=== PATIENT | female | born 1970 | race Caucasian/White ===

== ENCOUNTER 2016-05-05 18:29 | Inpatient (IN) | payer OTHER ==
[~2016-05-05] VITALS: Ht 165.1 cm; Wt 91.9 kg
[2016-05-05 19:02] LABS: BASO % 0.2 %; BASO ABS # 0.03 K/uL (0-0.2); COMPLETE YES; EOS % 1.8 %; HEMATOCRIT 37.7 % (37-47); IG% 0.4 %; LYMPH % 25.7 %; LYMPH ABS # 3.19 K/uL (1.2-3.4); MEAN CELL VOLUME 78.7 fL (80-100); MEAN CORPUSCULAR HEMOGLOBIN 27.6 pg (25-34); MONO % 7.6 %; NEUT % 64.3 %; PLATELET COUNT 306 K/uL (130-400); RED BLOOD COUNT 4.79 M/uL (4.2-5.4); WHITE BLOOD COUNT 12.43 K/uL (4.8-10.8)
--- NOTE | 2016-05-05 19:03 | DIAGNOSTIC IMAGING REPORT ---
CHEST ONE VIEW PORTABLE HISTORY: Altered mental status. COMPARISON: None. FINDINGS: The lungs are clear. Cardiac silhouette is normal in size. No pleural effusions. No pneumothorax. IMPRESSION: No acute process. Electronically signed by: Fadi Mckenzie M.D. 05/05/2016 7:02 PM Dictated Date/Time: 05/05/2016 7:01 PM
[2016-05-05 19:05] LABS: URINE APPEARANCE CLEAR (CLEAR); URINE BILIRUBIN NEG (NEG); URINE COLOR YELLOW; URINE EPITHELIAL CELL AUTO >30 /lpf (0-5); URINE NITRITE POS (NEG); URINE SPECIFIC GRAVITY 1.023 (1.000-1.030); UROBILINOGEN NEG (NEG); ZZURINE CULT IF INDIC CATH YES
[2016-05-05 19:08] LABS: MANUAL MICROSCOPIC REQUIRED? NO; REVIEW REQ? NO
--- NOTE | 2016-05-05 19:11 | DIAGNOSTIC IMAGING REPORT ---
ADDENDUM A 2.8 cm posterior fossa arachnoid cyst. Electronically signed by: Fadi Mckenzie M.D. 05/05/2016 11:17 PM Dictated Date/Time: 05/05/2016 11:17 PM ORIGINAL REPORT HEAD CT NONCONTRAST CT DOSE: 537.48 mGy.cm HISTORY: Altered mental status. TECHNIQUE: Multiaxial CT images of the head were performed without the use of intravenous contrast. Automated exposure control was utilized for this study. Comparison: None. Findings: The paranasal sinuses and mastoid air cells are clear. There is a large area of encephalomalacia in involving the majority of the right frontal lobe. This is consistent with an old infarct. There is no mass, hematoma or midline shift. There is mild dilatation of the right lateral ventricle due to the encephalomalacia. There are few small scattered hypodense areas within the periphery of the left parietal lobe, left occipital lobe, and within the left basal ganglia. The dominant focus within the left parietal lobe on image 22 measures 1.7 cm. These likely represent small acute to subacute infarcts. Impression: 1. A few small hypodense areas within the periphery of the left parietal lobe, left occipital lobe, and within the left basal ganglia. These are consistent with acute to subacute infarcts. 2. Old large infarct involving the majority of the right frontal lobe. Electronically signed by: Fadi Mckenzie M.D. 05/05/2016 7:09 PM Dictated Date/Time: 05/05/2016 7:03 PM
[2016-05-05 19:16] LABS: INR 0.9 (0.9-1.1); PARTIAL THROMBOPLASTIN RATIO 0.8; PROTHROMBIN TIME (PATIENT) 9.7 SECONDS (9.0-12.0)
[2016-05-05] MEDS ORDERED: ASPIRIN 324 MG CHEW PO STA (19:20)
[2016-05-05 19:23] LABS: BLOOD UREA NITROGEN 25 mg/dl (7-18); BUN/CREATININE RATIO 17.9 (10-20); CALCIUM 8.9 mg/dl (8.5-10.1); CARBON DIOXIDE 24 mmol/L (21-32); CHLORIDE 103 mmol/L (98-107); GLUCOSE 340 mg/dl (70-99); POTASSIUM 4.1 mmol/L (3.5-5.1); SODIUM 137 mmol/L (136-145)
[2016-05-05 19:26] LABS: ALT/SGPT 28 U/L (12-78); AST/SGOT 11 U/L (15-37)
[2016-05-05 19:33] LABS: ALKALINE PHOSPHATASE 106 U/L (45-117); BETA-HYDROXYBUTYRATE 3.03 mg/dL (0.2-2.81)
[2016-05-05] MEDS ORDERED: GLUCOSE 40% GEL 15 GM TUBE PO PRN (19:45)
[2016-05-05] MEDS ORDERED: DEXTROSE 50% 50 ML SYR IV PRN (19:45)
[2016-05-05] MEDS ORDERED: ACETAMINOPHEN IV 100 ML IV PRN (19:45)
[2016-05-05] MEDS ORDERED: OPTIRAY 320 IV PRN (19:45)
[2016-05-05] MEDS ORDERED: ONDANSETRON INJ 2 MG/ML 2 ML VIAL IV PRN (19:45)
[2016-05-05] MEDS ORDERED: GLUCOSE 10 TABS/TUBE PO PRN (19:45)
[2016-05-05] MEDS ORDERED: GLUCAGON FOR INJ 1 MG VIAL SQ PRN (19:45)
[2016-05-05] MEDS ORDERED: DiphenhydrAMINE HCL 50 MG/ML VIAL IV PRN ×2 (19:45)
[2016-05-05] MEDS ORDERED: PHARMACIST DISCHARGE MED REC CONSULT PRN (19:45)
[2016-05-05] MEDS ORDERED: ASPIRIN 300 MG SUPP PR ONE (20:00)
--- NOTE | 2016-05-05 20:10 | EMERGENCY ROOM VISIT NOTE ---
History Report prepared by Belen: Jacques Lam Under the Supervision of: Dr. Omar Paredes D.O. First contact with patient: 18:24 Chief Complaint: ALTERED MENTAL STATUS Stated Complaint: ALETERED MENTAL STATUS History of Present Illness The patient is a 45 year old female who presents to the Emergency Room for a mental health evaluation. This HPI and ROS is limited due to altered mental status. Per EMS, the patient's name is Deisi Colby. She was in an unknown hospital yesterday for a stoke. She signed out AMA. She also would not tell EMS anything. She was found in the back of her 's truck with urine underneath of her. When they asked the patient questions, she would just stare. Her blood sugar was 325. It is unknown if the patient lost consciousness, but her lungs are clear. She keeps her left arm rigid which has been occurring for longer than a week but more than a month. She was also crying when EMS arrived. The did not tell EMS anything. They got in touch with the patient's [id number], and she told EMS that the patient has a history of TIA's. The patient seems to be able to answer specific yes or no questions. She denied any fear of or harm done by her . The patient was given 0.4 mg Narcan en ROUTE with no change. Patient denies headache, change in vision, fevers, chest pain, shortness of breath, nausea, vomiting, diarrhea, pain with urination, melena, and any other pain. She does not use IV drugs. She is not on blood thinners. 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 Review of Systems Limited due to AMS. Past Medical & Surgical Medical Problems: (1) CVA (cerebral vascular accident) The patient has a history of strokes and TIA's. She denies any history of seizures. Family History Unable to obtain. Social History Smoking Status: Unknown if Ever Smoked Smokeless Tobacco Use: Unknown Drug Use: none Marital Status: Housing Status: lives with significant other Current/Historical Medications Scheduled Insulin Glargine (Lantus Solostar), 10 UNITS SC QPM Allergies Coded Allergies: Penicillins (Unverified Allergy, Unknown, UNKNOWN, 05/05/16) Physical Exam Vital Signs Date Time Temp Pulse Resp B/P Pulse Ox O2 Delivery O2 Flow Rate FiO2 05/05/16 19:49 96 20 204/105 98 Room Air 05/05/16 19:03 92 16 187/109 97 Room Air 05/05/16 18:39 96 05/05/16 18:34 37.0 97 23 225/106 97 Room Air 05/05/16 18:34 97 Room Air Physical Exam GENERAL: alert, sitting up in bed, able to transfer from stretcher to bed, holding left upper extremity against chest, on nasal canula. EYE EXAM: normal conjunctiva, PERRL and EOM's intact OROPHARYNX: no exudate, no erythema, lips, buccal mucosa, and tongue normal and mucous membranes are moist NECK: supple, no nuchal rigidity, no adenopathy, non-tender LUNGS: Clear to auscultation. Normal chest wall mechanics HEART: no murmurs, S1 normal and S2 normal, tachycardic ABDOMEN: abdomen soft, non-tender, normo-active bowel sounds, no masses, no rebound or guarding. BACK: Back is symmetrical on inspection and there is no deformity, no midline tenderness, no CVA tenderness. SKIN: no rashes and no bruising UPPER EXTREMITIES: upper extremities are grossly normal. LOWER EXTREMITIES: No pitting edema. NEURO EXAM: Alert, follows commands, answers yes or no questions, left arm has slight rigidity with grasp and is held against chest, left arm is weaker than right, flexion and extension EHL 5/5, gross sensation intact. Medical Decision & Procedures ER Provider Diagnostic Interpretation: Radiology results have been interpreted by the radiologist and reviewed by me. CHEST ONE VIEW PORTABLE HISTORY: Altered mental status. COMPARISON: None. FINDINGS: The lungs are clear. Cardiac silhouette is normal in size. No pleural effusions. No pneumothorax. IMPRESSION: No acute process. Electronically signed by: Fadi Mckenzie M.D. 05/05/2016 7:02 PM Dictated Date/Time: 05/05/2016 7:[address] DOSE: 537.48 mGy.cm HISTORY: Altered mental status. TECHNIQUE: Multiaxial CT images of the head were performed without the use of intravenous contrast. Automated exposure control was utilized for this study. Comparison: None. Findings: The paranasal sinuses and mastoid air cells are clear. There is a large area of encephalomalacia in involving the majority of the right frontal lobe. This is consistent with an old infarct. There is no mass, hematoma or midline shift. There is mild dilatation of the right lateral ventricle due to the encephalomalacia. There are few small scattered hypodense areas within the periphery of the left parietal lobe, left occipital lobe, and within the left basal ganglia. The dominant focus within the left parietal lobe on image 22 measures 1.7 cm. These likely represent small acute to subacute infarcts. Impression: 1. A few small hypodense areas within the periphery of the left parietal lobe, left occipital lobe, and within the left basal ganglia. These are consistent with acute to subacute infarcts. 2. Old large infarct involving the majority of the right frontal lobe. Electronically signed by: Fadi Mckenzie M.D. 05/05/2016 7:09 PM Dictated Date/Time: 05/05/2016 7:03 PM Laboratory Results 05/05/16 18:05 Red Blood Count 4.79, Mean Corpuscular Volume 78.7, Mean Corpuscular Hemoglobin 27.6, Mean Corpuscular Hemoglobin Concent 35.0, Mean Platelet Volume 10.0, Neutrophils (%) (Auto) 64.3, Lymphocytes (%) (Auto) 25.7, Monocytes (%) (Auto) 7.6, Eosinophils (%) (Auto) 1.8, Basophils (%) (Auto) 0.2, Neutrophils # (Auto) 8.00, Lymphocytes # (Auto) 3.19, Monocytes # (Auto) 0.94, Eosinophils # (Auto) 0.22, Basophils # (Auto) 0.03 05/05/16 18:05 Test 05/05/16 18:05 05/05/16 18:46 05/05/16 18:49 White Blood Count 12.43 K/uL (4.8-10.8) Red Blood Count 4.79 M/uL (4.2-5.4) Hemoglobin 13.2 g/dL (12.0-16.0) Hematocrit 37.7 % (37-47) Mean Corpuscular Volume 78.7 fL (80-100) Mean Corpuscular Hemoglobin 27.6 pg (25-34) Mean Corpuscular Hemoglobin Concent 35.0 g/dl (32-36) Platelet Count 306 K/uL (130-400) Mean Platelet Volume 10.0 fL (7.4-10.4) Neutrophils (%) (Auto) 64.3 % Lymphocytes (%) (Auto) 25.7 % Monocytes (%) (Auto) 7.6 % Eosinophils (%) (Auto) 1.8 % Basophils (%) (Auto) 0.2 % Neutrophils # (Auto) 8.00 K/uL (1.4-6.5) Lymphocytes # (Auto) 3.19 K/uL (1.2-3.4) Monocytes # (Auto) 0.94 K/uL (0.11-0.59) Eosinophils # (Auto) 0.22 K/uL (0-0.5) Basophils # (Auto) 0.03 K/uL (0-0.2) RDW Standard Deviation 37.1 fL (36.4-46.3) RDW Coefficient of Variation 12.9 % (11.5-14.5) Immature Granulocyte % (Auto) 0.4 % Immature Granulocyte # (Auto) 0.05 K/uL (0.00-0.02) Prothrombin Time 9.7 SECONDS (9.0-12.0) Prothromb Time International Ratio 0.9 (0.9-1.1) Activated Partial Thromboplast Time 21.7 SECONDS (21.0-31.0) Partial Thromboplastin Ratio 0.8 Anion Gap 10.0 mmol/L (3-11) Estimated GFR () 53.2 Estimated GFR (Non- 45.9 BUN/Creatinine Ratio 17.9 (10-20) Calcium Level 8.9 mg/dl (8.5-10.1) Total Bilirubin 0.3 mg/dl (0.2-1) Direct Bilirubin < 0.1 mg/dl (0-0.2) Aspartate Amino Transf (AST/SGOT) 11 U/L (15-37) Alanine Aminotransferase (ALT/SGPT) 28 U/L (12-78) Alkaline Phosphatase 106 U/L (45-117) Total Protein 8.2 gm/dl (6.4-8.2) Albumin 3.5 gm/dl (3.4-5.0) Beta-Hydroxybutyric Acid 3.03 mg/dL (0.2-2.81) Bedside Glucose 354 mg/dl (70-90) Urine Color YELLOW Urine Appearance CLEAR (CLEAR) Urine pH 6.0 (4.5-7.5) Urine Specific [place] 1.023 (1.000-1.030) Urine Protein 2+ (NEG) Urine Glucose (UA) 3+ (NEG) Urine Ketones NEG (NEG) Urine Occult Blood NEG (NEG) Urine Nitrite POS (NEG) Urine Bilirubin NEG (NEG) Urine Urobilinogen NEG (NEG) Urine Leukocyte Esterase NEG (NEG) Urine WBC (Auto) 1-5 /hpf (0-5) Urine RBC (Auto) 0-4 /hpf (0-4) Urine Hyaline Casts (Auto) 0 /lpf (0-5) Urine Epithelial Cells (Auto) >30 /lpf (0-5) Urine Bacteria (Auto) 3+ (NEG) Laboratory results per my review. ECG Indication: altered mental status Rate (beats per minute): 100 Rhythm: sinus tachycardia Findings: T-wave inversion, left axis deviation, other (AVL, Late R-wave progression) ED Course ED COURSE: Vital signs were reviewed and showed tachycardia and hypertensive. The patients medical record was reviewed The above diagnostic studies were performed and reviewed. ED treatments and interventions as stated above. 1811: The patient was evaluated in room A1. A complete history and physical examination was performed. 1850: I reevaluated the patient at this time. Her still has not arrived. Her blood pressure is trending downward. 1919: I updated the patient at this time. Aspirin 324 mg PO 0: Upon reevaluation, the patient is resting .I discussed my findings with the patient and she understands and agrees with the treatment plan. Based on the patients age, coexisting illnesses, exam and lab findings the decision to treat as an inpatient was made. The patient remained stable while under my care. The patient will be evaluated by Dr. Jonathan JAIN, for further management. He does not want a CTA of her head, chest, or neck. He will schedule the patient for an MRI. Medical Decision Differential diagnoses includes but is not limited to toxic, metabolic, infectious, traumatic, cardiac, neurologic, hematologic, psychiatric and inflammatory etiologies. Patient is a 45-year-old female who presents the ER via EMS. Per report from EMS the patient was in the back of a truck sleeping as her was driving truck. They are from [place]. Apparently the patient left AMA from hospital earlier today. Upon presentation to the ER she is able to answer yes no questions and follow all commands. She notes that she has had weakness in her left upper extremity which has been there for greater than a week but less than a month. She does not tell me when she started only answering yes and no questions. She denies all other complaints. She was extremely hypertensive. She admits to history of strokes. She denies allergies. We were unable to contact her to obtain a full history. Patient does have weakness and slight rigidity of her left upper extremity with grasp along with flexion and extension. Patient notes that this is been there for several days. I consequently did not call stroke alert because I am uncertain of the timeframe of the onset of the symptoms. We did friend her to CT following obtaining blood work. CT of her head shows an old infarct with multiple new acute and subacute infarcts. I did order a CTA of the head, neck and chest as these do appear to be embolic. I discussed this with Dr. Chandler who evaluated the patient and admitted her. He preferred to cancel the CTs and perform MRIs. I did cancel my CTAs. Patient was admitted to internal medicine. She was hypertensive but his blood pressure came down to 180s upon admission. She was given aspirin rectally. Unable to obtain any other additional history. I did also consider seizures which I favor more likely prior to the CTs which support strokes. Consults Time Called: 1934 Consulting Physician: Dr. Castillo - [facility] [place] Returned Call: 1939 He will be evaluating the patient further. Impression Primary Impression: CVA (cerebral vascular accident) Additional Impressions: Hypertension, Hyperglycemia Scribe Attestation The scribe's documentation has been prepared under my direction and personally reviewed by me in its entirety. I confirm that the note above accurately reflects all work, treatment, procedures, and medical decision making performed by me. Departure Information Dispostion Being Evaluated By Hospitalist Patient Instructions A Signature Page, My [facility]
[2016-05-05] MEDS ORDERED: INSDGIPEN SC (20:32)
--- NOTE | 2016-05-05 22:40 | DIAGNOSTIC IMAGING REPORT ---
Brain MRA HISTORY: Abnormal head CT. Stroke - Attention to [place] [facility] [place] TECHNIQUE: 3-D [id number] MRA of the brain was performed without contrast. COMPARISON STUDY: Head CT 05/05/2016. FINDINGS: Motion artifact results in suboptimal evaluation. The distal vertebral arteries, basilar artery, bilateral ingot stripper are small in caliber but appear patent. Diminutive right ICA. Faint visualization of the proximal right SOFY. The mid to distal right SOFY and the right MCA are not visualized. This is consistent with the patient's old right frontal infarct. Focal signal dropout at the proximal left MCA could be artifactual. The remaining portions of the left MCA are small in caliber but patent. The left SOFY is also small in caliber but patent. IMPRESSION: 1. Nonvisualized/occluded right MCA and SOFY consistent with the patient's history of an old large right frontal lobe infarct. The diminutive right ICA is also secondary to the old infarct. 2. Focal drop out of the proximal left MCA. However, the remaining portions of the left MCA are patent. Therefore, this could be artifact. 3. All of the patient's cerebral vessels appear to be small in caliber which could be congenital. 4. The posterior circulation appears patent. Electronically signed by: Fadi Mckenzie M.D. 05/05/2016 10:38 PM Dictated Date/Time: 05/05/2016 10:32 PM
[2016-05-05] MEDS ORDERED: MAGNEVIST IV PRN (23:00)
--- NOTE | 2016-05-05 23:07 | DIAGNOSTIC IMAGING REPORT ---
NECK MRA HISTORY: Altered mental status. Stroke symptoms. TECHNIQUE: [id number] and gadolinium-enhanced MRA of the neck was performed both before and after the intravenous administration of contrast. All measurements were calculated based on NASCET criteria. COMPARISON STUDY: None. FINDINGS: The aortic arch and proximal great vessels are widely patent. Mild hypoplastic right vertebral artery. The left vertebral artery is patent. Bilateral common carotid arteries are patent. There is a hypoplastic right internal carotid artery without significant stenosis. This corresponds to the old right-sided infarcts. The proximal to mid right vertebral artery appears irregular which may be due to the motion artifact. The distal right vertebral artery is patent. No significant stenosis within the left internal carotid artery. IMPRESSION: 1. No significant stenosis seen within the bilateral common or left internal carotid artery. 2. The right internal carotid artery is diminutive which likely corresponds to the patient's old right-sided infarct. Otherwise, no significant stenosis or occlusion. 3. The proximal to mid right vertebral artery is not well-visualized likely due to motion artifact. Electronically signed by: Fadi Mckenzie M.D. 05/05/2016 11:05 PM Dictated Date/Time: 05/05/2016 11:00 PM
[2016-05-05 23:15] VITALS: BP 173/103; PULSE 97; TEMP 36.9; O2SAT 98
[2016-05-05] MEDS: SODIUM CHLORIDE 0.9% 1000ML 1,000 ML IV SCH (23:52)
[2016-05-06] VITALS (10 sets, daily range): BP systolic 156–186; BP diastolic 95–112; PULSE 84–101; TEMP 36.4–37.4; O2SAT 94–98; BMI 33.7; BMI 34.0
[2016-05-06] MEDS: INSULIN ASPART 100 UNITS/ML 3 ML PEN SC SCH ×5 (00:32→21:08)
--- NOTE | 2016-05-06 01:34 | History and Physical ---
History & Physical Date & Time of Service: May 06, 2016 at 01:11 Chief Complaint: CVA Primary Care Physician: No Doctor, Assigned History of Present Illness Source: patient, hospital records The patient is a 45 old female who is brought to the emergency department due to altered mental status. She has found in the back of her 's truck and a poorly urine. He is a long distance truckerin [place]. She reportedly was in an unknown hospital yesterday being assessed for stroke but then signed out AMA, and would not telemetry in the setting tonight. EMS reports that when they found her left arm was rigid and reportedly has been that way for at least a week. The patient's [id number]-hs-zzj reports that she has history of TIAs. the patient herself is only able to answer yes or no to questions. She was given 0.4 mg of Narcan en route to the hospital with no change in status. Her blood sugar was 325 when tested by EMS at the scene. Social History Smoking Status: Unknown if Ever Smoked Smokeless Tobacco Use: Unknown Drug Use: none Marital Status: Housing status: lives with family Allergies Coded Allergies: Penicillins (Unverified Allergy, Unknown, UNKNOWN, 05/05/16) Home Medications Scheduled Insulin Glargine (Lantus Solostar), 10 UNITS SC QPM Review of Systems The patient is only able to answer yes or no to questions. So, the review of system, as history of present illness, is somewhat restricted. The patient denies chest pain, palpitations, shortness of breath, cough, lower extremity swelling, vision change, hearing change, sore throat, fevers, chills, sweats, weight change, fatigue, nausea, vomiting, abdominal pain, pelvic pain, blood in urine or stool, dysuria, urinary frequency or urgency, lightheadedness , dizziness, headache, rash, abnormal bruising or bleeding, imbalance, arthralgias or myalgias, back or neck pain, night sweats, or allergy symptoms. The review of systems is otherwise negative other than for that already noted above, and at least 10 systems have been reviewed. Physical Exam Vital Signs Date Time Temp Pulse Resp B/P Pulse Ox O2 Delivery O2 Flow Rate FiO2 05/05/16 20:51 92 20 178/111 94 05/05/16 19:49 96 20 204/105 98 Room Air 05/05/16 19:03 92 16 187/109 97 Room Air 05/05/16 18:39 96 05/05/16 18:34 37.0 97 23 225/106 97 Room Air 05/05/16 18:34 97 Room Air The patient is awake, well-developed and adequately nourished, normocephalic and atraumatic, lying in bed and in no acute distress. HEENT--PERRL, mucous membranes and oropharynx dry. Neck--supple, no JVD or bruits, thyroid normal, trachea midline, no adenopathy. Heart--normal S1 and S2, no extra beats, no murmurs, rubs or gallops. Lungs--clear bilaterally , no respiratory distress, no accessory muscle use. Abdomen--normal bowel sounds and soft, nontender and nondistended, no hernias or masses, no organomegaly. Extremities--no cyanosis, clubbing or edema. There are good distal pulses b/l. Dermatologic--normal skin turgor, normal color, warm and dry, no abnormal lymph nodes, no rash. Neurologic--cranial nerves II through XII grossly intact. Remainder of exam limited due to patient's responsiveness. Psychiatric--flat affect. Diagnostics Laboratory Results Results Past 24 Hours Test 05/05/16 18:05 05/05/16 18:46 05/05/16 18:49 05/05/16 20:16 Range/Units White Blood Count 12.43 4.8-10.8 K/uL Red Blood Count 4.79 4.2-5.4 M/uL Hemoglobin 13.2 12.0-16.0 g/dL Hematocrit 37.7 37-47 % Mean Corpuscular Volume 78.7 80-100 fL Mean Corpuscular Hemoglobin 27.6 25-34 pg Mean Corpuscular Hemoglobin Concent 35.0 32-36 g/dl Platelet Count 306 130-400 K/uL Mean Platelet Volume 10.0 7.4-10.4 fL Neutrophils (%) (Auto) 64.3 % Lymphocytes (%) (Auto) 25.7 % Monocytes (%) (Auto) 7.6 % Eosinophils (%) (Auto) 1.8 % Basophils (%) (Auto) 0.2 % Neutrophils # (Auto) 8.00 1.4-6.5 K/uL Lymphocytes # (Auto) 3.19 1.2-3.4 K/uL Monocytes # (Auto) 0.94 0.11-0.59 K/uL Eosinophils # (Auto) 0.22 0-0.5 K/uL Basophils # (Auto) 0.03 0-0.2 K/uL RDW Standard Deviation 37.1 36.4-46.3 fL RDW Coefficient of Variation 12.9 11.5-14.5 % Immature Granulocyte % (Auto) 0.4 % Immature Granulocyte # (Auto) 0.05 0.00-0.02 K/uL Prothrombin Time 9.7 9.0-12.0 SECONDS Prothromb Time International Ratio 0.9 0.9-1.1 Activated Partial Thromboplast Time 21.7 21.0-31.0 SECONDS Partial Thromboplastin Ratio 0.8 Sodium Level 137 136-145 mmol/L Potassium Level 4.1 3.5-5.1 mmol/L Chloride Level 103 98-107 mmol/L Carbon Dioxide Level 24 21-32 mmol/L Anion Gap 10.0 3-11 mmol/L Blood Urea Nitrogen 25 7-18 mg/dl Creatinine 1.40 0.60-1.20 mg/dl Estimated GFR () 53.2 Estimated GFR (Non- 45.9 BUN/Creatinine Ratio 17.9 10-20 Random Glucose 340 70-99 mg/dl Calcium Level 8.9 8.5-10.1 mg/dl Total Bilirubin 0.3 0.2-1 mg/dl Direct Bilirubin < 0.1 0-0.2 mg/dl Aspartate Amino Transf (AST/SGOT) 11 15-37 U/L Alanine Aminotransferase (ALT/SGPT) 28 12-78 U/L Alkaline Phosphatase 106 45-117 U/L Troponin I 0.033 0.032 0-0.045 ng/ml Total Protein 8.2 6.4-8.2 gm/dl Albumin 3.5 3.4-5.0 gm/dl Beta-Hydroxybutyric Acid 3.03 0.2-2.81 mg/dL Bedside Glucose 354 70-90 mg/dl Urine Color YELLOW Urine Appearance CLEAR CLEAR Urine pH 6.0 4.5-7.5 Urine Specific Gilson 1.023 1.000-1.030 Urine Protein 2+ NEG Urine Glucose (UA) 3+ NEG Urine Ketones NEG NEG Urine Occult Blood NEG NEG Urine Nitrite POS NEG Urine Bilirubin NEG NEG Urine Urobilinogen NEG NEG Urine Leukocyte Esterase NEG NEG Urine WBC (Auto) 1-5 0-5 /hpf Urine RBC (Auto) 0-4 0-4 /hpf Urine Hyaline Casts (Auto) 0 0-5 /lpf Urine Epithelial Cells (Auto) >30 0-5 /lpf Urine Bacteria (Auto) 3+ NEG Total Creatine Kinase 30 26-192 U/L Creatine Kinase MB 0.9 0.5-3.6 ng/ml Creatine Kinase MB Ratio 3.0 0-3.0 Test 05/05/16 23:53 Range/Units Bedside Glucose 335 70-90 mg/dl Microbiology Results 05/05/16 Urine Culture, Received Pending Diagnostic Radiology Patient Name: OLIVER BARRERA Unit Number: [id number] Dictated: 05/05/161900 Transcribed: 05/05/161900 [facility] Printed Date/Time: [~ rep prt dt]/[~ rep prt tm] [~ rep ct labl] - [~ rep ct ivnm] [facility] [place] [address] Dictated: 05/05/161900 Transcribed: 05/05/161900 Chairish Printed Date/Time: [~ rep prt dt]/[~ rep prt tm] [~ rep ct labl] - [~ rep ct ivnm] [~ rep ct add3]] CHEST ONE VIEW PORTABLE HISTORY: Altered mental status. COMPARISON: None. FINDINGS: The lungs are clear. Cardiac silhouette is normal in size. No pleural effusions. No pneumothorax. IMPRESSION: No acute process. Electronically signed by: Fadi Mkcenzie M.D. 05/05/2016 7:02 PM Dictated Date/Time: 05/05/2016 7:01 PM The status of this report is Signed. Draft = Not yet reviewed or approved by Radiologist. Signed = Reviewed and approved by Radiologist. <AttendingPhy></AttendingPhy> <FamilyPhy></FamilyPhy> <PrimaryPhy>No Doctor, Assigned</PrimaryPhy> <UnitNumber>[id number]</UnitNumber> <VisitNumber> [id number]</VisitNumber> <PatientName>OLIVER BARRERA</PatientName> < DateOfBirth>1970</DateOfBirth> <Location>[facility]</Location> <ServiceDate>01/11</ServiceDate> <MNE>ESINDI</MNE> <OrderingPhy>ParedesOmar ortega DO</ OrderingPhy> <OrderingPhyMNE>f rep ord dr tran</OrderingPhyMNE> <DictatingPhyMNE> f rep dict dr tran</DictatingPhyMNE> <CCListMNE>f rep ct mne</CCListMNE> < AdmittingPhyMNE>f pt admit dr tran</AdmittingPhyMNE> <AttendingPhyMNE>f pt attend dr tran</AttendingPhyMNE> <ConsultingPhyMNE>f pt consult dr tran</ConsultingPhyMNE> <FamilyPhyMNE>f pt fam dr tran</FamilyPhyMNE> <OtherPhyMNE>f pt other dr tran</OtherPhyMNE> < PrimaryPhyMNE>f pt prim care dr tran</PrimaryPhyMNE> <ReferringPhyMNE>f pt referring dr tran</ReferringPhyMNE> Patient Name: OLIVER ABRRERA Unit Number: [id number] Dictated: 05/05/162316 Transcribed: 05/05/162316 [facility] Printed Date/Time: [~ rep prt dt]/[~ rep prt tm] [~ rep ct labl] - [~ rep ct ivnm] [facility] [place] [address] Dictated: 05/05/162316 Transcribed: 05/05/162316 [facility] Printed Date/Time: [~ rep prt dt]/[~ rep prt tm] [~ rep ct labl] - [~ rep ct ivnm] ADDENDUM A 2.8 cm posterior fossa arachnoid cyst. Electronically signed by: Fadi Mckenzie M.D. 05/05/2016 11:17 PM Dictated Date/Time: 05/05/2016 11:17 PM ORIGINAL REPORT HEAD CT NONCONTRAST CT DOSE: 537.48 mGy.cm HISTORY: Altered mental status. TECHNIQUE: Multiaxial CT images of the head were performed without the use of intravenous contrast. Automated exposure control was utilized for this study. Comparison: None. Findings: The paranasal sinuses and mastoid air cells are clear. There is a large area of encephalomalacia in involving the majority of the right frontal lobe. This is consistent with an old infarct. There is no mass, hematoma or midline shift. There is mild dilatation of the right lateral ventricle due to the encephalomalacia. There are few small scattered hypodense areas within the periphery of the left parietal lobe, left occipital lobe, and within the left basal ganglia. The dominant focus within the left parietal lobe on image 22 measures 1.7 cm. These likely represent small acute to subacute infarcts. Impression: 1. A few small hypodense areas within the periphery of the left parietal lobe, left occipital lobe, and within the left basal ganglia. These are consistent with acute to subacute infarcts. 2. Old large infarct involving the majority of the right frontal lobe. Electronically signed by: Fadi Mckenzie M.D. 05/05/2016 7:09 PM Dictated Date/Time: 05/05/2016 7:03 PM The status of this report is Signed. Draft = Not yet reviewed or approved by Radiologist. Signed = Reviewed and approved by Radiologist. <AttendingPhy></AttendingPhy> <FamilyPhy>No Doctor, Assigned</FamilyPhy> < PrimaryPhy>No Doctor, Assigned</PrimaryPhy> <UnitNumber>[id number]</UnitNumber> <VisitNumber>[id number]</VisitNumber> <PatientName>OLIVER BARRERA</ PatientName> <DateOfBirth>1970</DateOfBirth> <Location>C.ED</Location> < ServiceDate>05/05/16</ServiceDate> <MNE>ESINDI</MNE> <OrderingPhy>Omar Paredes DO</OrderingPhy> <OrderingPhyMNE>f rep ord dr tran</OrderingPhyMNE> < DictatingPhyMNE>f rep dict dr tran</DictatingPhyMNE> <CCListMNE>f rep ct mne</ CCListMNE> <AdmittingPhyMNE>f pt admit dr tran</AdmittingPhyMNE> <AttendingPhyMNE >f pt attend dr tran</AttendingPhyMNE> <ConsultingPhyMNE>f pt consult dr tran</ConsultingPhyMNE> <FamilyPhyMNE>f pt fam dr tran</FamilyPhyMNE> <OtherPhyMNE>f pt other dr tran</OtherPhyMNE> < PrimaryPhyMNE>f pt prim care dr tran</PrimaryPhyMNE> <ReferringPhyMNE>f pt referring dr tran</ReferringPhyMNE> Patient Name: OLIVER BARRERA Unit Number: [id number] Dictated: 05/05/162299 Transcribed: 05/05/162299 [facility] Printed Date/Time: [~ rep prt dt]/[~ rep prt tm] [~ rep ct labl] - [~ rep ct ivnm] [facility] [place] [address] Dictated: 05/05/162299 Transcribed: 05/05/162299 [facility] Printed Date/Time: [~ rep prt dt]/[~ rep prt tm] [~ rep ct labl] - [~ rep ct ivnm] NECK MRA HISTORY: Altered mental status. Stroke symptoms. TECHNIQUE: [id number]-[id number] and gadolinium-enhanced MRA of the neck was performed both before and after the intravenous administration of contrast. All measurements were calculated based on NASCET criteria. COMPARISON STUDY: None. FINDINGS: The aortic arch and proximal great vessels are widely patent. Mild hypoplastic right vertebral artery. The left vertebral artery is patent. Bilateral common carotid arteries are patent. There is a hypoplastic right internal carotid artery without significant stenosis. This corresponds to the old right-sided infarcts. The proximal to mid right vertebral artery appears irregular which may be due to the motion artifact. The distal right vertebral artery is patent. No significant stenosis within the left internal carotid artery. IMPRESSION: 1. No significant stenosis seen within the bilateral common or left internal carotid artery. 2. The right internal carotid artery is diminutive which likely corresponds to the patient's old right-sided infarct. Otherwise, no significant stenosis or occlusion. 3. The proximal to mid right vertebral artery is not well-visualized likely due to motion artifact. Electronically signed by: Fadi Mckenzie M.D. 05/05/2016 11:05 PM Dictated Date/Time: 05/05/2016 11:00 PM The status of this report is Signed. Draft = Not yet reviewed or approved by Radiologist. Signed = Reviewed and approved by Radiologist. <AttendingPhy></AttendingPhy> <FamilyPhy>No Doctor, Assigned</FamilyPhy> < PrimaryPhy>No Doctor, Assigned</PrimaryPhy> <UnitNumber>[id number]</UnitNumber> <VisitNumber>[id number]</VisitNumber> <PatientName>HOLLYOLIVER</ PatientName> <DateOfBirth>1970</DateOfBirth> <Location>C.[facility]</Location> < ServiceDate>05/05/16</ServiceDate> <MNE>ESINDI</MNE> <OrderingPhy>William Castillo M.D.</OrderingPhy> <OrderingPhyMNE>f rep ord dr tran</OrderingPhyMNE> < DictatingPhyMNE>f rep dict dr tran</DictatingPhyMNE> <CCListMNE>f rep ct mne</ CCListMNE> <AdmittingPhyMNE>f pt admit dr tran</AdmittingPhyMNE> <AttendingPhyMNE >f pt attend dr tran</AttendingPhyMNE> <ConsultingPhyMNE>f pt consult dr tran</ConsultingPhyMNE> <FamilyPhyMNE>f pt fam dr tran</FamilyPhyMNE> <OtherPhyMNE>f pt other dr tran</OtherPhyMNE> < PrimaryPhyMNE>f pt prim care dr tran</PrimaryPhyMNE> <ReferringPhyMNE>f pt referring dr tran</ReferringPhyMNE> Patient Name: OLIVER BARRERA Unit Number: [id number] Dictated: 05/05/162231 Transcribed: 05/05/162231 [facility] Printed Date/Time: [~ rep prt dt]/[~ rep prt tm] [~ rep ct labl] - [~ rep ct ivnm] [facility] [place] [address] Dictated: 05/05/162231 Transcribed: 05/05/162231 [facility] Printed Date/Time: [~ rep prt dt]/[~ rep prt tm] [~ rep ct labl] - [~ rep ct ivnm] IMAGING [~ rep ct add3]] Brain MRA HISTORY: Abnormal head CT. Stroke - Attention to [place] TECHNIQUE: 3-D [id number]-[id number] MRA of the brain was performed without contrast. COMPARISON STUDY: Head CT 05/05/2016. FINDINGS: Motion artifact results in suboptimal evaluation. The distal vertebral arteries, basilar artery, bilateral insurance processing clerk are small in caliber but appear patent. Diminutive right ICA. Faint visualization of the proximal right SOFY. The mid to distal right SOFY and the right MCA are not visualized. This is consistent with the patient's old right frontal infarct. Focal signal dropout at the proximal left MCA could be artifactual. The remaining portions of the left MCA are small in caliber but patent. The left SOFY is also small in caliber but patent. IMPRESSION: 1. Nonvisualized/occluded right MCA and SOFY consistent with the patient's history of an old large right frontal lobe infarct. The diminutive right ICA is also secondary to the old infarct. 2. Focal drop out of the proximal left MCA. However, the remaining portions of the left MCA are patent. Therefore, this could be artifact. 3. All of the patient's cerebral vessels appear to be small in caliber which could be congenital. 4. The posterior circulation appears patent. Electronically signed by: Fadi Mckenzie M.D. 05/05/2016 10:38 PM Dictated Date/Time: 05/05/2016 10:32 PM The status of this report is Signed. Draft = Not yet reviewed or approved by Radiologist. Signed = Reviewed and approved by Radiologist. <AttendingPhy></AttendingPhy> <FamilyPhy>No Doctor, Assigned</FamilyPhy> < PrimaryPhy>No Doctor, Assigned</PrimaryPhy> <UnitNumber>[id number]</UnitNumber> <VisitNumber>[id number]</VisitNumber> <PatientName>OLIVER BARRERA</ PatientName> <DateOfBirth>1970</DateOfBirth> <Location>C.ED</Location> < ServiceDate>05/05/16</ServiceDate> <MNE>ESINDI</MNE> <OrderingPhy>William Castillo M.D.</OrderingPhy> <OrderingPhyMNE>f rep ord dr tran</OrderingPhyMNE> < DictatingPhyMNE>f rep dict dr tran</DictatingPhyMNE> <CCListMNE>f rep ct catherinee</ CCListMNE> <AdmittingPhyMNE>f pt admit dr tran</AdmittingPhyMNE> <AttendingPhyMNE >f pt attend dr tran</AttendingPhyMNE> <ConsultingPhyMNE>f pt consult dr tran</ConsultingPhyMNE> <FamilyPhyMNE>f pt fam dr tran</FamilyPhyMNE> <OtherPhyMNE>f pt other dr tran</OtherPhyMNE> < PrimaryPhyMNE>f pt prim care dr tran</PrimaryPhyMNE> <ReferringPhyMNE>f pt referring dr tran</ReferringPhyMNE> EKG EKG shows normal sinus rhythm at 100, with left axis deviation, left ventricular hypertrophy, prolonged QT interval, with no acute ST-T changes. Impression Assessment and Plan Acute to subacute embolic infarcts involving the left hemisphere, greatest in the left occipital and parietal lobes and left basal ganglia, with unchanged encephalomalacia in the right frontal lobe from a prior infarct. The patient be admitted to the telemetry unit, for serial cardiac enzymes, cardiac rhythm monitoring, and a 2-D echocardiogram with Dopplers. She has failed her swallowing study, and has received aspirin via rectal suppository while in the emergency department. She is not a candidate for anticoagulation due to the extensive nature of her previous stroke and her current stroke. Her brain MRA shows a nonvisualized were occluded right MCA and SOFY consistent with an old large right frontal lobe infarct. There is focal dropout of the proximal left MCA, but with remaining portions left MCA patent, this may be artifact. All the patient's cerebral vessels appear to be small in caliber which could be congenital. There is no significant stenosis seen within the bilateral common or left internal carotid arteries. The right internal carotid artery is diminutive was likely responsible patient's old right-sided infarct. We'll consult neurology to see patient in the a.m. Echocardiogram is ordered and will be done in the a.m. I have not ordered a hypercoagulable workup at this time, and this can be ordered if/when appropriate follow-up can be arranged. Permissive hypertension--the patient will be allowed to have blood pressure up to 180/100 J initial interval time related to the Lisa affect. We'll check a fasting lipid profile, however, the patient would not be able to take a statin due to failed swallowing test. Diabetes mellitus her blood sugar upon admission is in the 300s. A hemoglobin A1c has been added. For now we will place her on Accu-Cheks before meals and at bedtime with NovoLog coverage. If her A1c is elevated, would start her on long-acting insulin in a.m. Nothing by mouth status/renal insufficiency--her creatinine upon entrance labs is 1.40. We'll place her on IV fluids and have the patient seen by speech therapy. We'll follow serial basic metabolic panel and magnesium levels. Level of Care Telemetry Advanced Directives Existing Advance Directive: No Existing Living Will: No Existing Power of Forestry Aid: No Resuscitation Status FULL RESUSCITATION VTE Prophylaxis VTE Risk Assessment Done? Y/N: Yes Risk Level: High Given or contraindicated: SCD's
[2016-05-06 04:01] LABS: BASO % 0.3 %; BASO ABS # 0.03 K/uL (0-0.2); COMPLETE YES; EOS % 2.1 %; HEMATOCRIT 35.4 % (37-47); IG% 0.4 %; LYMPH % 27.4 %; LYMPH ABS # 3.05 K/uL (1.2-3.4); MEAN CELL VOLUME 79.9 fL (80-100); MEAN CORPUSCULAR HEMOGLOBIN 27.8 pg (25-34); MEAN CORPUSCULAR HGB CONC 34.7 g/dl (32-36); MEAN PLATELET VOLUME 9.6 fL (7.4-10.4); MONO % 5.7 %; NEUT % 64.1 %; PLATELET COUNT 264 K/uL (130-400); RED BLOOD COUNT 4.43 M/uL (4.2-5.4); WHITE BLOOD COUNT 11.13 K/uL (4.8-10.8)
[2016-05-06 04:17] LABS: PARTIAL THROMBOPLASTIN RATIO 0.9; PROTHROMBIN TIME (PATIENT) 10.3 SECONDS (9.0-12.0)
[2016-05-06 04:20] LABS: ALT/SGPT 26 U/L (12-78); AST/SGOT 9 U/L (15-37); BLOOD UREA NITROGEN 24 mg/dl (7-18); BUN/CREATININE RATIO 18.7 (10-20); CALCIUM 8.2 mg/dl (8.5-10.1); CARBON DIOXIDE 23 mmol/L (21-32); CHLORIDE 109 mmol/L (98-107); GLUCOSE 280 mg/dl (70-99); POTASSIUM 3.8 mmol/L (3.5-5.1); SODIUM 142 mmol/L (136-145)
[2016-05-06 04:22] LABS: ALKALINE PHOSPHATASE 90 U/L (45-117); CHOLESTEROL 254 mg/dl (0-200); CHOLESTEROL/HDL RATIO 7.5; HDL CHOLESTEROL 34 mg/dl; TRIGLYCERIDES 582 mg/dl (0-150)
[2016-05-06 06:27] LABS: ESTIMATED AVERAGE GLUCOSE 372 mg/dl; HA1C FLAG Normal (Normal)
[2016-05-06] MEDS ORDERED: INFLUENZA VIRUS QUAD VACCINE 0.5 ML SYR IM. ONE (06:45)
[2016-05-06] MEDS ORDERED: PNEUMOCOCCAL ADMINISTRATION CHARGE ONE (06:45)
[2016-05-06] MEDS ORDERED: PNEUMOCOCCAL POLYSACCHARIDES 25 MCG/0.5 ML VIAL/SYR IM. ONE (06:45)
[2016-05-06] MEDS ORDERED: INFLUENZA ADMINISTRATION CHARGE ONE (06:45)
--- NOTE | 2016-05-06 06:48 | DIAGNOSTIC IMAGING REPORT ---
MRI OF THE BRAIN WITHOUT AND WITH IV CONTRAST CLINICAL HISTORY: Stroke COMPARISON STUDY: Head CT dated 05/05/2016 TECHNIQUE: MRI of the brain was performed from the vertex to the skull base utilizing various T1 and T2 weighted sequences. Following the IV administration of 20 mL of Magnevist contrast, additional enhanced images were obtained. FINDINGS: Sagittal T1, axial diffusion, proton density and T2 weighted axial, coronal FLAIR, and pre and post axial T1-weighted images were acquired. These were supplemented with post gadolinium coronal T1 weighted images. No intra or extra-axial mass lesions are visualized. There are foci of reticular water diffusion involving portions of the left temporal, frontal, and parietal lobes. There is also a focus of restricted water diffusion within the left basal ganglia. There is a punctate focus of restricted water diffusion within the right parietal lobe. There is an old large right middle cerebral artery infarct. There is compensatory dilatation of the right lateral ventricle. Proton density T2-weighted and FLAIR images reveal there is right hemispheric edema surrounding the old large right MCA distribution infarct. There are foci of increased signal within the left hemisphere corresponding to areas of acute/subacute infarction. 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 There are no abnormal flow voids. There is no evidence of pathologic enhancement. IMPRESSION: 1. Old large right hemispheric infarct in the distribution of the right middle cerebral artery 2. Multiple foci of restricted water diffusion within the left hemisphere involving the left occipital parietal temporal and frontal lobes. There is also involvement of the left basal ganglia. The findings are consistent with multiple acute/subacute infarcts, possibly embolic. Electronically signed by: Paulo Brown M.D. 05/06/2016 6:45 AM Dictated Date/Time: 05/06/2016 6:41 AM
[2016-05-06] MEDS: ATORVASTATIN 20 MG TAB PO SCH (08:30)
[2016-05-06] MEDS ORDERED: ASPIRIN 81 MG ECTAB PO SCH (09:00)
[2016-05-06] MEDS ORDERED: ASPIRIN 300 MG SUPP PR SCH (09:00)
--- NOTE | 2016-05-06 09:56 | Neurology Consultation ---
Neurology Consultation Date of Consultation: May 06, 2016. Attending Physician: Kodak Knowles D.O. Primary Care Physician: No Doctor, Assigned Reason for Consultation: Stroke History of Present Illness Source: patient, spouse Mrs Deisi Colby is a 45 year old female with history of diabetes, long-term smoker, and previous TIA who presented from outside hospital to [facility] on . History was limited from the patient and initially taken from her spouse. He reports that over the weekend Deisi had a 24 hour period of not talking as much, and was not eating or smoking for a day which were all very unusual. He noticed she was incontinent of urine twice, and so took her to a hospital (? [facility]?) outside [place]. There she was admitted for a stroke workup, but a day later left AMA. The pts reports this was because she wanted to be with him and he had to leave on another truck journey. As they were driving yesterday, he noticed that she was very drowsy again, and she was incontinent again, and called EMS. Per EMS report, the patient and her would not provide much information, but she was found in the back of his truck with a puddle of urine underneath her. She would stare at EMS providers when asked questions. EMS got in touch with the patient's sister-in- law who reports the patient has a history of TIA's. The patient was given 0.4mg Narcan on the way to the hospital and had no change. She was found to have a blood sugar of 325. Upon arrival to [facility], she was found to have signs of acute ischemic stroke to the L parietal, L occipital, and L basal ganglia, with an old large infarct of the Right frontal lobe. She had head MRA, brain MRI, and neck MRA completed ( results below). She failed her swallow evaluation. Currently, upon my evaluation this morning, the patient is drowsy. Her reports that ideally the patient wants to go to [facility] in [place]. Upon further review with Dr Bender, the patient would reply with yes or no answers to questions. Past Medical/Surgical History Medical Problems: (1) Hyperglycemia Status: Acute (2) Hypertension Status: Acute (3) Type 2 DM (4) TIA PSHx: Pt reports no surgical Hx Family History Pt denies any family history of stroke, TIA, DVT, PE. Social History Deisi is from [place], and her is from [place]. Her is a long distance box truck washer and she has been going with him on his journeys. They have been 2 years. She also has 3 kids from a different partner, living in [place], [place], and [place]. She is a long-term smoker, would not specify how many per day. She denies alcohol or drug abuse. She reports she does have a PCP but did not specify whom. Smokeless Tobacco Use: Unknown Drug Use: none Marital Status: Housing Status: lives with significant other Allergies Coded Allergies: Penicillins (Unverified Allergy, Unknown, UNKNOWN, 05/05/16) Current Inpatient Medications Current Inpatient Medications Medications (Trade) Dose Ordered Sig/Gus Route Start Time Stop Time Status Last Admin Dose Admin Ioversol (Optiray 320) 125 ml UD PRN IV 05/05/16 19:45 05/09/16 19:44 Atorvastatin Calcium (Lipitor Tab) 20 mg QAM PO 05/06/16 09:00 06/05/16 08:59 Miscellaneous Information 1 ea 1 ea UD PRN N/A 05/05/16 19:45 06/04/16 19:44 Sodium Chloride (Nss 1000ml) 1,000 ml @ 100 mls/hr Q10H IV 05/05/16 23:30 06/04/16 23:29 05/05/16 23:52 100 MLS/HR Ondansetron HCl 4 mg 4 mg Q6H PRN IV 05/05/16 19:45 06/04/16 19:44 Acetaminophen (Ofirmev Iv) 100 ml @ 400 mls/hr Q8H PRN IV 05/05/16 19:45 06/04/16 19:44 Diphenhydramine HCl (Benadryl Inj) 25 mg Q4H PRN IV 05/05/16 19:45 06/04/16 19:44 Insulin Aspart (novoLOG ASPART) SLIDING SCALE If C... ACHS SC 05/05/16 21:00 06/04/16 20:59 05/06/16 07:00 3 UNITS Glucose (Glucose 40% Gel) UD PRN PO 05/05/16 19:45 06/04/16 19:44 Glucose (Glucose Chew Tab) 1 tabs UD PRN PO 05/05/16 19:45 06/04/16 19:44 Dextrose (Dextrose 50% 50ML Syringe) 50 ml UD PRN IV 05/05/16 19:45 06/04/16 19:44 Glucagon 1 mg 1 mg UD PRN SQ 05/05/16 19:45 06/04/16 19:44 Pantoprazole Sodium/Syringe (Protonix Inj/ Syringe) 10 ml @ 5 mls/min DAILY@11 IV 05/06/16 11:00 06/05/16 10:59 Gadopentetate Dimeglumine (Magnevist) 20 ml UD PRN IV 05/05/16 23:00 05/09/16 22:59 Aspirin (Aspirin Supp) 300 mg QAM SD 05/06/16 09:00 06/05/16 08:59 Review of Systems See HPI for pertinent positives & negatives. A total of 10 systems reviewed and were otherwise negative. Specifically, they were negative for dizziness, visual changes, chest pain, and she does report occasional weakness in her arms. Physical Exam Vital Signs (Past 24 Hrs): Date Time Temp Pulse Resp B/P Pulse Ox O2 Delivery O2 Flow Rate FiO2 05/06/16 08:00 Room Air 05/06/16 07:34 36.6 95 20 177/108 98 Room Air 05/06/16 05:30 36.9 97 18 173/103 98 Room Air 05/06/16 04:21 36.4 89 18 177/111 94 Room Air 05/06/16 04:00 Room Air 05/06/16 02:15 87 20 156/102 Room Air 05/05/16 23:59 Room Air 05/05/16 23:15 36.9 97 20 173/103 98 Room Air 05/05/16 20:51 92 20 178/111 94 05/05/16 19:49 96 20 204/105 98 Room Air 05/05/16 19:03 92 16 187/109 97 Room Air 05/05/16 18:39 96 05/05/16 18:34 37.0 97 23 225/106 97 Room Air 05/05/16 18:34 97 Room Air General: Drowsy, initially aggressive upon my exam, calmer with Dr Bender Pupils: Equal, reactive, midsize. Mouth: Poor dentition. Dry tongue. CVS: RRR, HS normal no murmurs, rubs, gallops Resp: Clear to auscultation bilaterally Abd: Soft, nontender. Neuro: Would not participate with full neurological exam. Awake but disoriented to time and place. CN II - XII grossly intact, though would not complete facial movements. Motor: seems weaker on left side, but would not comply with strength assessment. Sensation: intact bilaterally. Reflexes: 1+ in all modalities. Coordination: Would not participate with finger-nose. Did not assess gait. Extremities: No peripheral edema or tenderness. Laboratory Results Past 24 Hours: 05/06/16 03:55 Red Blood Count 4.43, Mean Corpuscular Volume 79.9, Mean Corpuscular Hemoglobin 27.8, Mean Corpuscular Hemoglobin Concent 34.7, Mean Platelet Volume 9.6, Neutrophils (%) (Auto) 64.1, Lymphocytes (%) (Auto) 27.4, Monocytes (%) (Auto) 5.7, Eosinophils (%) (Auto) 2.1, Basophils (%) (Auto) 0.3, Neutrophils # (Auto) 7.15, Lymphocytes # (Auto) 3.05, Monocytes # (Auto) 0.63, Eosinophils # (Auto) 0.23, Basophils # (Auto) 0.03 05/06/16 03:55 Test 05/05/16 18:05 05/05/16 18:49 05/05/16 20:16 05/06/16 03:55 Beta-Hydroxybutyric Acid 3.03 mg/dL (0.2-2.81) Urine Color YELLOW Urine Appearance CLEAR (CLEAR) Urine pH 6.0 (4.5-7.5) Urine Specific [place] 1.023 (1.000-1.030) Urine Protein 2+ (NEG) Urine Glucose (UA) 3+ (NEG) Urine Ketones NEG (NEG) Urine Occult Blood NEG (NEG) Urine Nitrite POS (NEG) Urine Bilirubin NEG (NEG) Urine Urobilinogen NEG (NEG) Urine Leukocyte Esterase NEG (NEG) Urine WBC (Auto) 1-5 /hpf (0-5) Urine RBC (Auto) 0-4 /hpf (0-4) Urine Hyaline Casts (Auto) 0 /lpf (0-5) Urine Epithelial Cells (Auto) >30 /lpf (0-5) Urine Bacteria (Auto) 3+ (NEG) Estimated Average Glucose 372 mg/dl Hemoglobin A1c 14.6 % (4.5-5.6) White Blood Count 11.13 K/uL (4.8-10.8) Red Blood Count 4.43 M/uL (4.2-5.4) Hemoglobin 12.3 g/dL (12.0-16.0) Hematocrit 35.4 % (37-47) Mean Corpuscular Volume 79.9 fL (80-100) Mean Corpuscular Hemoglobin 27.8 pg (25-34) Mean Corpuscular Hemoglobin Concent 34.7 g/dl (32-36) Platelet Count 264 K/uL (130-400) Mean Platelet Volume 9.6 fL (7.4-10.4) Neutrophils (%) (Auto) 64.1 % Lymphocytes (%) (Auto) 27.4 % Monocytes (%) (Auto) 5.7 % Eosinophils (%) (Auto) 2.1 % Basophils (%) (Auto) 0.3 % Neutrophils # (Auto) 7.15 K/uL (1.4-6.5) Lymphocytes # (Auto) 3.05 K/uL (1.2-3.4) Monocytes # (Auto) 0.63 K/uL (0.11-0.59) Eosinophils # (Auto) 0.23 K/uL (0-0.5) Basophils # (Auto) 0.03 K/uL (0-0.2) RDW Standard Deviation 38.0 fL (36.4-46.3) RDW Coefficient of Variation 13.1 % (11.5-14.5) Immature Granulocyte % (Auto) 0.4 % Immature Granulocyte # (Auto) 0.04 K/uL (0.00-0.02) Prothrombin Time 10.3 SECONDS (9.0-12.0) Prothromb Time International Ratio 1.0 (0.9-1.1) Activated Partial Thromboplast Time 24.0 SECONDS (21.0-31.0) Partial Thromboplastin Ratio 0.9 Anion Gap 10.0 mmol/L (3-11) Estimated GFR () 58.2 Estimated GFR (Non- 50.2 BUN/Creatinine Ratio 18.7 (10-20) Calcium Level 8.2 mg/dl (8.5-10.1) Magnesium Level 2.0 mg/dl (1.8-2.4) Total Bilirubin 0.3 mg/dl (0.2-1) Direct Bilirubin < 0.1 mg/dl (0-0.2) Aspartate Amino Transf (AST/SGOT) 9 U/L (15-37) Alanine Aminotransferase (ALT/SGPT) 26 U/L (12-78) Alkaline Phosphatase 90 U/L (45-117) Total Creatine Kinase 26 U/L (26-192) Creatine Kinase MB < 0.5 ng/ml (0.5-3.6) Creatine Kinase MB Ratio (0-3.0) Troponin I 0.021 ng/ml (0-0.045) Total Protein 7.2 gm/dl (6.4-8.2) Albumin 3.1 gm/dl (3.4-5.0) Triglycerides Level 582 mg/dl (0-150) Cholesterol Level 254 mg/dl (0-200) HDL Cholesterol 34 mg/dl LDL Cholesterol, Calculated mg/dl VLDL Cholesterol, Calculated mg/dl Cholesterol/HDL Ratio 7.5 Test 05/06/16 07:07 Bedside Glucose 277 mg/dl (70-90) Imaging CHEST ONE VIEW PORTABLE: IMPRESSION: No acute process. ADDENDUM A 2.8 cm posterior fossa arachnoid cyst. Electronically signed by: Fadi Mckenzie M.D. 05/05/2016 11:17 PM Dictated Date/Time: 05/05/2016 11:17 PM ORIGINAL REPORT HEAD CT NONCONTRAST CT DOSE: 537.48 mGy.cm HISTORY: Altered mental status. TECHNIQUE: Multiaxial CT images of the head were performed without the use of intravenous contrast. Automated exposure control was utilized for this study. Comparison: None. Findings: The paranasal sinuses and mastoid air cells are clear. There is a large area of encephalomalacia in involving the majority of the right frontal lobe. This is consistent with an old infarct. There is no mass, hematoma or midline shift. There is mild dilatation of the right lateral ventricle due to the encephalomalacia. There are few small scattered hypodense areas within the periphery of the left parietal lobe, left occipital lobe, and within the left basal ganglia. The dominant focus within the left parietal lobe on image 22 measures 1.7 cm. These likely represent small acute to subacute infarcts. Impression: 1. A few small hypodense areas within the periphery of the left parietal lobe, left occipital lobe, and within the left basal ganglia. These are consistent with acute to subacute infarcts. 2. Old large infarct involving the majority of the right frontal lobe. NECK MRA HISTORY: Altered mental status. Stroke symptoms. TECHNIQUE: [id number] and gadolinium-enhanced MRA of the neck was performed both before and after the intravenous administration of contrast. All measurements were calculated based on NASCET criteria. COMPARISON STUDY: None. FINDINGS: The aortic arch and proximal great vessels are widely patent. Mild hypoplastic right vertebral artery. The left vertebral artery is patent. Bilateral common carotid arteries are patent. There is a hypoplastic right internal carotid artery without significant stenosis. This corresponds to the old right-sided infarcts. The proximal to mid right vertebral artery appears irregular which may be due to the motion artifact. The distal right vertebral artery is patent. No significant stenosis within the left internal carotid artery. IMPRESSION: 1. No significant stenosis seen within the bilateral common or left internal carotid artery. 2. The right internal carotid artery is diminutive which likely corresponds to the patient's old right-sided infarct. Otherwise, no significant stenosis or occlusion. 3. The proximal to mid right vertebral artery is not well-visualized likely due to motion artifact. Brain MRA HISTORY: Abnormal head CT. Stroke - Attention to [facility] [place] TECHNIQUE: 3-D [id number]-oarlam MRA of the brain was performed without contrast. COMPARISON STUDY: Head CT 05/05/2016. FINDINGS: Motion artifact results in suboptimal evaluation. The distal vertebral arteries, basilar artery, bilateral printer helper are small in caliber but appear patent. Diminutive right ICA. Faint visualization of the proximal right SOFY. The mid to distal right SOFY and the right MCA are not visualized. This is consistent with the patient's old right frontal infarct. Focal signal dropout at the proximal left MCA could be artifactual. The remaining portions of the left MCA are small in caliber but patent. The left SOFY is also small in caliber but patent. IMPRESSION: 1. Nonvisualized/occluded right MCA and SOFY consistent with the patient's history of an old large right frontal lobe infarct. The diminutive right ICA is also secondary to the old infarct. 2. Focal drop out of the proximal left MCA. However, the remaining portions of the left MCA are patent. Therefore, this could be artifact. 3. All of the patient's cerebral vessels appear to be small in caliber which could be congenital. 4. The posterior circulation appears patent. Electronically signed by: Fadi Mcknezie M.D. 05/05/2016 10:38 PM Dictated Date/Time: 05/05/2016 10:32 PM Impression 45 yo F with previous TIAs & large R frontal lobe stroke, with new L parietal, occipital, and basal ganglia ischemic infarct. Modifiable risk factors include: smoking, poorly-controlled DM (HbA1c 14%), hyperlipidemia (triglycerides elevated) and potentially hypertension. She may have an underlying hypercoagulable state but investigating this would require her to follow up locally, which at this time it does not seem like she will do. Recommendations: 1. Would continue with aspirin therapy, rectally until pt demonstrates improvement with speech therapy 2. Aggressive physical, occupational, and speech therapy 3. Improved blood glucose control 4. Urine toxicology screen, if not already completed 5. Counselling for smoking cessation 6. Would start on statin therapy once PO can be tolerated 7. If patient does agree to follow up, would recommend hypercoagulable workup if not already completed at outside facility Thank you for allowing us to participate in the care of this patient. We will continue to follow. Neurology attending addendum: Patient seen and evaluated with resident. History and physical were reviewed with the resident and impression and plan was discussed with the resident. History taking is limited secondary to patient's mental status. I have no changes to the above-noted history. Patient is not able to tell me whether she is normally right-handed or left-handed. Exam: Gen.: Patient is alert and oriented sitting on the side of the bed in no acute distress Heart: Irregular rate and rhythm Extremities: No gross deformities or rashes noted Neurological examination: Mental status: Patient is alert and oriented to person and place only. Follows a few verbal commands correctly. Poor historian. Attention and concentration normal for the situation Speech is sparse and may have some component of expressive aphasia Cranial nerves: Funduscopic examination difficult to view. Pupils equally round and react to light. Difficult to assess visual chacon due to mental status. Extraocular muscles intact with no nystagmus. No facial asymmetry noted. Facial sensation grossly intact to touch. Tongue is midline. Hearing grossly intact to voice. Strength: Grossly intact and antigravity in all extremities. Mild weakness on the left upper and lower extremity grossly 4+/5 with the exception of left hand thumb abduction and finger extension 2/5. In addition the patient had increased tone in left upper extremity likely from stroke. Sensation: Grossly intact to touch in all extremities Deep tendon reflexes: +2 in bilateral biceps brachioradialis and patellar. Coordination: No ataxia or dysmetria noted with finger to nose testing Station sitting on the side of the bed was normal MRI of the brain reported images reviewed by myself. The patient does have scattered small acute left parietal, occipital, and basal ganglia ischemic strokes that appear embolic. In addition she has evidence of an old right frontal ischemic stroke MRA of the head and neck are notable for what appears to be an occlusion of the right MCA and SOFY. Otherwise MRA is unremarkable A total cholesterol 254, HDL 34, triglycerides 582, LDL was not able to be calculated secondary to high triglycerides. hemoglobin A1c 14.6. Impression and recommendations: This is a 45-year-old female with what appears to be an embolic cerebral ischemic strokes in the left parietal, occipital, and basal ganglia with evidence of an old right frontal ischemic stroke in the right MCA and SOFY territories. Stroke etiology at this time is unknown. Patient does have known stroke risk factors of dyslipidemia, diabetes, and tobacco abuse. The patient denies being on any antiplatelets at the time of her strokes. Neurological deficits include encephalopathy, expressive aphasia, and old left hemiplegia. Recommend tox screen and hypercoagulable workup. Since patient is not from this area, it'll be imperative that her primary care physician follows up hypercoagulable labs. Follow-up echocardiogram results to rule out cardioembolic sources for stroke. As an outpatient I would recommend considering a Holter monitor to rule out paroxysmal A. fib if hypercoagulable workup is unremarkable. Agree with aspirin 81 mg daily for stroke prevention. Initiate statin therapy for dyslipidemia when able. Avoid dehydration and hypotension as this could extend her stroke. Blood pressure recommendations while in hospital 175/95-150/80 For the first month after hospital discharge, blood pressure recommendations 150 /90-130/80. After the first month, blood pressure recommendations 130/80-110/70 Follow-up PT/OT and speech recommendations for discharge planning Neurological recommendations for stroke risk factor modifications: Total cholesterol goal 100-200, and LDL goal less than 100 Hemoglobin A1c goal less than 7 Encourage regular cardiovascular exercise at least 30 minutes 3 times per week Tobacco cessation counseling. Resident Tracking Resident Involvement: Resident Care Provided Care Provided: Adult Hospital Medicine (Neurology)
[2016-05-06 11:02] LABS: CKMB/CK RATIO 3.6 (0-3.0)
[2016-05-06] MEDS: PANTOprazole INJ 40 MG in SYRINGE 0 ML IV SCH (11:10)
--- NOTE | 2016-05-06 12:36 | Hospitalist Progress Note ---
Hospitalist Progress Note Date of Service May 06, 2016. Subjective Pt evaluation today including: physical exam, chart review, lab review, review of studies, review of inpatient medication list Voiding: incontinence Patient was easily aroused by calling name. Quickly shut eyes and would not respond to questions/ participate in exam. ROS not obtained due to patient's status. Medications Current Inpatient Medications Medications (Trade) Dose Ordered Sig/Gus Route Start Time Stop Time Status Last Admin Dose Admin Ioversol (Optiray 320) 125 ml UD PRN IV 05/05/16 19:45 05/09/16 19:44 Atorvastatin Calcium (Lipitor Tab) 20 mg QAM PO 05/06/16 09:00 06/05/16 08:59 Miscellaneous Information 1 ea 1 ea UD PRN N/A 05/05/16 19:45 06/04/16 19:44 Sodium Chloride (Nss 1000ml) 1,000 ml @ 100 mls/hr Q10H IV 05/05/16 23:30 06/04/16 23:29 05/05/16 23:52 100 MLS/HR Ondansetron HCl 4 mg 4 mg Q6H PRN IV 05/05/16 19:45 06/04/16 19:44 Acetaminophen (Ofirmev Iv) 100 ml @ 400 mls/hr Q8H PRN IV 05/05/16 19:45 06/04/16 19:44 Diphenhydramine HCl (Benadryl Inj) 25 mg Q4H PRN IV 05/05/16 19:45 06/04/16 19:44 Insulin Aspart (novoLOG ASPART) SLIDING SCALE If C... ACHS SC 05/05/16 21:00 06/04/16 20:59 05/06/16 07:00 3 UNITS Glucose (Glucose 40% Gel) UD PRN PO 05/05/16 19:45 06/04/16 19:44 Glucose (Glucose Chew Tab) 1 tabs UD PRN PO 05/05/16 19:45 06/04/16 19:44 Dextrose (Dextrose 50% 50ML Syringe) 50 ml UD PRN IV 05/05/16 19:45 06/04/16 19:44 Glucagon 1 mg 1 mg UD PRN SQ 05/05/16 19:45 06/04/16 19:44 Pantoprazole Sodium/Syringe (Protonix Inj/ Syringe) 10 ml @ 5 mls/min DAILY@11 IV 05/06/16 11:00 06/05/16 10:59 Gadopentetate Dimeglumine (Magnevist) 20 ml UD PRN IV 05/05/16 23:00 05/09/16 22:59 Aspirin (Aspirin Supp) 300 mg QAM TX 05/06/16 09:00 06/05/16 08:59 Objective Vital Signs Date Time Temp Pulse Resp B/P Pulse Ox O2 Delivery O2 Flow Rate FiO2 05/06/16 08:00 Room Air 05/06/16 07:34 36.6 95 20 177/108 98 Room Air 05/06/16 05:30 36.9 97 18 173/103 98 Room Air 05/06/16 04:21 36.4 89 18 177/111 94 Room Air 05/06/16 04:00 Room Air 05/06/16 02:15 87 20 156/102 Room Air 05/05/16 23:59 Room Air 05/05/16 23:15 36.9 97 20 173/103 98 Room Air 05/05/16 20:51 92 20 178/111 94 05/05/16 19:49 96 20 204/105 98 Room Air 05/05/16 19:03 92 16 187/109 97 Room Air 05/05/16 18:39 96 05/05/16 18:34 37.0 97 23 225/106 97 Room Air 05/05/16 18:34 97 Room Air Physical Exam General Appearance: no apparent distress, + obese Eyes: PERRL ENT: hearing grossly normal Neck: supple Respiratory/Chest: no respiratory distress, no accessory muscle use Cardiovascular: regular rate, rhythm, no edema Abdomen: normal bowel sounds, non tender, soft Extremities: no pedal edema, no calf tenderness Neurologic/Psychiatric: + pertinent finding (drowsy, would not participate in exam ) Skin: normal color, warm/dry, no rash Laboratory Results Last 24 Hours Test 05/05/16 18:05 05/05/16 18:46 05/05/16 18:49 05/05/16 20:16 White Blood Count 12.43 K/uL Red Blood Count 4.79 M/uL Hemoglobin 13.2 g/dL Hematocrit 37.7 % Mean Corpuscular Volume 78.7 fL Mean Corpuscular Hemoglobin 27.6 pg Mean Corpuscular Hemoglobin Concent 35.0 g/dl Platelet Count 306 K/uL Mean Platelet Volume 10.0 fL Neutrophils (%) (Auto) 64.3 % Lymphocytes (%) (Auto) 25.7 % Monocytes (%) (Auto) 7.6 % Eosinophils (%) (Auto) 1.8 % Basophils (%) (Auto) 0.2 % Neutrophils # (Auto) 8.00 K/uL Lymphocytes # (Auto) 3.19 K/uL Monocytes # (Auto) 0.94 K/uL Eosinophils # (Auto) 0.22 K/uL Basophils # (Auto) 0.03 K/uL RDW Standard Deviation 37.1 fL RDW Coefficient of Variation 12.9 % Immature Granulocyte % (Auto) 0.4 % Immature Granulocyte # (Auto) 0.05 K/uL Prothrombin Time 9.7 SECONDS Prothromb Time International Ratio 0.9 Activated Partial Thromboplast Time 21.7 SECONDS Partial Thromboplastin Ratio 0.8 Sodium Level 137 mmol/L Potassium Level 4.1 mmol/L Chloride Level 103 mmol/L Carbon Dioxide Level 24 mmol/L Anion Gap 10.0 mmol/L Blood Urea Nitrogen 25 mg/dl Creatinine 1.40 mg/dl Estimated GFR () 53.2 Estimated GFR (Non- 45.9 BUN/Creatinine Ratio 17.9 Random Glucose 340 mg/dl Calcium Level 8.9 mg/dl Total Bilirubin 0.3 mg/dl Direct Bilirubin < 0.1 mg/dl Aspartate Amino Transf (AST/SGOT) 11 U/L Alanine Aminotransferase (ALT/SGPT) 28 U/L Alkaline Phosphatase 106 U/L Troponin I 0.033 ng/ml 0.032 ng/ml Total Protein 8.2 gm/dl Albumin 3.5 gm/dl Beta-Hydroxybutyric Acid 3.03 mg/dL Bedside Glucose 354 mg/dl Urine Color YELLOW Urine Appearance CLEAR Urine pH 6.0 Urine Specific [place] 1.023 Urine Protein 2+ Urine Glucose (UA) 3+ Urine Ketones NEG Urine Occult Blood NEG Urine Nitrite POS Urine Bilirubin NEG Urine Urobilinogen NEG Urine Leukocyte Esterase NEG Urine WBC (Auto) 1-5 /hpf Urine RBC (Auto) 0-4 /hpf Urine Hyaline Casts (Auto) 0 /lpf Urine Epithelial Cells (Auto) >30 /lpf Urine Bacteria (Auto) 3+ Estimated Average Glucose 372 mg/dl Hemoglobin A1c 14.6 % Total Creatine Kinase 30 U/L Creatine Kinase MB 0.9 ng/ml Creatine Kinase MB Ratio 3.0 Test 05/05/16 23:53 05/06/16 03:55 05/06/16 07:07 05/06/16 09:41 Bedside Glucose 335 mg/dl 277 mg/dl White Blood Count 11.13 K/uL Red Blood Count 4.43 M/uL Hemoglobin 12.3 g/dL Hematocrit 35.4 % Mean Corpuscular Volume 79.9 fL Mean Corpuscular Hemoglobin 27.8 pg Mean Corpuscular Hemoglobin Concent 34.7 g/dl Platelet Count 264 K/uL Mean Platelet Volume 9.6 fL Neutrophils (%) (Auto) 64.1 % Lymphocytes (%) (Auto) 27.4 % Monocytes (%) (Auto) 5.7 % Eosinophils (%) (Auto) 2.1 % Basophils (%) (Auto) 0.3 % Neutrophils # (Auto) 7.15 K/uL Lymphocytes # (Auto) 3.05 K/uL Monocytes # (Auto) 0.63 K/uL Eosinophils # (Auto) 0.23 K/uL Basophils # (Auto) 0.03 K/uL RDW Standard Deviation 38.0 fL RDW Coefficient of Variation 13.1 % Immature Granulocyte % (Auto) 0.4 % Immature Granulocyte # (Auto) 0.04 K/uL Prothrombin Time 10.3 SECONDS Prothromb Time International Ratio 1.0 Activated Partial Thromboplast Time 24.0 SECONDS Partial Thromboplastin Ratio 0.9 Sodium Level 142 mmol/L Potassium Level 3.8 mmol/L Chloride Level 109 mmol/L Carbon Dioxide Level 23 mmol/L Anion Gap 10.0 mmol/L Blood Urea Nitrogen 24 mg/dl Creatinine 1.30 mg/dl Estimated GFR () 58.2 Estimated GFR (Non- 50.2 BUN/Creatinine Ratio 18.7 Random Glucose 280 mg/dl Calcium Level 8.2 mg/dl Magnesium Level 2.0 mg/dl Total Bilirubin 0.3 mg/dl Direct Bilirubin < 0.1 mg/dl Aspartate Amino Transf (AST/SGOT) 9 U/L Alanine Aminotransferase (ALT/SGPT) 26 U/L Alkaline Phosphatase 90 U/L Total Creatine Kinase 26 U/L Creatine Kinase MB < 0.5 ng/ml Creatine Kinase MB Ratio Troponin I 0.021 ng/ml Total Protein 7.2 gm/dl Albumin 3.1 gm/dl Triglycerides Level 582 mg/dl Cholesterol Level 254 mg/dl HDL Cholesterol 34 mg/dl LDL Cholesterol, Calculated mg/dl VLDL Cholesterol, Calculated mg/dl Cholesterol/HDL Ratio 7.5 Assessment and Plan The patient is a 45 old female who is brought to the emergency department due to altered mental status. She has found in the back of her 's truck and a poorly urine. He is a long distance director religious education in [place]. She reportedly was in an unknown hospital yesterday being assessed for stroke but then signed out AMA, and would not telemetry in the setting tonight. EMS reports that when they found her left arm was rigid and reportedly has been that way for at least a week. The patient's [id number] reports that she has history of TIAs. the patient herself is only able to answer yes or no to questions. She was given 0.4 mg of Narcan en route to the hospital with no change in status. Her blood sugar was 325 when tested by EMS at the scene. 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 Consult speech therapy, appreciate recommendations -Aspirin via rectal suppository until oral intake is achieved -Consult neurology, appreciate recommendations --Hypercoagulable workup, will need outpatient follow-up. --If Hypercoagulable workup is negative, recommend holter monitor to evaluate paroxysmal a.fib --Toxicology screen Permissive hypertension: -Continue to monitor. ?Need for medication Per neurology- Blood pressure recommendations while in hospital 175/95-150/80. For the first month after hospital discharge, blood pressure recommendations 150 /90-130/80. Hyperlipidemia: -Lipid panel -Will need started on Statin therapy once oral intake is achieved Diabetes mellitus, her blood sugar upon admission is in the 300s: -ha1c of 14.6. Will need to discuss treatment options prior to discharge -Sliding insulin scale -BSG AC & HS Renal insufficiency, with creatinine upon entrance labs is 1.40: -Treat with IV NSS @ 100 ml/hr -Follow PRP Smoking: -Smoking cessation counselling once patient's status improves Code Status: -LEVEL I, FULL Dispo: -Patient from [place]- travels with who is a director religious education. -PT/OT/Speech evaluations needed. -Consult social work administrator for ?acute placement after discharge. Also, outpatient follow-up with PCP.
[2016-05-06 13:18] LABS: CKMB/CK RATIO 2.4 (0-3.0)
--- NOTE | 2016-05-06 13:41 | ECHOCARDIOGRAM REPORT ---
*NOTICE TO RECEIVING REPUBLICAN AGENCY This information is strictly Confidential and protected under [place] law. [place] law prohibits you from making any further disclosure of this information unless further disclosure is expressly permitted by the written consent of the person to whom it pertains or is authorized by law. A general authorization for the release of medical or other information is not sufficient for this purpose. Hospital accepts no responsibility if the information is made available to any other person, INCLUDING THE PATIENT. Interpretation Summary * Name: OLIVER BARRERA Study Date: 05/06/2016 06:22 AM BP: 173/103 mmHg * Patient Location: C.2T\S\S238\S\2 HR: 80 * : 1970 (M/d/yyyy) Gender: Female * Age: 45 yrs Ethnicity: CA Weight: 207 lb * Ordering Physician: William Castillo * Referring Physician: Self, Referred * Performed By: Denise Arechiga RCS * * Reason For Study: CEREBRAL ISCHEMIA / EMBOLUS * -- Conclusions -- * Left ventricular systolic function is normal. * No regional wall motion abnormalities noted. * Ejection Fraction = 60-65%. * Moderate to severe concentric left ventricular hypertrophy. * Injection of contrast documented no interatrial shunt. Procedure Details * A complete two-dimensional transthoracic echocardiogram was performed (2D, M-mode, Doppler and color flow Doppler). * A saline contrast injection was performed to assess for cardiac shunting. * The injection was performed through an intravenous line in the right arm. * The attending nurse who injected the saline contrast was MALICK TINSLEY RN. * A total of 20 cc of agitated saline was given. Left Ventricle * The left ventricular cavity is small. * Moderate to severe concentric left ventricular hypertrophy. * Ejection Fraction = 60-65%. * Left ventricular systolic function is normal. * No regional wall motion abnormalities noted. Right Ventricle * The right ventricle is not well visualized. * The right ventricular systolic function is normal as assessed by tricuspid annular plane systolic excursion (TAPSE) (normal >1.5 cm). Atria * The left atrial size is normal. * Right atrial size is normal. * Injection of contrast documented no interatrial shunt. Mitral Valve * The mitral valve is grossly normal. * There is no mitral valve stenosis. * Significant mitral regurgitation is absent. Tricuspid Valve * The tricuspid valve is not well visualized. * Significant tricuspid regurgitation is absent. Aortic Valve * The aortic valve is not well visualized. * The aortic valve opens well. * No hemodynamically significant valvular aortic stenosis. * There is no significant aortic regurgitation. Pulmonic Valve * The pulmonic valve is not well visualized. Great Vessels * The aortic root and proximal ascending aorta are normal sized. * The pulmonary is not well visualized. Pericardium/Pleural * There is no pericardial effusion. Great Vessels * IVC not well seen. MMode 2D Measurements and Calculations IVSd 1.9 cm IVSs 1.9 cm LVIDd 4.0 cm LVIDs 3.0 cm LVPWd 1.6 cm LVPWs 2.1 cm IVS/LVPW 1.2 FS 24.4 % EDV(Teich) 68.6 ml ESV(Teich) 35.0 ml EF(Teich) 49.0 % EDV(cubed) 62.4 ml ESV(cubed) 27.0 ml EF(cubed) 56.8 % % IVS thick -1.51 % % LVPW thick 31.5 % LV mass(C)d 302.7 grams LV mass(C)s 268.2 grams SV(Teich) 33.6 ml SV(cubed) 35.4 ml Ao root diam 3.0 cm Ao root area 7.0 cm\S\2 LA dimension 2.8 cm LA/Ao 0.92 LVOT diam 2.0 cm LVOT area 3.3 cm\S\2 LVAd ap4 35.9 cm\S\2 LVLd ap4 8.4 cm EDV(MOD-sp4) 123.2 ml EDV(sp4-el) 130.3 ml LVAs ap4 22.9 cm\S\2 LVLs ap4 6.8 cm ESV(MOD-sp4) 63.6 ml ESV(sp4-el) 65.4 ml EF(MOD-sp4) 48.4 % EF(sp4-el) 49.8 % LVAd ap2 37.7 cm\S\2 LVLd ap2 9.0 cm EDV(MOD-sp2) 130.3 ml EDV(sp2-el) 134.3 ml LVAs ap2 24.9 cm\S\2 LVLs ap2 6.9 cm ESV(MOD-sp2) 74.0 ml ESV(sp2-el) 76.2 ml EF(MOD-sp2) 43.2 % EF(sp2-el) 43.3 % LVLd %diff 6.2 % EDV(MOD-bp) 130.3 ml LVLs %diff 1.5 % ESV(MOD-bp) 68.9 ml EF(MOD-bp) 47.1 % SV(MOD-sp4) 59.7 ml SV(MOD-sp2) 56.3 ml SV(MOD-bp) 61.4 ml SV(sp4-el) 64.9 ml SV(sp2-el) 58.1 ml Doppler Measurements and Calculations MV E max juan 131.4 cm/sec MV P1/2t max juan 173.7 cm/sec MV P1/2t 49.9 msec MVA(P1/2t) 4.4 cm\S\2 MV dec slope 1020.0 cm/sec\S\2 MV dec time 0.13 sec Ao V2 max 132.5 cm/sec Ao max PG 7.0 mmHg Ao max PG (full) 5.1 mmHg BUD(V,A) 1.7 cm\S\2 BUD(V,D) 1.7 cm\S\2 LV V1 max PG 2.0 mmHg LV V1 max 69.8 cm/sec PA V2 max 119.4 cm/sec PA max PG 5.7 mmHg
[2016-05-06 14:09] LABS: BENZODIAZEPINE, URINE NEG (NEG); COCAINE,URINE NEG (NEG); PHENCYCLIDINE, URINE NEG (NEG)
[2016-05-06] MEDS: ASPIRIN 81 MG ECTAB PO SCH (15:57)
[2016-05-06] MEDS: INSULIN GLARGINE SOLOSTAR 100 UNITS/ML 3 ML PEN SC SCH (17:04)
[2016-05-06] MEDS: SODIUM CHLORIDE 0.9% 1000ML 1,000 ML IV SCH (19:34)
[2016-05-06] MEDS ORDERED: INSULIN GLARGINE SOLOSTAR 100 UNITS/ML 3 ML PEN SC SCH (21:00)
[2016-05-06] MEDS ORDERED: METOPROLOL TARTRATE 1 MG/ML VIAL ONE (23:48)
[2016-05-07] VITALS (13 sets, daily range): BP systolic 119–212; BP diastolic 81–108; PULSE 63–100; TEMP 36.8–37.2; O2SAT 91–99; BMI 34.4
[2016-05-07] MEDS: DILTIAZEM HCL 5 MG/ML 5 ML VIAL IV PRN ×2 (00:49→04:43)
[2016-05-07] MEDS: METOPROLOL TARTRATE 1 MG/ML VIAL IV. SCH ×3 (03:31→08:09)
[2016-05-07] MEDS: SODIUM CHLORIDE 0.9% 1000ML 1,000 ML IV SCH ×3 (03:33→15:02)
[2016-05-07 07:20] LABS: BASO % 0.2 %; BASO ABS # 0.02 K/uL (0-0.2); COMPLETE YES; EOS % 1.1 %; HEMATOCRIT 35.4 % (37-47); IG% 0.2 %; LYMPH % 9.2 %; LYMPH ABS # 1.08 K/uL (1.2-3.4); MEAN CELL VOLUME 81.6 fL (80-100); MEAN CORPUSCULAR HEMOGLOBIN 27.2 pg (25-34); MEAN CORPUSCULAR HGB CONC 33.3 g/dl (32-36); MEAN PLATELET VOLUME 9.9 fL (7.4-10.4); NEUT % 86.3 %; PLATELET COUNT 246 K/uL (130-400); RED BLOOD COUNT 4.34 M/uL (4.2-5.4); WHITE BLOOD COUNT 11.78 K/uL (4.8-10.8)
[2016-05-07 07:28] LABS: INR 0.9 (0.9-1.1); PARTIAL THROMBOPLASTIN RATIO 0.9; PROTHROMBIN TIME (PATIENT) 9.9 SECONDS (9.0-12.0)
[2016-05-07 07:48] LABS: BUN/CREATININE RATIO 18.8 (10-20); CALCIUM 7.8 mg/dl (8.5-10.1); CREATININE 1.2 mg/dl (0.60-1.20); MAGNESIUM 1.9 mg/dl (1.8-2.4); POTASSIUM 4.2 mmol/L (3.5-5.1)
[2016-05-07 07:58] LABS: BETA-HYDROXYBUTYRATE 8.59 mg/dL (0.2-2.81)
[2016-05-07] MEDS: ASPIRIN 81 MG ECTAB PO SCH (08:07)
[2016-05-07] MEDS: ATORVASTATIN 20 MG TAB PO SCH (08:09)
[2016-05-07] MEDS: INSULIN ASPART 100 UNITS/ML 3 ML PEN SC SCH ×4 (08:13→20:50)
[2016-05-07] MEDS: INSULIN GLARGINE SOLOSTAR 100 UNITS/ML 3 ML PEN SC SCH ×2 (08:14→20:50)
[2016-05-07] MEDS ORDERED: LISINOPRIL 20 MG TAB PO SCH (09:00)
--- NOTE | 2016-05-07 10:31 | Neurology Progress Notes ---
Neurology Progress Note Date of Service May 07, 2016. Subjective Did not say much today apart from one-word answers of "yes" or "no" Per Nursing, the patient was much more alert overnight, and her also left last night for a maida journey to [place] and has not yet returned. Has been drinking liquids on her own, and eats small finger foods but does not tolerate large amounts Has still been incontinent of urine in bed, but does not seem to notice Objective Date Time Temp Pulse Resp B/P Pulse Ox O2 Delivery O2 Flow Rate FiO2 05/07/16 08:09 178/104 05/07/16 08:00 Room Air 05/07/16 07:32 37.2 86 18 178/104 98 Nasal Cannula 05/07/16 07:06 36.8 63 18 119/81 97 Room Air 05/07/16 04:33 84 166/84 05/07/16 04:00 95 Room Air 05/07/16 03:31 100 212/103 05/07/16 03:23 37.0 100 20 212/103 92 Room Air 05/07/16 02:04 86 173/101 05/07/16 00:40 88 189/108 05/06/16 23:59 95 Room Air 05/06/16 23:53 99 186/112 05/06/16 23:21 37.4 101 20 186/112 96 Room Air 05/06/16 20:12 36.9 86 18 183/99 98 Room Air 05/06/16 20:00 95 Room Air 05/06/16 15:39 Room Air 05/06/16 15:34 37.1 85 16 180/95 95 Room Air 05/06/16 12:11 Room Air 05/06/16 11:16 36.4 84 20 183/107 97 Room Air Last 24 Hours Test 05/06/16 11:04 05/06/16 12:36 05/06/16 13:20 05/06/16 16:13 Bedside Glucose 324 mg/dl 246 mg/dl Total Creatine Kinase 25 U/L Creatine Kinase MB 0.6 ng/ml Creatine Kinase MB Ratio 2.4 Troponin I 0.017 ng/ml Urine Opiates Screen NEG Urine Methadone, Qualitative NEG Urine Barbiturates NEG Urine Phencyclidine (PCP) Level NEG Ur Amphetamine/Methamphetamine NEG MDMA (Ecstasy) Screen NEG Urine Benzodiazepines Screen NEG Urine Cocaine Metabolite NEG Urine Marijuana (THC) NEG Test 05/06/16 20:35 05/07/16 06:23 05/07/16 06:37 Bedside Glucose 174 mg/dl 355 mg/dl White Blood Count 11.78 K/uL Red Blood Count 4.34 M/uL Hemoglobin 11.8 g/dL Hematocrit 35.4 % Mean Corpuscular Volume 81.6 fL Mean Corpuscular Hemoglobin 27.2 pg Mean Corpuscular Hemoglobin Concent 33.3 g/dl Platelet Count 246 K/uL Mean Platelet Volume 9.9 fL Neutrophils (%) (Auto) 86.3 % Lymphocytes (%) (Auto) 9.2 % Monocytes (%) (Auto) 3.0 % Eosinophils (%) (Auto) 1.1 % Basophils (%) (Auto) 0.2 % Neutrophils # (Auto) 10.18 K/uL Lymphocytes # (Auto) 1.08 K/uL Monocytes # (Auto) 0.35 K/uL Eosinophils # (Auto) 0.13 K/uL Basophils # (Auto) 0.02 K/uL RDW Standard Deviation 40.6 fL RDW Coefficient of Variation 13.4 % Immature Granulocyte % (Auto) 0.2 % Immature Granulocyte # (Auto) 0.02 K/uL Prothrombin Time 9.9 SECONDS Prothromb Time International Ratio 0.9 Activated Partial Thromboplast Time 22.9 SECONDS Partial Thromboplastin Ratio 0.9 Sodium Level 145 mmol/L Potassium Level 4.2 mmol/L Chloride Level 115 mmol/L Carbon Dioxide Level 18 mmol/L Anion Gap 12.0 mmol/L Blood Urea Nitrogen 23 mg/dl Creatinine 1.20 mg/dl Est Creatinine Clear Calc Drug Dose 68.4 ml/min Estimated GFR () 64.1 Estimated GFR (Non- 55.3 BUN/Creatinine Ratio 18.8 Random Glucose 340 mg/dl Calcium Level 7.8 mg/dl Magnesium Level 1.9 mg/dl Total Bilirubin 0.3 mg/dl Direct Bilirubin 0.1 mg/dl Aspartate Amino Transf (AST/SGOT) 13 U/L Alanine Aminotransferase (ALT/SGPT) 22 U/L Alkaline Phosphatase 84 U/L Total Protein 6.7 gm/dl Albumin 2.8 gm/dl Beta-Hydroxybutyric Acid 8.59 mg/dL Imaging: ECHO: * -- Conclusions -- * Left ventricular systolic function is normal. * No regional wall motion abnormalities noted. * Ejection Fraction = 60-65%. * Moderate to severe concentric left ventricular hypertrophy. * Injection of contrast documented no interatrial shunt. Exam: General: Awake, alert, but non-verbal Pupils: Equal, reactive, midsize. CN: Would not comply with full exam. Has Right sided neglect. Mouth: Poor dentition. Dry tongue. CVS: RRR, HS normal no murmurs, rubs, gallops Resp: Clear to auscultation bilaterally Abd: Soft, nontender. Neuro: Would not participate with full neurological exam. Motor: seems weaker on left side, but would not comply with strength assessment. Sensation: intact bilaterally. Reflexes: 1+ in all modalities. Coordination: Would not participate with finger-nose. Did not assess gait. Extremities: No peripheral edema or tenderness. Current Inpatient Medications Medications (Trade) Dose Ordered Sig/Gus Route Start Time Stop Time Status Last Admin Dose Admin Ioversol (Optiray 320) 125 ml UD PRN IV 05/05/16 19:45 05/09/16 19:44 Atorvastatin Calcium (Lipitor Tab) 20 mg QAM PO 05/06/16 09:00 06/05/16 08:59 05/07/16 08:09 20 MG Miscellaneous Information 1 ea 1 ea UD PRN N/A 05/05/16 19:45 06/04/16 19:44 Sodium Chloride (Nss 1000ml) 1,000 ml @ 100 mls/hr Q10H IV 05/05/16 23:30 06/04/16 23:29 05/07/16 03:33 100 MLS/HR Ondansetron HCl 4 mg 4 mg Q6H PRN IV 05/05/16 19:45 06/04/16 19:44 05/06/16 21:03 4 MG Acetaminophen (Ofirmev Iv) 100 ml @ 400 mls/hr Q8H PRN IV 05/05/16 19:45 06/04/16 19:44 Diphenhydramine HCl (Benadryl Inj) 25 mg Q4H PRN IV 05/05/16 19:45 06/04/16 19:44 Insulin Aspart (novoLOG ASPART) SLIDING SCALE If C... ACHS SC 05/05/16 21:00 06/04/16 20:59 05/07/16 08:13 15 UNITS Glucose (Glucose 40% Gel) UD PRN PO 05/05/16 19:45 06/04/16 19:44 Glucose (Glucose Chew Tab) 1 tabs UD PRN PO 05/05/16 19:45 06/04/16 19:44 Dextrose (Dextrose 50% 50ML Syringe) 50 ml UD PRN IV 05/05/16 19:45 06/04/16 19:44 Glucagon 1 mg 1 mg UD PRN SQ 05/05/16 19:45 06/04/16 19:44 Pantoprazole Sodium/Syringe (Protonix Inj/ Syringe) 10 ml @ 5 mls/min DAILY@11 IV 05/06/16 11:00 06/05/16 10:59 05/06/16 11:10 5 MLS/MIN Gadopentetate Dimeglumine (Magnevist) 20 ml UD PRN IV 05/05/16 23:00 05/09/16 22:59 Aspirin (Ecotrin Tab) 81 mg QAM PO 05/07/16 09:00 06/06/16 08:59 05/07/16 08:07 81 MG Insulin Glargine (Lantus Solostar Pen) 8 unit BID SC 05/06/16 16:45 06/05/16 16:44 05/07/16 08:14 8 UNIT Diltiazem HCl (Cardizem Inj) 10 mg Q4H PRN IV 05/06/16 23:30 06/05/16 23:29 05/07/16 04:43 10 MG Lisinopril (Zestril Tab) 20 mg QAM PO 05/07/16 09:00 06/06/16 08:59 Metoprolol Tartrate (Lopressor Tab) 25 mg BID PO 05/07/16 09:00 06/06/16 08:59 Impression 45 yo F with previous TIAs & large R frontal lobe stroke, with new L parietal, occipital, and basal ganglia ischemic infarct. Modifiable risk factors include: smoking, poorly-controlled DM (HbA1c 14%), hyperlipidemia (triglycerides elevated) and potentially hypertension. She may have an underlying hypercoagulable state but investigating this would require her to follow up locally, which at this time it does not seem like she will do. Recommendations: 1. Continue with PO 81mg Aspirin daily and PO Moderate intensity statin 2. Aggressive physical, occupational, and speech therapy 3. Improved blood glucose control, Aim for HbA1c <7% 4. BP management: Agree with starting on regular anti-hypertensive for now, will need to be adjusted if followed up. For now, aim for 150/80 to 175/95, then in the first month, goal is 130/80-150/90, then from there onwrads, BP goal is 110/70-130/80. 5. Counselling for smoking cessation 6. Follow up seems to be an issue. Unclear social situation, and seems to have [employer] insurance. Would need rehab for speech and left sided weakness. 7. If patient does agree to follow up, would recommend hypercoagulable workup if not already completed at outside facility Thank you for allowing us to participate in the care of this patient. We will continue to follow. Neurology attending addendum: I personally supervised resident in the care of this patient. Verified history, pertinent physical findings, and agree with discussed assessment and plan. This is a 45-year-old female with what appears to be an embolic cerebral ischemic strokes in the left parietal, occipital, and basal ganglia with evidence of an old right frontal ischemic stroke in the right MCA and SOFY territories. Stroke etiology at this time is unknown, but considering presentation and age, concerned for hypercoagulable state. Patient does have known stroke risk factors of dyslipidemia, diabetes, and tobacco abuse. The patient denies being on any antiplatelets at the time of her strokes. Neurological deficits include encephalopathy, expressive aphasia, and old left hemiplegia. Hypercoagulable workup ordered and is pending. Will likely take several weeks to come back and results will need to be followed up as an outpatient. Since patient is not from this area, it'll be imperative that she follows up with her primary care and a neurologist as an outpatient. As an outpatient I would recommend a Holter monitor to rule out paroxysmal A. fib if hypercoagulable workup is unremarkable. Agree with aspirin 81 mg daily for stroke prevention. Recommend statin therapy for dyslipidemia Avoid dehydration and hypotension as this could extend her stroke. Thank you for allowing me to participate in this patient's care. No additional neurological recommendations at this time. If there is any questions or concerns , feel free to call/page me. -Marta Bender, DO Resident Tracking Resident Involvement: Resident Care Provided Care Provided: Adult Hospital Medicine (Neurology)
--- NOTE | 2016-05-07 10:34 | Hospitalist Progress Note ---
Hospitalist Progress Note Date of Service May 07, 2016. Subjective Pt evaluation today including: conversation w/ patient, physical exam, chart review, lab review, review of studies, review of inpatient medication list Voiding: incontinence Patient opens eyes in response to name. Quickly closes eyes and will not respond to questions. ROS cannot be obtained due to patient's status. Medications Current Inpatient Medications Medications (Trade) Dose Ordered Sig/Gsu Route Start Time Stop Time Status Last Admin Dose Admin Ioversol (Optiray 320) 125 ml UD PRN IV 05/05/16 19:45 05/09/16 19:44 Atorvastatin Calcium (Lipitor Tab) 20 mg QAM PO 05/06/16 09:00 06/05/16 08:59 05/07/16 08:09 20 MG Miscellaneous Information 1 ea 1 ea UD PRN N/A 05/05/16 19:45 06/04/16 19:44 Sodium Chloride (Nss 1000ml) 1,000 ml @ 100 mls/hr Q10H IV 05/05/16 23:30 06/04/16 23:29 05/07/16 03:33 100 MLS/HR Ondansetron HCl 4 mg 4 mg Q6H PRN IV 05/05/16 19:45 06/04/16 19:44 05/06/16 21:03 4 MG Acetaminophen (Ofirmev Iv) 100 ml @ 400 mls/hr Q8H PRN IV 05/05/16 19:45 06/04/16 19:44 Diphenhydramine HCl (Benadryl Inj) 25 mg Q4H PRN IV 05/05/16 19:45 06/04/16 19:44 Insulin Aspart (novoLOG ASPART) SLIDING SCALE If C... ACHS SC 05/05/16 21:00 06/04/16 20:59 05/07/16 08:13 15 UNITS Glucose (Glucose 40% Gel) UD PRN PO 05/05/16 19:45 06/04/16 19:44 Glucose (Glucose Chew Tab) 1 tabs UD PRN PO 05/05/16 19:45 06/04/16 19:44 Dextrose (Dextrose 50% 50ML Syringe) 50 ml UD PRN IV 05/05/16 19:45 06/04/16 19:44 Glucagon 1 mg 1 mg UD PRN SQ 05/05/16 19:45 06/04/16 19:44 Pantoprazole Sodium/Syringe (Protonix Inj/ Syringe) 10 ml @ 5 mls/min DAILY@11 IV 05/06/16 11:00 06/05/16 10:59 05/06/16 11:10 5 MLS/MIN Gadopentetate Dimeglumine (Magnevist) 20 ml UD PRN IV 05/05/16 23:00 05/09/16 22:59 Aspirin (Ecotrin Tab) 81 mg QAM PO 05/07/16 09:00 06/06/16 08:59 05/07/16 08:07 81 MG Insulin Glargine (Lantus Solostar Pen) 8 unit BID SC 05/06/16 16:45 06/05/16 16:44 05/07/16 08:14 8 UNIT Diltiazem HCl (Cardizem Inj) 10 mg Q4H PRN IV 05/06/16 23:30 06/05/16 23:29 05/07/16 04:43 10 MG Lisinopril (Zestril Tab) 20 mg QAM PO 05/07/16 09:00 06/06/16 08:59 Metoprolol Tartrate (Lopressor Tab) 25 mg BID PO 05/07/16 09:00 06/06/16 08:59 Objective Vital Signs Date Time Temp Pulse Resp B/P Pulse Ox O2 Delivery O2 Flow Rate FiO2 05/07/16 08:09 178/104 05/07/16 07:32 37.2 86 18 178/104 98 Nasal Cannula 05/07/16 07:06 36.8 63 18 119/81 97 Room Air 05/07/16 04:33 84 166/84 05/07/16 04:00 95 Room Air 05/07/16 03:31 100 212/103 05/07/16 03:23 37.0 100 20 212/103 92 Room Air 05/07/16 02:04 86 173/101 05/07/16 00:40 88 189/108 05/06/16 23:59 95 Room Air 05/06/16 23:53 99 186/112 05/06/16 23:21 37.4 101 20 186/112 96 Room Air 05/06/16 20:12 36.9 86 18 183/99 98 Room Air 05/06/16 20:00 95 Room Air 05/06/16 15:39 Room Air 05/06/16 15:34 37.1 85 16 180/95 95 Room Air 05/06/16 12:11 Room Air 05/06/16 11:16 36.4 84 20 183/107 97 Room Air Physical Exam General Appearance: no apparent distress, + obese Eyes: PERRL ENT: hearing grossly normal Neck: supple Respiratory/Chest: lungs clear, no respiratory distress, no accessory muscle use Cardiovascular: regular rate, rhythm, no edema Abdomen: normal bowel sounds, non tender, soft Extremities: no pedal edema Neurologic/Psychiatric: + 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 ) Skin: normal color, warm/dry, no rash Laboratory Results Last 24 Hours Test 05/06/16 10:10 05/06/16 11:04 05/06/16 12:36 05/06/16 13:20 Total Creatine Kinase 22 U/L 25 U/L Creatine Kinase MB 0.8 ng/ml 0.6 ng/ml Creatine Kinase MB Ratio 3.6 2.4 Troponin I < 0.015 ng/ml 0.017 ng/ml Bedside Glucose 324 mg/dl Urine Opiates Screen NEG Urine Methadone, Qualitative NEG Urine Barbiturates NEG Urine Phencyclidine (PCP) Level NEG Ur Amphetamine/Methamphetamine NEG MDMA (Ecstasy) Screen NEG Urine Benzodiazepines Screen NEG Urine Cocaine Metabolite NEG Urine Marijuana (THC) NEG Test 05/06/16 16:13 05/06/16 20:35 05/07/16 06:23 05/07/16 06:37 Bedside Glucose 246 mg/dl 174 mg/dl 355 mg/dl White Blood Count 11.78 K/uL Red Blood Count 4.34 M/uL Hemoglobin 11.8 g/dL Hematocrit 35.4 % Mean Corpuscular Volume 81.6 fL Mean Corpuscular Hemoglobin 27.2 pg Mean Corpuscular Hemoglobin Concent 33.3 g/dl Platelet Count 246 K/uL Mean Platelet Volume 9.9 fL Neutrophils (%) (Auto) 86.3 % Lymphocytes (%) (Auto) 9.2 % Monocytes (%) (Auto) 3.0 % Eosinophils (%) (Auto) 1.1 % Basophils (%) (Auto) 0.2 % Neutrophils # (Auto) 10.18 K/uL Lymphocytes # (Auto) 1.08 K/uL Monocytes # (Auto) 0.35 K/uL Eosinophils # (Auto) 0.13 K/uL Basophils # (Auto) 0.02 K/uL RDW Standard Deviation 40.6 fL RDW Coefficient of Variation 13.4 % Immature Granulocyte % (Auto) 0.2 % Immature Granulocyte # (Auto) 0.02 K/uL Prothrombin Time 9.9 SECONDS Prothromb Time International Ratio 0.9 Activated Partial Thromboplast Time 22.9 SECONDS Partial Thromboplastin Ratio 0.9 Sodium Level 145 mmol/L Potassium Level 4.2 mmol/L Chloride Level 115 mmol/L Carbon Dioxide Level 18 mmol/L Anion Gap 12.0 mmol/L Blood Urea Nitrogen 23 mg/dl Creatinine 1.20 mg/dl Est Creatinine Clear Calc Drug Dose 68.4 ml/min Estimated GFR () 64.1 Estimated GFR (Non- 55.3 BUN/Creatinine Ratio 18.8 Random Glucose 340 mg/dl Calcium Level 7.8 mg/dl Magnesium Level 1.9 mg/dl Total Bilirubin 0.3 mg/dl Direct Bilirubin 0.1 mg/dl Aspartate Amino Transf (AST/SGOT) 13 U/L Alanine Aminotransferase (ALT/SGPT) 22 U/L Alkaline Phosphatase 84 U/L Total Protein 6.7 gm/dl Albumin 2.8 gm/dl Beta-Hydroxybutyric Acid 8.59 mg/dL Assessment and Plan The patient is a 45 old female who is brought to the emergency department due to altered mental status. She has found in the back of her 's truck and a poorly urine. 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 She reportedly was in an unknown hospital yesterday being assessed for stroke but then signed out AMA, and would not telemetry in the setting [facility]. EMS reports that when they found her left arm was rigid and reportedly has been that way for at least a week. The patient's [id number]-ols reports that she has history of TIAs. the patient herself is only able to answer yes or no to questions. She was given 0.4 mg of Narcan en route to the hospital with no change in status. Her blood sugar was 325 when tested by EMS at the scene. 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 * No regional wall motion abnormalities noted. * Ejection Fraction = 60-65%. * Moderate to severe concentric left ventricular hypertrophy. * Injection of contrast documented no interatrial shunt. -Failed her swallowing study. Consult speech therapy, appreciate recommendations -- Evaluated by speech, passed swallow assessment (05/06) -- Recommend speech therapy at acute rehab upon discharge -Aspirin via rectal suppository until oral intake is achieved -- Tolerating oral intake. Start ASA 81 mg PO QAM (05/06) -Consult neurology, appreciate recommendations --Hypercoagulable workup, will need outpatient follow-up. --If Hypercoagulable workup is negative, recommend Holter monitor to evaluate paroxysmal a.fib --Toxicology screen negative Permissive hypertension: -Continue to monitor. ?Need for medication --Patient was hypertensive at 212/103 overnight. IV Lopressor and Cardizem ordered. Will initiate Metoprolol 25 mg PO BID and Lisinopril 20 mg PO QAM. () Per neurology- Blood pressure recommendations while in hospital 175/95-150/80. For the first month after hospital discharge, blood pressure recommendations 150 /90-130/80. Hyperlipidemia: -Lipid panel reviewed -Start Atorvastatin 20 mg PO QAM Diabetes mellitus, her blood sugar upon admission is in the 300s: -ha1c of 14.6 -Sliding insulin scale -BSG AC & HS -Started patient on Lantus 8 units SQ BID on 05/06. Increased to 12 units BID. Continue to titrate as needed. -Patient will need diabetic counselling once more receptive to instruction/ family present Renal insufficiency, with creatinine upon entrance labs is 1.40: -Treat with IV NSS @ 100 ml/hr -Follow PRP -- Cr. improved 1.2 (05/07) Smoking: -Smoking cessation counselling once patient's status improves Code Status: -LEVEL I, FULL Dispo: -Patient from [place]- travels with who is a sap abap developer. -PT recommends home with family supervision/assistance -Consult aids social worker- patient will need outpatient follow-up. ?who is picking patient up. I spoke with sister, Coleen, on the phone. She thought patient's was to return to the hospital last night (05/06) from delivering his truck load in [place]. He has not returned yet and no one has been in contact with him. Coleen was told patient would be going to rehab here locally. We discussed PT recommendations to return home with assistance- she is unable to pick patient up. She would like patient to go to acute placement here. Will try to follow-up with .
[2016-05-07] MEDS: PANTOprazole INJ 40 MG in SYRINGE 0 ML IV SCH (11:00)
[2016-05-07] MEDS: METOPROLOL TARTRATE 25 MG TAB PO SCH ×2 (15:02→20:49)
[2016-05-07] MEDS ORDERED: NURSING VERBAL MED ORDER ONE (19:15)
[2016-05-08 02:40] VITALS: BP 169/101; PULSE 76; TEMP 37; O2SAT 96
[2016-05-08 06:31] LABS: BASO % 0.1 %; BASO ABS # 0.01 K/uL (0-0.2); COMPLETE YES; EOS % 2.9 %; IG% 0.4 %; LYMPH % 32.3 %; MEAN CELL VOLUME 81.7 fL (80-100); MEAN CORPUSCULAR HEMOGLOBIN 26.9 pg (25-34); MEAN CORPUSCULAR HGB CONC 32.9 g/dl (32-36); MEAN PLATELET VOLUME 9.5 fL (7.4-10.4); MONO % 8.4 %; NEUT % 55.9 %; PLATELET COUNT 237 K/uL (130-400); RED BLOOD COUNT 4.16 M/uL (4.2-5.4); WHITE BLOOD COUNT 8.36 K/uL (4.8-10.8)
[2016-05-08 06:38] LABS: PARTIAL THROMBOPLASTIN RATIO 0.8; PROTHROMBIN TIME (PATIENT) 10.2 SECONDS (9.0-12.0)
[2016-05-08 06:56] LABS: ALT/SGPT 23 U/L (12-78); AST/SGOT 13 U/L (15-37); BLOOD UREA NITROGEN 17 mg/dl (7-18); BUN/CREATININE RATIO 14.5 (10-20); CALCIUM 8.1 mg/dl (8.5-10.1); CARBON DIOXIDE 23 mmol/L (21-32); CHLORIDE 119 mmol/L (98-107); GLUCOSE 161 mg/dl (70-99); POTASSIUM 3.7 mmol/L (3.5-5.1); SODIUM 150 mmol/L (136-145)
[2016-05-08 06:59] LABS: ALKALINE PHOSPHATASE 85 U/L (45-117)
[2016-05-08] MEDS: INSULIN ASPART 100 UNITS/ML 3 ML PEN SC SCH ×4 (07:00→21:06)
[2016-05-08 07:19] VITALS: BP_SYST 183; BP_SYST 194; BP_DIAS 108; BP_DIAS 109; PULSE 80; TEMP 37.2; O2SAT 97
[2016-05-08] MEDS ORDERED: DEXTROSE 5% 1000ML 1,000 ML IV SCH (08:15)
[2016-05-08] MEDS: ATORVASTATIN 20 MG TAB PO SCH (10:15)
[2016-05-08] MEDS: ASPIRIN 81 MG ECTAB PO SCH (10:15)
[2016-05-08] MEDS: INSULIN GLARGINE SOLOSTAR 100 UNITS/ML 3 ML PEN SC SCH ×2 (10:15→21:07)
[2016-05-08] MEDS: METOPROLOL TARTRATE 25 MG TAB PO SCH ×2 (10:16→21:09)
[2016-05-08] MEDS: LISINOPRIL 20 MG TAB PO SCH (10:17)
[2016-05-08 10:48] VITALS: BP 177/93; PULSE 81; TEMP 36.7; O2SAT 97
[2016-05-08] MEDS: PANTOprazole INJ 40 MG in SYRINGE 0 ML IV SCH (11:42)
--- NOTE | 2016-05-08 12:15 | Progress Note ---
Subjective Date of Service: May 08, 2016. Subjective Pt evaluation today including: conversation w/ patient, conversation w/ family , physical exam, lab review, review of inpatient medication list Pain: no pain PO Intake: adequate Voiding: no voiding problems patient doing well today, eating better, speaking more when in the room BP again elevated, making adjustments to meds sugars better controlled on lantus 12 units discussed need for rehab and patient and and sister agree d/w CM, making [facility] referrals Problem List Medical Problems: (1) Hyperglycemia Status: Acute (2) Hypertension Status: Acute Review of Systems Constitutional: + fatigue, + weakness Neurologic: + balance problems, + memory loss, + problem reported (expressive aphasia), + weakness All Other Systems: Reviewed and Negative Medications Current Inpatient Medications Medications (Trade) Dose Ordered Sig/Gus Route Start Time Stop Time Status Last Admin Dose Admin Ioversol (Optiray 320) 125 ml UD PRN IV 05/05/16 19:45 05/09/16 19:44 Atorvastatin Calcium (Lipitor Tab) 20 mg QAM PO 05/06/16 09:00 06/05/16 08:59 05/08/16 10:15 20 MG Miscellaneous Information (Pharmacist Discharge Med Rec Consult) 1 ea UD PRN N/A 05/05/16 19:45 06/04/16 19:44 Ondansetron HCl 4 mg 4 mg Q6H PRN IV 05/05/16 19:45 06/04/16 19:44 05/06/16 21:03 4 MG Acetaminophen (Ofirmev Iv) 100 ml @ 400 mls/hr Q8H PRN IV 05/05/16 19:45 06/04/16 19:44 05/07/16 21:30 400 MLS/HR Diphenhydramine HCl (Benadryl Inj) 25 mg Q4H PRN IV 05/05/16 19:45 06/04/16 19:44 Insulin Aspart (novoLOG ASPART) SLIDING SCALE If C... ACHS SC 05/05/16 21:00 06/04/16 20:59 05/07/16 20:50 4 UNITS Glucose (Glucose 40% Gel) UD PRN PO 05/05/16 19:45 06/04/16 19:44 Glucose (Glucose Chew Tab) 1 tabs UD PRN PO 05/05/16 19:45 06/04/16 19:44 Dextrose (Dextrose 50% 50ML Syringe) 50 ml UD PRN IV 05/05/16 19:45 06/04/16 19:44 Glucagon 1 mg 1 mg UD PRN SQ 05/05/16 19:45 06/04/16 19:44 Pantoprazole Sodium/Syringe (Protonix Inj/ Syringe) 10 ml @ 5 mls/min DAILY@11 IV 05/06/16 11:00 06/05/16 10:59 05/07/16 11:00 5 MLS/MIN Gadopentetate Dimeglumine (Magnevist) 20 ml UD PRN IV 05/05/16 23:00 05/09/16 22:59 Aspirin (Ecotrin Tab) 81 mg QAM PO 05/07/16 09:00 06/06/16 08:59 05/08/16 10:15 81 MG Insulin Glargine (Lantus Solostar Pen) 12 unit BID SC 05/07/16 21:00 06/06/16 20:59 05/08/16 10:15 12 UNIT Lisinopril (Zestril Tab) 40 mg QAM PO 05/08/16 09:00 06/07/16 08:59 05/08/16 10:17 40 MG Metoprolol Tartrate 50 mg 50 mg BID PO 05/08/16 09:00 06/07/16 08:59 05/08/16 10:16 50 MG Dextrose (D5W 1000ml) 1,000 ml @ 150 mls/hr Q6H40M IV 05/08/16 08:15 05/08/16 14:54 Objective Vital Signs Date Time Temp Pulse Resp B/P Pulse Ox O2 Delivery O2 Flow Rate FiO2 05/08/16 08:00 Room Air 05/08/16 07:19 37.2 80 18 194/109 97 Room Air 183/108 05/08/16 04:00 Room Air 05/08/16 02:40 37.0 76 18 169/101 96 Room Air 05/07/16 23:59 Room Air 05/07/16 23:03 37.1 79 18 176/108 99 Room Air 05/07/16 20:00 Room Air 05/07/16 19:43 36.9 91 18 181/103 98 Room Air 05/07/16 16:49 36.9 95 16 195/106 91 Room Air 05/07/16 16:42 96 Room Air 05/07/16 12:19 96 Room Air Physical Exam General Appearance: WD/WN, no apparent distress Neck: supple, no adenopathy, no JVD, trachea midline Respiratory/Chest: chest non-tender, lungs clear, normal breath sounds, no respiratory distress, no accessory muscle use Cardiovascular: regular rate, rhythm, no edema, no gallop, no JVD, no murmur Abdomen: normal bowel sounds, non tender, soft, no organomegaly Extremities: normal range of motion, non-tender, normal inspection, no pedal edema, no calf tenderness 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, no motor/sensory deficits, alert, normal mood/affect, oriented x 3 Skin: normal color, warm/dry, no rash Lymphatic: no adenopathy Laboratory Results Last 24 Hours Test 05/07/16 16:00 05/07/16 20:05 05/08/16 05:59 05/08/16 06:30 Bedside Glucose 258 mg/dl 203 mg/dl 155 mg/dl White Blood Count 8.36 K/uL Red Blood Count 4.16 M/uL Hemoglobin 11.2 g/dL Hematocrit 34.0 % Mean Corpuscular Volume 81.7 fL Mean Corpuscular Hemoglobin 26.9 pg Mean Corpuscular Hemoglobin Concent 32.9 g/dl Platelet Count 237 K/uL Mean Platelet Volume 9.5 fL Neutrophils (%) (Auto) 55.9 % Lymphocytes (%) (Auto) 32.3 % Monocytes (%) (Auto) 8.4 % Eosinophils (%) (Auto) 2.9 % Basophils (%) (Auto) 0.1 % Neutrophils # (Auto) 4.68 K/uL Lymphocytes # (Auto) 2.70 K/uL Monocytes # (Auto) 0.70 K/uL Eosinophils # (Auto) 0.24 K/uL Basophils # (Auto) 0.01 K/uL RDW Standard Deviation 41.1 fL RDW Coefficient of Variation 13.7 % Immature Granulocyte % (Auto) 0.4 % Immature Granulocyte # (Auto) 0.03 K/uL Prothrombin Time 10.2 SECONDS Prothromb Time International Ratio 1.0 Activated Partial Thromboplast Time 21.5 SECONDS Partial Thromboplastin Ratio 0.8 Sodium Level 150 mmol/L Potassium Level 3.7 mmol/L Chloride Level 119 mmol/L Carbon Dioxide Level 23 mmol/L Anion Gap 8.0 mmol/L Blood Urea Nitrogen 17 mg/dl Creatinine 1.20 mg/dl Est Creatinine Clear Calc Drug Dose 67.7 ml/min Estimated GFR () 64.1 Estimated GFR (Non- 55.3 BUN/Creatinine Ratio 14.5 Random Glucose 161 mg/dl Calcium Level 8.1 mg/dl Magnesium Level 2.0 mg/dl Total Bilirubin 0.2 mg/dl Direct Bilirubin < 0.1 mg/dl Aspartate Amino Transf (AST/SGOT) 13 U/L Alanine Aminotransferase (ALT/SGPT) 23 U/L Alkaline Phosphatase 85 U/L Total Protein 6.8 gm/dl Albumin 2.9 gm/dl Test 05/08/16 11:19 Bedside Glucose 220 mg/dl Assessment and Plan The patient is a 45 old female who is brought to the emergency department due to altered mental status. She has found in the back of her 's truck and a poor historian. 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 She reportedly was in an unknown hospital yesterday being assessed for stroke but then signed out AMA, and would not telemetry in the setting tonight. EMS reports that when they found her left arm was rigid and reportedly has been that way for at least a week. The patient's [id number] reports that she has history of TIAs. the patient herself is only able to answer yes or no to questions. She was given 0.4 mg of Narcan en route to the hospital with no change in status. Her blood sugar was 325 when tested by EMS at the scene. 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, greatest in the left occipital and parietal lobes and left basal ganglia, with unchanged encephalomalacia in the right frontal lobe from a prior infarct: no carotid stenosis, echo normal without PFO started on Lipitor 20mg daily, aspirin 81mg daily, permissive hypertension initially hypercoagulable work up sent by neurology since she is younger patient with at least two strokes now, will need follow up plan for d/c to [facility] once medically stable, CM making referrals cleared for PO intake keep on monitor to r/o paroxysmal atrial fibrillation - can now transfer to [facility] - HTN: BP continues to be elevated, started on Lisinopril 20mg daily and Lopressor 25mg BID yesterday but still high will increase Lisinopril to 40mg daily and Lopressor to 50mg BID - DM: very poor control with HbA1c of 14, started on Lantus, dose increased to 12 units BID, Novolog coverage, Diabetic diet sugars better today - Hypernatremia: stopped NSS yesterday, patient drinking free water, given 1L of D5W, repeat labs tomorrow - Renal insufficiency: initially Cr was 1.4, now 1.2 - Tobacco abuse: patient counseled on importance of quitting and further stroke prevention Code Status: -LEVEL I, FULL Dispo: -Patient from [place]- travels with who is a band tumbler. - plan to d/c to [facility] for acute rehab and will be able to pick her up whenever she is done and cleared to return home - likely read to go to rehab tomorrow
[2016-05-08 14:14] VITALS: Ht 165.1 cm; Wt 91.9 kg
[2016-05-08 14:56] VITALS: BP 161/85; PULSE 71; TEMP 37.2; O2SAT 100
[2016-05-09 00:16] VITALS: BP 163/86; PULSE 79; TEMP 37.8; O2SAT 98
[2016-05-09] MEDS: INSULIN ASPART 100 UNITS/ML 3 ML PEN SC SCH ×4 (06:30→21:24)
[2016-05-09 07:10] VITALS: BP_SYST 194; BP_SYST 212; BP_DIAS 103; BP_DIAS 117; PULSE 102; TEMP 36.9; O2SAT 95
[2016-05-09] MEDS: ATORVASTATIN 20 MG TAB PO SCH (07:35)
[2016-05-09] MEDS: LISINOPRIL 20 MG TAB PO SCH (07:35)
[2016-05-09] MEDS: ASPIRIN 81 MG ECTAB PO SCH (07:35)
[2016-05-09] MEDS: METOPROLOL TARTRATE 25 MG TAB PO SCH (07:36)
[2016-05-09] MEDS ORDERED: METOPROLOL TARTRATE 50 MG TAB PO STA (08:53)
[2016-05-09] MEDS: INSULIN GLARGINE SOLOSTAR 100 UNITS/ML 3 ML PEN SC SCH ×2 (09:08→21:23)
[2016-05-09 09:12] VITALS: BP 156/91; PULSE 80; TEMP 37
[2016-05-09 09:16] LABS: BUN/CREATININE RATIO 11.7 (10-20); CALCIUM 8.3 mg/dl (8.5-10.1); CREATININE 1.2 mg/dl (0.60-1.20); POTASSIUM 3.4 mmol/L (3.5-5.1)
[2016-05-09] MEDS: PANTOprazole SOD 40 MG TAB PO SCH (10:23)
[2016-05-09] MEDS ORDERED: POTASSIUM CHLORIDE 20 MEQ TABCR PO ONE (10:30)
--- NOTE | 2016-05-09 13:19 | Hospitalist Progress Note ---
Hospitalist Progress Note Date of Service May 09, 2016. Subjective Pt evaluation today including: conversation w/ patient, physical exam, chart review, lab review, review of inpatient medication list Patient opens eyes to name. Quickly closes eyes and turns away. ROS unobtainable due to mental status. Medications Current Inpatient Medications Medications (Trade) Dose Ordered Sig/Gus Route Start Time Stop Time Status Last Admin Dose Admin Ioversol (Optiray 320) 125 ml UD PRN IV 05/05/16 19:45 05/09/16 19:44 Atorvastatin Calcium (Lipitor Tab) 20 mg QAM PO 05/06/16 09:00 06/05/16 08:59 05/09/16 07:35 20 MG Miscellaneous Information (Pharmacist Discharge Med Rec Consult) 1 ea UD PRN N/A 05/05/16 19:45 06/04/16 19:44 Ondansetron HCl 4 mg 4 mg Q6H PRN IV 05/05/16 19:45 06/04/16 19:44 05/06/16 21:03 4 MG Acetaminophen (Ofirmev Iv) 100 ml @ 400 mls/hr Q8H PRN IV 05/05/16 19:45 06/04/16 19:44 05/07/16 21:30 400 MLS/HR Diphenhydramine HCl (Benadryl Inj) 25 mg Q4H PRN IV 05/05/16 19:45 06/04/16 19:44 Insulin Aspart (novoLOG ASPART) SLIDING SCALE If C... ACHS SC 05/05/16 21:00 06/04/16 20:59 05/08/16 21:06 1 UNITS Glucose (Glucose 40% Gel) UD PRN PO 05/05/16 19:45 06/04/16 19:44 Glucose (Glucose Chew Tab) 1 tabs UD PRN PO 05/05/16 19:45 06/04/16 19:44 Dextrose (Dextrose 50% 50ML Syringe) 50 ml UD PRN IV 05/05/16 19:45 06/04/16 19:44 Glucagon (Glucagon Inj) 1 mg UD PRN SQ 05/05/16 19:45 06/04/16 19:44 Gadopentetate Dimeglumine (Magnevist) 20 ml UD PRN IV 05/05/16 23:00 05/09/16 22:59 Aspirin (Ecotrin Tab) 81 mg QAM PO 05/07/16 09:00 06/06/16 08:59 05/09/16 07:35 81 MG Insulin Glargine (Lantus Solostar Pen) 12 unit BID SC 05/07/16 21:00 06/06/16 20:59 05/09/16 09:08 12 UNIT Lisinopril (Zestril Tab) 40 mg QAM PO 05/08/16 09:00 06/07/16 08:59 05/09/16 07:35 40 MG Pantoprazole Sodium (Protonix Tab) 40 mg DAILY@1100 PO 05/09/16 11:00 06/08/16 10:59 05/09/16 10:23 40 MG Metoprolol Tartrate (Lopressor Tab) 100 mg BID PO 05/09/16 20:00 06/08/16 19:59 Objective Vital Signs Date Time Temp Pulse Resp B/P Pulse Ox O2 Delivery O2 Flow Rate FiO2 05/09/16 09:12 37.0 80 20 156/91 05/09/16 08:00 Room Air 05/09/16 07:10 36.9 102 20 212/117 95 Room Air 194/103 05/09/16 00:16 37.8 79 20 163/86 98 Room Air 05/09/16 00:00 Room Air 05/08/16 16:20 Room Air 05/08/16 14:56 37.2 71 18 161/85 100 Room Air Physical Exam General Appearance: no apparent distress Eyes: PERRL ENT: hearing grossly normal Neck: supple Respiratory/Chest: lungs clear, no respiratory distress, no accessory muscle use Cardiovascular: regular rate, rhythm, no edema Abdomen: normal bowel sounds, non tender, soft Extremities: no pedal edema, no calf tenderness Neurologic/Psychiatric: alert, + pertinent finding (Does not participate in physical exam. Quickly shuts eyes/turns away ) Skin: normal color, warm/dry, no rash Laboratory Results Last 24 Hours Test 05/08/16 16:56 05/08/16 20:02 05/09/16 07:45 05/09/16 08:35 Bedside Glucose 190 mg/dl 157 mg/dl 134 mg/dl Sodium Level 143 mmol/L Potassium Level 3.4 mmol/L Chloride Level 113 mmol/L Carbon Dioxide Level 20 mmol/L Anion Gap 10.0 mmol/L Blood Urea Nitrogen 14 mg/dl Creatinine 1.20 mg/dl Est Creatinine Clear Calc Drug Dose 67.7 ml/min Estimated GFR () 64.1 Estimated GFR (Non- 55.3 BUN/Creatinine Ratio 11.7 Random Glucose 136 mg/dl Calcium Level 8.3 mg/dl Test 05/09/16 11:44 Bedside Glucose 144 mg/dl Assessment and Plan The patient is a 45 old female who is brought to the emergency department due to altered mental status. She has found in the back of her 's truck and a poorly urine. 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 She reportedly was in an unknown hospital yesterday being assessed for stroke but then signed out AMA, and would not telemetry in the setting tonight. EMS reports that when they found her left arm was rigid and reportedly has been that way for at least a week. The patient's [id number] reports that she has history of TIAs. the patient herself is only able to answer yes or no to questions. She was given 0.4 mg of Narcan en route to the hospital with no change in status. Her blood sugar was 325 when tested by EMS at the scene. 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 * No regional wall motion abnormalities noted. * Ejection Fraction = 60-65%. * Moderate to severe concentric left ventricular hypertrophy. * Injection of contrast documented no interatrial shunt. -Failed her swallowing study. Consult speech therapy, appreciate recommendations -- Evaluated by speech, passed swallow assessment (05/06) -- Recommend speech therapy at acute rehab upon discharge -- Dental soft diet, finger foods, Aspiration precautions, Straws OK, Will need set up assistance. Alternate solids and liquids. Monitor for oral pocketing and oral care after meals. Slow rate. -Aspirin via rectal suppository until oral intake is achieved -- Tolerating oral intake. Start ASA 81 mg PO QAM (05/06) -Consult neurology, appreciate recommendations --Hypercoagulable workup, will need outpatient follow-up. --If Hypercoagulable workup is negative, recommend Holter monitor to evaluate paroxysmal a.fib --Toxicology screen negative Permissive hypertension: -Continue to monitor. ?Need for medication --Patient was hypertensive at 212/103 overnight. IV Lopressor and Cardizem ordered. Will initiate Metoprolol 25 mg PO BID and Lisinopril 20 mg PO QAM. () --Increased Metoprolol to 50 mg BID and Lisinopril to 40 mg daily. (05/08) --Increased Metoprolol to 100 mg PO BID (05/09) Per neurology- Blood pressure recommendations while in hospital 175/95-150/80. For the first month after hospital discharge, blood pressure recommendations 150 /90-130/80. Hyperlipidemia: -Lipid panel reviewed -Start Atorvastatin 20 mg PO QAM Diabetes mellitus, her blood sugar upon admission is in the 300s: -ha1c of 14.6 -Sliding insulin scale -BSG AC & HS -Started patient on Lantus 8 units SQ BID on 05/06. Increased to 12 units BID. Continue to titrate as needed. -Diabetic counselling Hypokalemia: -Potassium on 3.4 on 05/09. Given 20 mEq KCL now. Continue to monitor Renal insufficiency, with creatinine upon entrance labs is 1.40: -Treat with IV NSS @ 100 ml/hr -Follow PRP -- Cr. improved 1.2 (05/07) Smoking: -Smoking cessation counselling Code Status: -LEVEL I, FULL Dispo: -Pending [facility] approval.
[2016-05-09 16:00] VITALS: BP 176/102; PULSE 78; TEMP 36.8; O2SAT 95
[2016-05-09 19:54] LABS: ANTITHROMBINIII ACTIVITY** 108 % activity (80-120); B2 GLYCOPROTEIN IGA <9 SAU (<=20); B2 GLYCOPROTEIN IGG <9 SGU (<=20); B2 GLYCOPROTEIN IGM <9 SMU (<=20); LUPUS ANTICOAGULANT** TC36573X Negative (Negative); PROTEIN C ACTIVITY** TC 1777X >200 % (70-180); PROTEIN S ACT(FUNCT)**1779X 90 % (60-140)
[2016-05-09] MEDS: METOPROLOL TARTRATE 100 MG TAB PO SCH ×3 (21:25→21:53)
[2016-05-09 21:26] VITALS: BP 156/85; PULSE 78
[2016-05-10] VITALS: O2SAT 95
[2016-05-10 07:29] VITALS: BP 149/88; PULSE 68; TEMP 36.6; O2SAT 97
[2016-05-10] MEDS: ASPIRIN 81 MG ECTAB PO SCH (08:21)
[2016-05-10] MEDS: LISINOPRIL 20 MG TAB PO SCH (08:21)
[2016-05-10] MEDS: ATORVASTATIN 20 MG TAB PO SCH (08:21)
[2016-05-10] MEDS: METOPROLOL TARTRATE 100 MG TAB PO SCH (08:22)
--- NOTE | 2016-05-10 08:52 | Hospitalist Progress Note ---
Hospitalist Progress Note Date of Service May 10, 2016. Subjective Pt evaluation today including: conversation w/ patient, physical exam, chart review, lab review, conversation w/ natural remedy consultant Voiding: incontinence Patient remains nonverbal. Easily aroused. Unable to obtain ROS due to patient' s mentation. Medications Current Inpatient Medications Medications (Trade) Dose Ordered Sig/Gus Route Start Time Stop Time Status Last Admin Dose Admin Atorvastatin Calcium (Lipitor Tab) 20 mg QAM PO 05/06/16 09:00 06/05/16 08:59 05/09/16 07:35 20 MG Miscellaneous Information (Pharmacist Discharge Med Rec Consult) 1 ea UD PRN N/A 05/05/16 19:45 06/04/16 19:44 Ondansetron HCl 4 mg 4 mg Q6H PRN IV 05/05/16 19:45 06/04/16 19:44 05/06/16 21:03 4 MG Acetaminophen (Ofirmev Iv) 100 ml @ 400 mls/hr Q8H PRN IV 05/05/16 19:45 06/04/16 19:44 05/07/16 21:30 400 MLS/HR Diphenhydramine HCl (Benadryl Inj) 25 mg Q4H PRN IV 05/05/16 19:45 06/04/16 19:44 Insulin Aspart (novoLOG ASPART) SLIDING SCALE If C... ACHS SC 05/05/16 21:00 06/04/16 20:59 05/09/16 21:24 3 UNITS Glucose (Glucose 40% Gel) UD PRN PO 05/05/16 19:45 06/04/16 19:44 Glucose (Glucose Chew Tab) 1 tabs UD PRN PO 05/05/16 19:45 06/04/16 19:44 Dextrose (Dextrose 50% 50ML Syringe) 50 ml UD PRN IV 05/05/16 19:45 06/04/16 19:44 Glucagon (Glucagon Inj) 1 mg UD PRN SQ 05/05/16 19:45 06/04/16 19:44 Aspirin (Ecotrin Tab) 81 mg QAM PO 05/07/16 09:00 06/06/16 08:59 05/09/16 07:35 81 MG Insulin Glargine (Lantus Solostar Pen) 12 unit BID SC 05/07/16 21:00 06/06/16 20:59 05/09/16 21:23 12 UNIT Lisinopril (Zestril Tab) 40 mg QAM PO 05/08/16 09:00 06/07/16 08:59 05/09/16 07:35 40 MG Pantoprazole Sodium (Protonix Tab) 40 mg DAILY@1100 PO 05/09/16 11:00 06/08/16 10:59 05/09/16 10:23 40 MG Metoprolol Tartrate (Lopressor Tab) 100 mg BID PO 05/09/16 20:00 06/08/16 19:59 05/09/16 21:53 100 MG Objective Vital Signs Date Time Temp Pulse Resp B/P Pulse Ox O2 Delivery O2 Flow Rate FiO2 05/10/16 07:29 36.6 68 18 149/88 97 Room Air 05/10/16 00:00 95 Room Air 05/09/16 21:26 78 156/85 05/09/16 16:00 36.8 78 18 176/102 95 Room Air 05/09/16 15:35 Room Air 05/09/16 09:12 37.0 80 20 156/91 Physical Exam General Appearance: no apparent distress Eyes: PERRL ENT: hearing grossly normal Neck: supple Respiratory/Chest: lungs clear, no respiratory distress, no accessory muscle use Cardiovascular: regular rate, rhythm, no edema Abdomen: normal bowel sounds, non tender, soft Extremities: no pedal edema, no calf tenderness Neurologic/Psychiatric: + pertinent finding (nonverbal. minimal eye contact. will not participate in exam ) Skin: normal color, warm/dry, no rash Laboratory Results Last 24 Hours Test 05/09/16 08:35 05/09/16 11:44 05/09/16 16:41 05/09/16 20:33 Sodium Level 143 mmol/L Potassium Level 3.4 mmol/L Chloride Level 113 mmol/L Carbon Dioxide Level 20 mmol/L Anion Gap 10.0 mmol/L Blood Urea Nitrogen 14 mg/dl Creatinine 1.20 mg/dl Est Creatinine Clear Calc Drug Dose 67.7 ml/min Estimated GFR () 64.1 Estimated GFR (Non- 55.3 BUN/Creatinine Ratio 11.7 Random Glucose 136 mg/dl Calcium Level 8.3 mg/dl Bedside Glucose 144 mg/dl 130 mg/dl 192 mg/dl Test 05/10/16 04:44 05/10/16 07:44 Bedside Glucose 181 mg/dl Assessment and Plan The patient is a 45 old female who is brought to the emergency department due to altered mental status. She has found in the back of her 's truck and a poorly urine. He is a long distance muffler hand in [place]. She reportedly was in an unknown hospital yesterday being assessed for stroke but then signed out AMA, and would not telemetry in the setting tonight. EMS reports that when they found her left arm was rigid and reportedly has been that way for at least a week. The patient's [id number] reports that she has history of TIAs. the patient herself is only able to answer yes or no to questions. She was given 0.4 mg of Narcan en route to the hospital with no change in status. Her blood sugar was 325 when tested by EMS at the scene. 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 * No regional wall motion abnormalities noted. * Ejection Fraction = 60-65%. * Moderate to severe concentric left ventricular hypertrophy. * Injection of contrast documented no interatrial shunt. -Failed her swallowing study. Consult speech therapy, appreciate recommendations -- Evaluated by speech, passed swallow assessment (05/06) -- Recommend speech therapy at acute rehab upon discharge -- Dental soft diet, finger foods, Aspiration precautions, Straws OK, Will need set up assistance. Alternate solids and liquids. Monitor for oral pocketing and oral care after meals. Slow rate. -Aspirin via rectal suppository until oral intake is achieved -- Tolerating oral intake. Start ASA 81 mg PO QAM (05/06) -Consult neurology, appreciate recommendations --Hypercoagulable workup, will need outpatient follow-up. -- +Protein C deficiency --If Hypercoagulable workup is negative, recommend Holter monitor to evaluate paroxysmal a.fib --Toxicology screen negative Permissive hypertension: -Continue to monitor. ?Need for medication --Patient was hypertensive at 212/103 overnight. IV Lopressor and Cardizem ordered. Will initiate Metoprolol 25 mg PO BID and Lisinopril 20 mg PO QAM. () --Increased Metoprolol to 50 mg BID and Lisinopril to 40 mg daily. (05/08) --Increased Metoprolol to 100 mg PO BID (05/09) Per neurology- Blood pressure recommendations while in hospital 175/95-150/80. For the first month after hospital discharge, blood pressure recommendations 150 /90-130/80. Hyperlipidemia: -Lipid panel reviewed -Start Atorvastatin 20 mg PO QAM Diabetes mellitus, her blood sugar upon admission is in the 300s: -ha1c of 14.6 -Sliding insulin scale -BSG AC & HS -Started patient on Lantus 8 units SQ BID on 05/06. Increased to 12 units BID. Continue to titrate as needed. -Diabetic counselling Hypokalemia: -Potassium on 3.4 on 05/09. Given 20 mEq KCL now. Continue to monitor Renal insufficiency, with creatinine upon entrance labs is 1.40: -Treat with IV NSS @ 100 ml/hr -Follow PRP -- Cr. improved 1.2 (05/07) Smoking: -Smoking cessation counselling Code Status: -LEVEL I, FULL Dispo: -Pending [facility] approval.
[2016-05-10 08:57] LABS: BUN/CREATININE RATIO 17.2 (10-20); CALCIUM 8.3 mg/dl (8.5-10.1); CREATININE 1.2 mg/dl (0.60-1.20); POTASSIUM 3.8 mmol/L (3.5-5.1)
[2016-05-10] MEDS: INSULIN GLARGINE SOLOSTAR 100 UNITS/ML 3 ML PEN SC SCH (09:06)
[2016-05-10] MEDS: INSULIN ASPART 100 UNITS/ML 3 ML PEN SC SCH ×2 (09:06→12:53)
[2016-05-10] MEDS ORDERED: NVLGIPEN SC (09:57)
[2016-05-10] MEDS ORDERED: LSN20 PO (09:57)
[2016-05-10] MEDS ORDERED: LPR100 PO (09:57)
[2016-05-10] MEDS ORDERED: LPT20 PO (09:57)
[2016-05-10] MEDS ORDERED: INSDGIPEN SC (09:57)
[2016-05-10] MEDS ORDERED: ASPEC81 PO (09:57)
[2016-05-10 10:01] VITALS: BP 149/88; PULSE 68; TEMP 36.6; O2SAT 97
--- NOTE | 2016-05-10 10:03 | Discharge Instructions ---
Discharge Instructions Admission Reason for Admission: CVA Discharge Discharge Diagnosis / Problem: CVA; DM; HTN; dyslipidemia Discharge Goals Goal(s): Decrease discomfort, Improve function, Increase independence, Improve disease control, Learn about illness, Diagnostic testing, Therapeutic intervention, Prevent Disease Progression Activity Recommendations Activity Limitations: resume your previous activity . Instructions / Follow-Up Instructions / Follow-Up Medications: 1. Hypertension: Metoprolol 100 mg by mouth twice per day. Lisinopril 40 mg by mouth daily 2. Dyslipidemia: Lipitor 20 mg by mouth daily 3. Diabetes Mellitus: Lantus 12 units BID with Novolog 1:16 plus CF:15 with BG goal of 100-150. 4. CVA: ASA 81 mg by mouth daily Speech Therapy Discharge Instructions: 1. Dental soft diet, finger foods 2. Aspiration precautions, Straws OK 3. Will need set up assistance. Alternate solids and liquids. Monitor for oral pocketing and oral care after meals. Slow rate. 4. Would benefit from speech therapy at acute rehab upon discharge. Follow-up with [facility] provider within 24-48 hours You will need to follow-up with your PCP within 5-7 days after discharge from [facility]. Please follow-up/keep all of your subspecialty appointments. Activity Recommendations: See above Activation of Emergency Medical System: Call 911, immediately, if you experience any of the following: Warning Signs and Symptoms of Stroke: * Sudden numbness or weakness of the face, arm or leg, especially on one side of the body * Sudden confusion, trouble speaking or understanding * Sudden trouble seeing in one or both eyes * Sudden trouble walking, dizziness, loss of balance or coordination * Sudden severe headache with no cause Do not delay calling 911 if you experience any warning signs or symptoms of a stroke. Delay in seeking medical attention may affect what treatments can be given to you. Risk Factors for Stroke: You can reduce your chances of stroke by working with your medical provider to adopt a healthy lifestyle. Some specific ways to lower your chance of stroke are: * If you are a smoker, now is the time to stop smoking cigarettes * If you are diabetic, improve the control of your blood sugars * Avoid excessive amounts of alcohol * Control high blood pressure * Lose weight if you are overweight * Be sure to lead an active lifestyle * Eat a healthy diet low in salt, cholesterol and fat You should know about other risk factors for stroke that you are unable to control. These include: * Age 55 years or older * Male gender * Certain racial groups: , or / * Family History of Stroke, Mini stroke or Heart Attack * Sickle Cell Disease Follow Up: It is important for you to keep your follow up appointments with your medical provider. Current Hospital Diet Patient's current hospital diet: AHA Diet (Heart Healthy), Diabetes Type 2 Diet Discharge Diet Recommended Diet: AHA Diet (Heart Healthy), Diabetes Type 2 Diet Diet Texture: Dental Soft (bite-sized) Procedures Procedures Performed: 1. Echocardiogram 2. Neck MRA 3. Head MRA 4. Brain MRI 5. Head CT 6. CXR Pending Studies Studies pending at discharge: no Laboratory Results Last 24 Hours Test 05/09/16 11:44 05/09/16 16:41 05/09/16 20:33 05/10/16 07:44 Bedside Glucose 144 mg/dl 130 mg/dl 192 mg/dl 181 mg/dl Test 05/10/16 08:15 Sodium Level 141 mmol/L Potassium Level 3.8 mmol/L Chloride Level 111 mmol/L Carbon Dioxide Level 22 mmol/L Anion Gap 8.0 mmol/L Blood Urea Nitrogen 21 mg/dl Creatinine 1.20 mg/dl Est Creatinine Clear Calc Drug Dose 67.7 ml/min Estimated GFR () 64.1 Estimated GFR (Non- 55.3 BUN/Creatinine Ratio 17.2 Random Glucose 195 mg/dl Calcium Level 8.3 mg/dl Last 24 Hours Test 05/08/16 11:19 05/08/16 16:56 05/08/16 20:02 05/09/16 07:45 Bedside Glucose 220 mg/dl 190 mg/dl 157 mg/dl 134 mg/dl Test 05/09/16 08:35 Sodium Level 143 mmol/L Potassium Level 3.4 mmol/L Chloride Level 113 mmol/L Carbon Dioxide Level 20 mmol/L Anion Gap 10.0 mmol/L Blood Urea Nitrogen 14 mg/dl Creatinine 1.20 mg/dl Est Creatinine Clear Calc Drug Dose 67.7 ml/min Estimated GFR () 64.1 Estimated GFR (Non- 55.3 BUN/Creatinine Ratio 11.7 Random Glucose 136 mg/dl Calcium Level 8.3 mg/dl Hemoglobin A1c Test 05/05/16 20:16 Range/Units Estimated Average Glucose 372 mg/dl Hemoglobin A1c 14.6 H 4.5-5.6 % Lipid Panel Test 05/06/16 03:55 Range/Units Triglycerides Level 582 H 0-150 mg/dl Cholesterol Level 254 H 0-200 mg/dl HDL Cholesterol 34 mg/dl Cholesterol/HDL Ratio 7.5 LDL Cholesterol, Calculated mg/dl Medical Emergencies . Who to Call and When: Medical Emergencies: If at any time you feel your situation is an emergency, please call 911 immediately. . Non-Emergent Contact Non-Emergency issues call your: Primary Care Provider Call Non-Emergent contact if: you have a fever, your pain is unusual for you, your pain is concerning you, you have any medication questions . . "Provider Documentation" section prepared by Lashawn Wolfe. VTE Core Measure Inpt VTE Proph given/why not?: Contraindicated
--- NOTE | 2016-05-10 10:06 | Discharge Summary ---
Discharge Summary Admission Date: May 05, 2016 at 19:52 Discharge Date: May 10, 2016 Discharge Disposition: Rehab Principal Diagnosis: CVA Problems/Secondary Diagnoses: 1. DM 2. Dyslipidemia 3. HTN 4. Tobacco abuse Procedures: CHEST ONE VIEW PORTABLE HISTORY: Altered mental status. COMPARISON: None. FINDINGS: The lungs are clear. Cardiac silhouette is normal in size. No pleural effusions. No pneumothorax. IMPRESSION: No acute process. Electronically signed by: Fadi Mckenzie M.D. 05/05/2016 7:02 PM Dictated Date/Time: 05/05/2016 7:01 PM The status of this report is Signed. Draft = Not yet reviewed or approved by Radiologist. Signed = Reviewed and approved by Radiologist. HEAD CT ADDENDUM A 2.8 cm posterior fossa arachnoid cyst. Electronically signed by: Fadi Mckenzie M.D. 05/05/2016 11:17 PM Dictated Date/Time: 05/05/2016 11:17 PM ORIGINAL REPORT HEAD CT NONCONTRAST CT DOSE: 537.48 mGy.cm HISTORY: Altered mental status. TECHNIQUE: Multiaxial CT images of the head were performed without the use of intravenous contrast. Automated exposure control was utilized for this study. Comparison: None. Findings: The paranasal sinuses and mastoid air cells are clear. There is a large area of encephalomalacia in involving the majority of the right frontal lobe. This is consistent with an old infarct. There is no mass, hematoma or midline shift. There is mild dilatation of the right lateral ventricle due to the encephalomalacia. There are few small scattered hypodense areas within the periphery of the left parietal lobe, left occipital lobe, and within the left basal ganglia. The dominant focus within the left parietal lobe on image 22 measures 1.7 cm. These likely represent small acute to subacute infarcts. Impression: 1. A few small hypodense areas within the periphery of the left parietal lobe, left occipital lobe, and within the left basal ganglia. These are consistent with acute to subacute infarcts. 2. Old large infarct involving the majority of the right frontal lobe. Electronically signed by: Fadi Mckenzie M.D. 05/05/2016 7:09 PM Dictated Date/Time: 05/05/2016 7:03 PM The status of this report is Signed. Draft = Not yet reviewed or approved by Radiologist. Signed = Reviewed and approved by Radiologist. Brain MRA HISTORY: Abnormal head CT. Stroke - Attention to [place] [facility] [place] TECHNIQUE: 3-D [id number] MRA of the brain was performed without contrast. COMPARISON STUDY: Head CT 05/05/2016. FINDINGS: Motion artifact results in suboptimal evaluation. The distal vertebral arteries, basilar artery, bilateral lead front desk agent are small in caliber but appear patent. Diminutive right ICA. Faint visualization of the proximal right SOFY. The mid to distal right SOFY and the right MCA are not visualized. This is consistent with the patient's old right frontal infarct. Focal signal dropout at the proximal left MCA could be artifactual. The remaining portions of the left MCA are small in caliber but patent. The left SOFY is also small in caliber but patent. IMPRESSION: 1. Nonvisualized/occluded right MCA and SOFY consistent with the patient's history of an old large right frontal lobe infarct. The diminutive right ICA is also secondary to the old infarct. 2. Focal drop out of the proximal left MCA. However, the remaining portions of the left MCA are patent. Therefore, this could be artifact. 3. All of the patient's cerebral vessels appear to be small in caliber which could be congenital. 4. The posterior circulation appears patent. Electronically signed by: Fadi Mckenzie M.D. 05/05/2016 10:38 PM Dictated Date/Time: 05/05/2016 10:32 PM The status of this report is Signed. Draft = Not yet reviewed or approved by Radiologist. Signed = Reviewed and approved by Radiologist. MRI OF THE BRAIN WITHOUT AND WITH IV CONTRAST CLINICAL HISTORY: Stroke COMPARISON STUDY: Head CT dated 05/05/2016 TECHNIQUE: MRI of the brain was performed from the vertex to the skull base utilizing various T1 and T2 weighted sequences. Following the IV administration of 20 mL of Magnevist contrast, additional enhanced images were obtained. FINDINGS: Sagittal T1, axial diffusion, proton density and T2 weighted axial, coronal FLAIR, and pre and post axial T1-weighted images were acquired. These were supplemented with post gadolinium coronal T1 weighted images. No intra or extra-axial mass lesions are visualized. There are foci of reticular water diffusion involving portions of the left temporal, frontal, and parietal lobes. There is also a focus of restricted water diffusion within the left basal ganglia. There is a punctate focus of restricted water diffusion within the right parietal lobe. There is an old large right middle cerebral artery infarct. There is compensatory dilatation of the right lateral ventricle. Proton density T2-weighted and FLAIR images reveal there is right hemispheric edema surrounding the old large right MCA distribution infarct. There are foci of increased signal within the left hemisphere corresponding to areas of acute/subacute infarction. 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 There are no abnormal flow voids. There is no evidence of pathologic enhancement. IMPRESSION: 1. Old large right hemispheric infarct in the distribution of the right middle cerebral artery 2. Multiple foci of restricted water diffusion within the left hemisphere involving the left occipital parietal temporal and frontal lobes. There is also involvement of the left basal ganglia. The findings are consistent with multiple acute/subacute infarcts, possibly embolic. Electronically signed by: Paulo Brown M.D. 05/06/2016 6:45 AM Dictated Date/Time: 05/06/2016 6:41 AM The status of this report is Signed. Draft = Not yet reviewed or approved by Radiologist. Signed = Reviewed and approved by Radiologist. NECK MRA HISTORY: Altered mental status. Stroke symptoms. TECHNIQUE: [id number] and gadolinium-enhanced MRA of the neck was performed both before and after the intravenous administration of contrast. All measurements were calculated based on NASCET criteria. COMPARISON STUDY: None. FINDINGS: The aortic arch and proximal great vessels are widely patent. Mild hypoplastic right vertebral artery. The left vertebral artery is patent. Bilateral common carotid arteries are patent. There is a hypoplastic right internal carotid artery without significant stenosis. This corresponds to the old right-sided infarcts. The proximal to mid right vertebral artery appears irregular which may be due to the motion artifact. The distal right vertebral artery is patent. No significant stenosis within the left internal carotid artery. IMPRESSION: 1. No significant stenosis seen within the bilateral common or left internal carotid artery. 2. The right internal carotid artery is diminutive which likely corresponds to the patient's old right-sided infarct. Otherwise, no significant stenosis or occlusion. 3. The proximal to mid right vertebral artery is not well-visualized likely due to motion artifact. Electronically signed by: Fadi Mckenzie M.D. 05/05/2016 11:05 PM Dictated Date/Time: 05/05/2016 11:00 PM The status of this report is Signed. Draft = Not yet reviewed or approved by Radiologist. Signed = Reviewed and approved by Radiologist. ECHOCARDIOGRAM Interpretation Summary * Name: OLIVER BARRERA Study Date: 05/06/2016 06:22 AM BP: 173/103 mmHg * Patient Location: [facility]\S\[id number] HR: 80 * : 1970 (M/d/yyyy) Gender: Female * Age: 45 yrs Ethnicity: CA Weight: 207 lb * Ordering Physician: William Castillo * Referring Physician: Self, Referred * Performed By: Denise Arechiga [facility] * * Reason For Study: CEREBRAL ISCHEMIA / EMBOLUS * -- Conclusions -- * Left ventricular systolic function is normal. * No regional wall motion abnormalities noted. * Ejection Fraction = 60-65%. * Moderate to severe concentric left ventricular hypertrophy. * Injection of contrast documented no interatrial shunt. Procedure Details * A complete two-dimensional transthoracic echocardiogram was performed (2D, M- mode, Doppler and color flow Doppler). * A saline contrast injection was performed to assess for cardiac shunting. * The injection was performed through an intravenous line in the right arm. * The attending nurse who injected the saline contrast was MALICK TINSLEY RN. * A total of 20 cc of agitated saline was given. Left Ventricle * The left ventricular cavity is small. * Moderate to severe concentric left ventricular hypertrophy. * Ejection Fraction = 60-65%. * Left ventricular systolic function is normal. * No regional wall motion abnormalities noted. Right Ventricle * The right ventricle is not well visualized. * The right ventricular systolic function is normal as assessed by tricuspid annular plane systolic excursion (TAPSE) (normal >1.5 cm). Atria * The left atrial size is normal. * Right atrial size is normal. * Injection of contrast documented no interatrial shunt. Mitral Valve * The mitral valve is grossly normal. * There is no mitral valve stenosis. * Significant mitral regurgitation is absent. Tricuspid Valve * The tricuspid valve is not well visualized. * Significant tricuspid regurgitation is absent. Aortic Valve * The aortic valve is not well visualized. * The aortic valve opens well. * No hemodynamically significant valvular aortic stenosis. * There is no significant aortic regurgitation. Pulmonic Valve * The pulmonic valve is not well visualized. Great Vessels * The aortic root and proximal ascending aorta are normal sized. * The pulmonary is not well visualized. Pericardium/Pleural * There is no pericardial effusion. Great Vessels * IVC not well seen. MMode 2D Measurements and Calculations IVSd 1.9 cm IVSs 1.9 cm LVIDd 4.0 cm LVIDs 3.0 cm LVPWd 1.6 cm LVPWs 2.1 cm IVS/LVPW 1.2 FS 24.4 % EDV(Teich) 68.6 ml ESV(Teich) 35.0 ml EF(Teich) 49.0 % EDV(cubed) 62.4 ml ESV(cubed) 27.0 ml EF(cubed) 56.8 % % IVS thick -1.51 % % LVPW thick 31.5 % LV mass(C)d 302.7 grams LV mass(C)s 268.2 grams SV(Teich) 33.6 ml SV(cubed) 35.4 ml Ao root diam 3.0 cm Ao root area 7.0 cm\S\2 LA dimension 2.8 cm LA/Ao 0.92 LVOT diam 2.0 cm LVOT area 3.3 cm\S\2 LVAd ap4 35.9 cm\S\2 LVLd ap4 8.4 cm EDV(MOD-sp4) 123.2 ml EDV(sp4-el) 130.3 ml LVAs ap4 22.9 cm\S\2 LVLs ap4 6.8 cm ESV(MOD-sp4) 63.6 ml ESV(sp4-el) 65.4 ml EF(MOD-sp4) 48.4 % EF(sp4-el) 49.8 % LVAd ap2 37.7 cm\S\2 LVLd ap2 9.0 cm EDV(MOD-sp2) 130.3 ml EDV(sp2-el) 134.3 ml LVAs ap2 24.9 cm\S\2 LVLs ap2 6.9 cm ESV(MOD-sp2) 74.0 ml ESV(sp2-el) 76.2 ml EF(MOD-sp2) 43.2 % EF(sp2-el) 43.3 % LVLd %diff 6.2 % EDV(MOD-bp) 130.3 ml LVLs %diff 1.5 % ESV(MOD-bp) 68.9 ml EF(MOD-bp) 47.1 % SV(MOD-sp4) 59.7 ml SV(MOD-sp2) 56.3 ml SV(MOD-bp) 61.4 ml SV(sp4-el) 64.9 ml SV(sp2-el) 58.1 ml Doppler Measurements and Calculations MV E max juan 131.4 cm/sec MV P1/2t max juan 173.7 cm/sec MV P1/2t 49.9 msec MVA(P1/2t) 4.4 cm\S\2 MV dec slope 1020.0 cm/sec\S\2 MV dec time 0.13 sec Ao V2 max 132.5 cm/sec Ao max PG 7.0 mmHg Ao max PG (full) 5.1 mmHg BUD(V,A) 1.7 cm\S\2 BUD(V,D) 1.7 cm\S\2 LV V1 max PG 2.0 mmHg LV V1 max 69.8 cm/sec PA V2 max 119.4 cm/sec PA max PG 5.7 mmHg Created: Initialized: 05/06/16; 1341 <Electronically signed by Michael Smalls M.D.> Signed: 05/06/16 1533 Michael Smalls M.D. The status of this report is Signed. Draft = Not yet reviewed or approved by [employer]. Signed = Reviewed and approved by [employer]cel[employer] W[employer]er. Consultations: Neurology- Dr. Bender Medication Reconciliation New Medications: Aspirin (Aspirin EC Low Dose) 81 Mg Ectab 81 MG PO QAM, #30 TABS 3 Refills Atorvastatin (Atorvastatin Calcium) 20 Mg Tab 20 MG PO QAM, #30 TAB 3 Refills Insulin Aspart (Novolog Flexpen) 100 Units/Ml Inj 0 UNITS SC ACHS for 30 Days, #1 BOX 3 Refills Sliding scale: goal LOW 100, HIGH 150 correction factor 15 mg/dL/unit carbohydrate ratio 1 unit per 16 gm carbs consumed Insulin Glargine (Lantus Solostar) 100 Unit/Ml Inj 12 UNIT SC BID, #1 BOX 3 Refills Lisinopril (Lisinopril) 20 Mg Tab 40 MG PO QAM, #30 TAB 3 Refills Metoprolol Tartrate (Metoprolol Tartrate) 100 Mg Tab 100 MG PO BID, #60 TAB 3 Refills Discontinued Medications: Insulin Glargine (Lantus Solostar) 100 Unit/Ml Inj 10 UNITS SC QPM, PEN Discharge Exam ROS not obtained due to patient's mental status Physical Exam: General Appearance: no apparent distress Eyes: PERRL ENT: hearing grossly normal Neck: supple Respiratory/Chest: lungs clear, no respiratory distress, no accessory muscle use Cardiovascular: regular rate, rhythm, no edema, normal peripheral pulses Abdomen / GI: normal bowel sounds, non tender, soft Extremities: no calf tenderness, no pedal edema Neurologic/Psychiatric: + pertinent finding (nonverbal. minimal eye contact. will not participate in exam) Skin: normal color, warm/dry, no rash Hospital Course The patient is a 45 old female who is brought to the emergency department due to altered mental status. She has found in the back of her 's truck and a poorly urine. 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 She reportedly was in an unknown hospital yesterday being assessed for stroke but then signed out AMA, and would not telemetry in the setting tonight. EMS reports that when they found her left arm was rigid and reportedly has been that way for at least a week. The patient's [id number] reports that she has history of TIAs. the patient herself is only able to answer yes or no to questions. She was given 0.4 mg of Narcan en route to the hospital with no change in status. Her blood sugar was 325 when tested by EMS at the scene. 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 * No regional wall motion abnormalities noted. * Ejection Fraction = 60-65%. * Moderate to severe concentric left ventricular hypertrophy. * Injection of contrast documented no interatrial shunt. -Failed her swallowing study. Consult speech therapy, appreciate recommendations -- Evaluated by speech, passed swallow assessment (05/06) -- Recommend speech therapy at acute rehab upon discharge -- Dental soft diet, finger foods, Aspiration precautions, Straws OK, Will need set up assistance. Alternate solids and liquids. Monitor for oral pocketing and oral care after meals. Slow rate. -Aspirin via rectal suppository until oral intake is achieved -- Tolerating oral intake. Start ASA 81 mg PO QAM (05/06) -Consult neurology, appreciate recommendations --Hypercoagulable workup, will need outpatient follow-up. -- +Protein C deficiency --If Hypercoagulable workup is negative, recommend Holter monitor to evaluate paroxysmal a.fib --Toxicology screen negative Permissive hypertension: -Continue to monitor. ?Need for medication --Patient was hypertensive at 212/103 overnight. IV Lopressor and Cardizem ordered. Will initiate Metoprolol 25 mg PO BID and Lisinopril 20 mg PO QAM. () --Increased Metoprolol to 50 mg BID and Lisinopril to 40 mg daily. (05/08) --Increased Metoprolol to 100 mg PO BID (05/09) Per neurology- Blood pressure recommendations while in hospital 175/95-150/80. For the first month after hospital discharge, blood pressure recommendations 150 /90-130/80. Hyperlipidemia: -Lipid panel reviewed -Start Atorvastatin 20 mg PO QAM Diabetes mellitus, her blood sugar upon admission is in the 300s: -ha1c of 14.6 -Sliding insulin scale -BSG AC & HS -Started patient on Lantus 8 units SQ BID on 05/06. Increased to 12 units BID. Continue to titrate as needed. -Diabetic counselling Renal insufficiency, with creatinine upon entrance labs is 1.40: -Treat with IV NSS @ 100 ml/hr -Follow PRP -- Cr. improved 1.2 (05/07) Smoking: -Smoking cessation counselling Code Status: -LEVEL I, FULL Dispo: -Discharge to [facility] Total Time Spent: Greater than 30 minutes This includes examination of the patient, discharge planning, medication reconciliation, and communication with other providers. Discharge Instructions Please refer to the electronic Patient Visit Report (Discharge Instructions) for additional information. Follow-Up Follow-up with [facility] provider within 24-48 hours Follow-up with PCP within 1 week from discharge at [facility] Please follow-up/keep all of your subspecialty appointments Additional Copies To Alma Mcclendon
[2016-05-10] MEDS: PANTOprazole SOD 40 MG TAB PO SCH (11:27)
== END 2016-05-10 15:48 | DRG 66 ==
LOC: ENRESERVTM → ENRESERVDT → EDBD 18:29 → C.ED 18:31 → C.2T 19:52 → C.MS4W 05-08 14:50
PROVIDERS: ADMIT Hospitalist; ATTEND Internal Medicine
DX: I63.9 Cerebral infarction, unspecified (principal); E11.65 Type 2 diabetes mellitus with hyperglycemia; E78.5 Hyperlipidemia, unspecified; E87.6 Hypokalemia; G93.89 Other specified disorders of brain; I10 Essential (primary) hypertension; I25.2 Old myocardial infarction; I65.21 Occlusion and stenosis of right carotid artery; N28.9 Disorder of kidney and ureter, unspecified; R41.82 Altered mental status, unspecified; Z79.4 Long term (current) use of insulin

== ENCOUNTER → 2016-06-02 | Outpatient (CLI) | payer OTHER ==
[~2016-06-02] MED LIST: ACET325T96 PO; AMLO-110 PO; ASPEC81 PO; ENOX40IN SQ; INSDGIPEN SC; LPR100 PO; LPT20 PO; LSN20 PO; NVLGIPEN SC; SENN-61 PO; VTMD1000 PO
[2016-06-02 10:25] LABS: BASO % 0.2 %; BASO ABS # 0.02 K/uL (0-0.2); EOS % 2.4 %; HEMATOCRIT 25.9 % (37-47); IG% 0.2 %; LYMPH % 33.8 %; LYMPH ABS # 2.95 K/uL (1.2-3.4); MEAN CELL VOLUME 79.9 fL (80-100); MEAN CORPUSCULAR HEMOGLOBIN 27.2 pg (25-34); MEAN PLATELET VOLUME 10.1 fL (7.4-10.4); MONO % 8.6 %; NEUT % 54.8 %; PLATELET COUNT 238 K/uL (130-400); RED BLOOD COUNT 3.24 M/uL (4.2-5.4); WHITE BLOOD COUNT 8.72 K/uL (4.8-10.8)
[2016-06-02 10:35] LABS: BLOOD UREA NITROGEN 58 mg/dl (7-18); CALCIUM 8.5 mg/dl (8.5-10.1); CARBON DIOXIDE 21 mmol/L (21-32); CHLORIDE 107 mmol/L (98-107); GLUCOSE 92 mg/dl (70-99); POTASSIUM 4.8 mmol/L (3.5-5.1); SODIUM 138 mmol/L (136-145)
[2016-06-02 10:43] LABS: COMPLETE YES
== END ==
LOC: C.LABCC 09:57
PROVIDERS: ATTEND Internal Medicine
DX: Z51.81 Encounter for therapeutic drug level monitoring (principal); Z79.01 Long term (current) use of anticoagulants

== ENCOUNTER → 2016-06-03 | Outpatient (CLI) | payer OTHER ==
[2016-06-03 08:49] LABS: BLOOD UREA NITROGEN 56 mg/dl (7-18); BUN/CREATININE RATIO 25.6 (10-20); CALCIUM 8.7 mg/dl (8.5-10.1); CARBON DIOXIDE 18 mmol/L (21-32); CHLORIDE 109 mmol/L (98-107); GLUCOSE 129 mg/dl (70-99); POTASSIUM 4.7 mmol/L (3.5-5.1); SODIUM 140 mmol/L (136-145)
== END ==
LOC: C.LABCC 08:26
PROVIDERS: ATTEND Internal Medicine
DX: R79.89 Other specified abnormal findings of blood chemistry (principal)

== ENCOUNTER 2016-06-04 11:27 | Inpatient (IN) | payer OTHER ==
[2016-06-04] VITALS (7 sets, daily range): BP systolic 89–105; BP diastolic 59–74; PULSE 68–83; TEMP 36.5–37.2; O2SAT 96–100; BMI 33.7
[~2016-06-04] VITALS: Ht 162.6 cm; Wt 88.3 kg
[~2016-06-04 11:27] MED LIST changes: -ACET325T96 PO; -AMLO-110 PO; -ENOX40IN SQ; -SENN-61 PO; -VTMD1000 PO
[2016-06-04] MEDS ORDERED: SODIUM CHLORIDE 0.9% 1000ML 1,000 ML IV SCH (12:31)
[2016-06-04] MEDS ORDERED: ONDANSETRON INJ 2 MG/ML 2 ML VIAL IV STA (12:31)
[2016-06-04] MEDS ORDERED: DEXTROSE 50% 50 ML SYR IV STA (12:39)
[2016-06-04] MEDS ORDERED: ENOX40IN SQ (12:42)
[2016-06-04] MEDS ORDERED: ACET325T96 PO (12:42)
[2016-06-04] MEDS ORDERED: AMLO-110 PO (12:42)
[2016-06-04] MEDS ORDERED: SENN-61 PO (12:42)
--- NOTE | 2016-06-04 13:07 | EMERGENCY ROOM VISIT NOTE ---
History Report prepared by [place]: Mandeep Farah Under the Supervision of: Dr. Michael Fermin D.O. First contact with patient: 12:19 Chief Complaint: OTHER COMPLAINT Stated Complaint: INCREASED STROKE-LIKE SYMPTOMS History of Present Illness The patient is a 45 year old female who presents to the Emergency Room via EMS with complaints of worsened stroke-like symptoms starting today. She had an old right sided stroke in the past. The patient had a left sided stroke a few weeks ago which caused expressive aphasia and right sided deficits. She was sent to [facility] for rehab. During [employer] today, the patient had a vomiting episode and was looking more to the left. She was also hypotensive. She was otherwise at baseline. The patient has been having heavy menses for the past few days. She is on Lovenox 40 mg daily for DVT prophylaxis. HPI is limited secondary to altered mental status. Additional history was obtained as per Emergency Department nurse and transfer notes. Source of History: transfer records, nursing staff History Limited By: AMS Onset: today Position: other (global) Quality: other (stroke-like symptoms) Associated Symptoms: + vomiting Review of Systems ROS is limited secondary to altered mental status. Past Medical & Surgical Medical Problems: (1) Acute blood loss anemia (2) CVA (cerebral vascular accident) Family History Patient reports no known family medical history. Social History Smoking Status: Unknown if Ever Smoked Drug Use: none Marital Status: Housing Status: lives with significant other Current/Historical Medications Scheduled Amlodipine (Norvasc), 5 MG PO DAILY Aspirin (Aspirin EC Low Dose), 81 MG PO QAM Atorvastatin (Atorvastatin Calcium), 20 MG PO QAM Enoxaparin (Lovenox), 40 MG SQ DAILY Insulin Aspart (Novolog Flexpen), 0 UNITS SC ACHS Insulin Glargine (Lantus Solostar), 12 UNIT SC BID Metoprolol Tartrate (Metoprolol Tartrate), 100 MG PO BID Miscellaneous Medications Acetaminophen Tab (Tylenol), 325 MG PO Senna (Senokot), 1 TAB PO Allergies Coded Allergies: Penicillins (Unverified Allergy, Unknown, UNKNOWN, 06/04/16) Physical Exam Vital Signs Date Time Temp Pulse Resp B/P Pulse Ox O2 Delivery O2 Flow Rate FiO2 06/04/16 17:54 90 06/04/16 16:51 81 16 103/73 100 Room Air 06/04/16 15:19 81 18 120/64 98 Room Air 06/04/16 14:26 71 18 113/61 100 Room Air 06/04/16 13:54 71 06/04/16 13:02 74 18 142/83 98 Room Air 06/04/16 12:40 100 Room Air 06/04/16 11:56 77 06/04/16 11:33 36.6 89 18 114/75 100 Room Air Physical Exam GENERAL: Patient is awake, and looking around the room, does not follow commands, does respond to verbal stimuli. EYES: The conjunctivae are clear. The pupils are round and reactive. EARS, NOSE, MOUTH AND THROAT: The nose is without any evidence of any deformity. Mucous membranes are moist tongue is midline NECK: The neck is nontender and supple. RESPIRATORY: Normal respiratory effort is noted there is no evidence of wheezing rhonchi or rales CARDIOVASCULAR: Regular rate and rhythm noted there no murmurs rubs or gallops normal S1 normal S2 GASTROINTESTINAL: The abdomen is soft. Bowel sounds are present in all quadrants. Abdomen is nontender RECTAL: Light brown stool. Swab was heme positive. MUSCULOSKELETAL/EXTREMITIES: There is no evidence of gross deformity full range of motion is noted in the hips and shoulders SKIN: There is no obvious evidence of any rash. There are no petechiae, pallor or cyanosis noted. Trace pedal edema bilaterally. NEUROLOGIC: Patient is looking around the room, moving all extremities, strength is diminished but symmetric, no definite facial droop noted. Medical Decision & Procedures ER Provider Diagnostic Interpretation: X ray results and stated below per my interpretation and radiology interpretation. CT and US results per my review and radiologist interpretation: CHEST ONE VIEW PORTABLE CLINICAL HISTORY: Stroke like symptoms. COMPARISON STUDY: Chest radiograph May 05, 2016 per FINDINGS: Lung volumes are normal. Lungs are clear. There is no pneumothorax or pleural effusion. Cardiomediastinal silhouette is normal. There is no evidence of pulmonary edema. IMPRESSION: No acute cardiopulmonary findings. Electronically signed by: Delmar Hood M.D. 06/04/2016 2:05 PM Dictated Date/Time: 06/04/2016 2:[address] SCAN OF THE BRAIN WITHOUT IV CONTRAST CLINICAL HISTORY: Strokelike symptoms. COMPARISON STUDY: CT and MRI of the brain dated 05/05/2016. TECHNIQUE: Unenhanced axial CT scan of the brain is performed from the vertex to the skull base. Automated dose control exposure was utilized. CT DOSE: 537.48 mGy.cm FINDINGS: Brain parenchyma: A large region of right frontoparietal encephalomalacia is unchanged and consistent with remote infarct. There is associated ex vacuo dilatation of the right lateral ventricle. Evolving infarcts are again seen in the left posterior parietal region. There are also chronic lacunar infarcts in the basal ganglia. There is no hemorrhage, mass effect, or evidence of acute territorial ischemia by CT criteria. No extra-axial fluid collection is seen. Ventricles, sulci, cisterns: Normal in configuration. Megacisterna magna is incidentally noted. Intracranial vasculature: The visualized intracranial vasculature at the skull base is normal in appearance. Calvarium: Unremarkable. Sinuses and mastoids: The visualized paranasal sinuses are clear. The mastoid air cells are well pneumatized. Orbits: The bony orbits are grossly intact. IMPRESSION: 1. There is no hemorrhage, mass effect, or evidence of acute territorial ischemia by CT criteria. 2. A remote right frontoparietal infarct is unchanged. 3. Small evolving cortical infarcts are identified in the left parietal lobe region. These were also seen on 05/05/2016. Electronically signed by: Chirag Finney M.D. 06/04/2016 1:21 PM Dictated Date/Time: 06/04/2016 1:16 PM EXAMINATION: PELVIC ULTRASOUND CLINICAL HISTORY: heavy vaginal bleeding PELVIC PAIN COMPARISON STUDY: None FINDINGS: The uterus measured 9.9 cm. The endometrial stripe measured 8 mm. The right ovary measured 2.7 cm maximum dimension with normal vascular flow. 1.3 cm cyst.. The left ovary measured 2.2 cm maximum dimension. Normal vascular flow.. There is no ultrasonographic evidence of ovarian torsion. It should be noted that ovarian torsion can be present with normal Doppler ultrasonographic findings. There was no evidence of pathologic free pelvic fluid. IMPRESSION: 1. Small right renal cyst. Otherwise negative study Electronically signed by: Boaz Chiang M.D. 06/04/2016 3:24 PM Dictated Date/Time: 06/04/2016 3:22 PM Laboratory Results 06/04/16 12:55 Red Blood Count 2.67, Mean Corpuscular Volume 78.7, Mean Corpuscular Hemoglobin 27.0, Mean Corpuscular Hemoglobin Concent 34.3, Mean Platelet Volume 9.4, Neutrophils (%) (Auto) 76.6, Lymphocytes (%) (Auto) 17.6, Monocytes (%) (Auto) 4.3, Eosinophils (%) (Auto) 0.9, Basophils (%) (Auto) 0.2, Neutrophils # (Auto) 8.68, Lymphocytes # (Auto) 1.99, Monocytes # (Auto) 0.49, Eosinophils # (Auto) 0.10, Basophils # (Auto) 0.02 06/04/16 12:55 Test 06/04/16 12:55 06/04/16 12:58 06/04/16 13:40 White Blood Count 11.32 K/uL (4.8-10.8) Red Blood Count 2.67 M/uL (4.2-5.4) Hemoglobin 7.2 g/dL (12.0-16.0) Hematocrit 21.0 % (37-47) Mean Corpuscular Volume 78.7 fL (80-100) Mean Corpuscular Hemoglobin 27.0 pg (25-34) Mean Corpuscular Hemoglobin Concent 34.3 g/dl (32-36) Platelet Count 216 K/uL (130-400) Mean Platelet Volume 9.4 fL (7.4-10.4) Neutrophils (%) (Auto) 76.6 % Lymphocytes (%) (Auto) 17.6 % Monocytes (%) (Auto) 4.3 % Eosinophils (%) (Auto) 0.9 % Basophils (%) (Auto) 0.2 % Neutrophils # (Auto) 8.68 K/uL (1.4-6.5) Lymphocytes # (Auto) 1.99 K/uL (1.2-3.4) Monocytes # (Auto) 0.49 K/uL (0.11-0.59) Eosinophils # (Auto) 0.10 K/uL (0-0.5) Basophils # (Auto) 0.02 K/uL (0-0.2) RDW Standard Deviation 38.0 fL (36.4-46.3) RDW Coefficient of Variation 13.3 % (11.5-14.5) Immature Granulocyte % (Auto) 0.4 % Immature Granulocyte # (Auto) 0.04 K/uL (0.00-0.02) Red Blood Cell Morphology Unremarkable Prothrombin Time 10.6 SECONDS (9.0-12.0) Prothromb Time International Ratio 1.0 (0.9-1.1) Activated Partial Thromboplast Time 22.7 SECONDS (21.0-31.0) Partial Thromboplastin Ratio 0.9 Anion Gap 9.0 mmol/L (3-11) Est Creatinine Clear Calc Drug Dose 37.3 ml/min Estimated GFR () 32.6 Estimated GFR (Non- 28.1 BUN/Creatinine Ratio 25.6 (10-20) Calcium Level 8.7 mg/dl (8.5-10.1) Total Creatine Kinase 18 U/L (26-192) Creatine Kinase MB < 0.5 ng/ml (0.5-3.6) Creatine Kinase MB Ratio (0-3.0) Troponin I < 0.015 ng/ml (0-0.045) Human Chorionic Gonadotropin, Qual NEG (NEG) Bedside Glucose 117 mg/dl (70-90) Urine Color YELLOW Urine Appearance CLOUDY (CLEAR) Urine pH 5.5 (4.5-7.5) Urine Specific [place] 1.009 (1.000-1.030) Urine Protein TRACE (NEG) Urine Glucose (UA) NEG (NEG) Urine Ketones NEG (NEG) Urine Occult Blood NEG (NEG) Urine Nitrite NEG (NEG) Urine Bilirubin NEG (NEG) Urine Urobilinogen NEG (NEG) Urine Leukocyte Esterase NEG (NEG) Urine WBC (Auto) 1-5 /hpf (0-5) Urine RBC (Auto) 0-4 /hpf (0-4) Urine Hyaline Casts (Auto) 1-5 /lpf (0-5) Urine Epithelial Cells (Auto) 10-20 /lpf (0-5) Urine Bacteria (Auto) 1+ (NEG) Urine Opiates Screen NEG (NEG) Urine Methadone, Qualitative NEG (NEG) Urine Barbiturates NEG (NEG) Urine Phencyclidine (PCP) Level NEG (NEG) Ur Amphetamine/Methamphetamine NEG (NEG) MDMA (Ecstasy) Screen NEG (NEG) Urine Benzodiazepines Screen NEG (NEG) Urine Cocaine Metabolite NEG (NEG) Urine Marijuana (THC) NEG (NEG) Laboratory results per my review. Medications Administered Medications (Trade) Dose Ordered Sig/Gus Route Start Time Stop Time Status Last Admin Dose Admin Sodium Chloride (Nss 1000ml) 1,000 ml @ 50 mls/hr Q20H IV 06/04/16 12:31 07/04/16 12:30 06/04/16 12:31 50 MLS/HR Ondansetron HCl (Zofran Inj) 4 mg NOW STAT IV 06/04/16 12:31 06/04/16 12:34 DC 06/04/16 12:31 4 MG Dextrose 25 ml 25 ml NOW STAT IV 06/04/16 12:39 06/04/16 12:40 DC 06/04/16 12:39 25 ML Sodium Chloride (Nss 500ml) 500 ml @ 999 mls/hr Q31M STAT IV 06/04/16 13:39 06/04/16 14:09 DC 06/04/16 13:48 999 MLS/HR ECG Indication: other (worsened stroke-like ) Rate (beats per minute): 77 Rhythm: normal sinus Findings: T-wave inversion (lateral), no ectopy, other (LVH by voltage criteria ) Comparison ECG Date: May 07, 2016 Change: no significant change ED Course 1219: The patient was evaluated in room C11B. A complete history and physical examination were performed. 1231: Zofran Inj 4 mg IV, Sodium Chloride 1000 ml @ 50 mls/hr IV 1239: Dextrose 25 ml IV 1339: Sodium Chloride 500 ml @ 999 mls/hr IV 1410: I performed rectal exam. Refer to physical exam for further details. 1605: I discussed the patient's case with [facility]. 1611: Upon reevaluation, the patient is resting comfortably. [facility] The patient will be evaluated for further management and care. Medical Decision Prior records/ancillary studies reviewed and summarized above. Nursing notes reviewed. Additional history obtained from nursing staff and transfer records. Differential diagnosis: Etiologies such as metabolic, infection, hypo/hyperglycemia, electrolyte abnormalities, cardiac sources, intracerebral event, toxicologic, neurologic, as well as others were entertained. The patient is a 45-year-old female who presented to the emergency Department from [facility] the patient has a very unfortunate history of strokes. She had a most recent stroke in April of this year. Currently she resides at a fpc. While there she had an episode which they're unsure was a possible seizure where she was staring off but she was also hypotensive. The patient had no focal neurologic deficits other than aphasia. Understanding this is not new for her. The patient has been having vaginal bleeding but she currently takes Lovenox for DVT prophylaxis. The patient was found have significant anemia. Since she is no longer having vaginal bleeding this could improve on its own but I [facility] and they felt that the admitting physicians there would not be comfortable taking her back at this time. For this reason I discussed his case with the on-call [facility] hospitalist group. They've agreed to evaluate the patient in the emergency department for further management and disposition. Consults Time Called: 1600 Consulting Physician: Ari Shields Returned Call: 1605 I discussed the patient's case with Ari Shields. Additional Consults: Time Called: 1608 Consulted Physician: Dr. Cummings of the [facility] Hospitalist Service Returned Call: 1611 Additional Comments: [facility] Impression Primary Impression: Altered mental status Additional Impressions: Vaginal bleeding Severe anemia Hypoglycemia Scribe Attestation The scribe's documentation has been prepared under my direction and personally reviewed by me in its entirety. I confirm that the note above accurately reflects all work, treatment, procedures, and medical decision making performed by me. Departure Information Dispostion Being Evaluated By Hospitalist Referrals Alyson Chapman (PCP) Patient Instructions My [facility] Problem Qualifiers
[2016-06-04 13:09] LABS: BASO % 0.2 %; BASO ABS # 0.02 K/uL (0-0.2); EOS % 0.9 %; IG% 0.4 %; LYMPH % 17.6 %; LYMPH ABS # 1.99 K/uL (1.2-3.4); MEAN CELL VOLUME 78.7 fL (80-100); MEAN CORPUSCULAR HGB CONC 34.3 g/dl (32-36); MEAN PLATELET VOLUME 9.4 fL (7.4-10.4); MONO % 4.3 %; NEUT % 76.6 %; PLATELET COUNT 216 K/uL (130-400); RED BLOOD COUNT 2.67 M/uL (4.2-5.4); WHITE BLOOD COUNT 11.32 K/uL (4.8-10.8)
[2016-06-04 13:22] LABS: PARTIAL THROMBOPLASTIN RATIO 0.9; PROTHROMBIN TIME (PATIENT) 10.6 SECONDS (9.0-12.0)
--- NOTE | 2016-06-04 13:22 | DIAGNOSTIC IMAGING REPORT ---
CT SCAN OF THE BRAIN WITHOUT IV CONTRAST CLINICAL HISTORY: Strokelike symptoms. COMPARISON STUDY: CT and MRI of the brain dated 05/05/2016. TECHNIQUE: Unenhanced axial CT scan of the brain is performed from the vertex to the skull base. Automated dose control exposure was utilized. CT DOSE: 537.48 mGy.cm FINDINGS: Brain parenchyma: A large region of right frontoparietal encephalomalacia is unchanged and consistent with remote infarct. There is associated ex vacuo dilatation of the right lateral ventricle. Evolving infarcts are again seen in the left posterior parietal region. There are also chronic lacunar infarcts in the basal ganglia. There is no hemorrhage, mass effect, or evidence of acute territorial ischemia by CT criteria. No extra-axial fluid collection is seen. Ventricles, sulci, cisterns: Normal in configuration. Megacisterna magna is incidentally noted. Intracranial vasculature: The visualized intracranial vasculature at the skull base is normal in appearance. Calvarium: Unremarkable. Sinuses and mastoids: The visualized paranasal sinuses are clear. The mastoid air cells are well pneumatized. Orbits: The bony orbits are grossly intact. IMPRESSION: 1. There is no hemorrhage, mass effect, or evidence of acute territorial ischemia by CT criteria. 2. A remote right frontoparietal infarct is unchanged. 3. Small evolving cortical infarcts are identified in the left parietal lobe region. These were also seen on 05/05/2016. Electronically signed by: Chirag Finney M.D. 06/04/2016 1:21 PM Dictated Date/Time: 06/04/2016 1:16 PM
[2016-06-04 13:27] LABS: BLOOD UREA NITROGEN 54 mg/dl (7-18); BUN/CREATININE RATIO 25.6 (10-20); CALCIUM 8.7 mg/dl (8.5-10.1); CARBON DIOXIDE 20 mmol/L (21-32); CHLORIDE 110 mmol/L (98-107); GLUCOSE 131 mg/dl (70-99); POTASSIUM 4.5 mmol/L (3.5-5.1); SODIUM 139 mmol/L (136-145)
[2016-06-04 13:37] LABS: COMPLETE YES
[2016-06-04] MEDS ORDERED: SODIUM CHLORIDE 0.9% 500ML 500 ML IV STA (13:39)
[2016-06-04 14:01] LABS: URINE APPEARANCE CLOUDY (CLEAR); URINE BILIRUBIN NEG (NEG); URINE COLOR YELLOW; URINE NITRITE NEG (NEG); URINE PH 5.5 (4.5-7.5); URINE SPECIFIC GRAVITY 1.009 (1.000-1.030); UROBILINOGEN NEG (NEG); ZZURINE CULT IF INDIC CATH YES
[2016-06-04 14:03] LABS: MANUAL MICROSCOPIC REQUIRED? NO; REVIEW REQ? NO
--- NOTE | 2016-06-04 14:07 | DIAGNOSTIC IMAGING REPORT ---
CHEST ONE VIEW PORTABLE CLINICAL HISTORY: Stroke like symptoms. COMPARISON STUDY: Chest radiograph May 05, 2016 per FINDINGS: Lung volumes are normal. Lungs are clear. There is no pneumothorax or pleural effusion. Cardiomediastinal silhouette is normal. There is no evidence of pulmonary edema. IMPRESSION: No acute cardiopulmonary findings. Electronically signed by: Delmar Hood M.D. 06/04/2016 2:05 PM Dictated Date/Time: 06/04/2016 2:05 PM
[2016-06-04 14:40] LABS: BENZODIAZEPINE, URINE NEG (NEG); COCAINE,URINE NEG (NEG); PHENCYCLIDINE, URINE NEG (NEG)
[2016-06-04 15:23] LABS: PREG INTERNAL NEGATIVE QC NEG CLEAR BACKGROUND; PREG INTERNAL POSITIVE QC POS CONTROL LINE
--- NOTE | 2016-06-04 15:25 | DIAGNOSTIC IMAGING REPORT ---
EXAMINATION: PELVIC ULTRASOUND CLINICAL HISTORY: heavy vaginal bleeding PELVIC PAIN COMPARISON STUDY: None FINDINGS: The uterus measured 9.9 cm. The endometrial stripe measured 8 mm. The right ovary measured 2.7 cm maximum dimension with normal vascular flow. 1.3 cm cyst.. The left ovary measured 2.2 cm maximum dimension. Normal vascular flow.. There is no ultrasonographic evidence of ovarian torsion. It should be noted that ovarian torsion can be present with normal Doppler ultrasonographic findings. There was no evidence of pathologic free pelvic fluid. IMPRESSION: 1. Small right renal cyst. Otherwise negative study Electronically signed by: Boaz Chiang M.D. 06/04/2016 3:24 PM Dictated Date/Time: 06/04/2016 3:22 PM
--- NOTE | 2016-06-04 17:24 | History and Physical ---
History & Physical Date & Time of Service: Jun 04, 2016 at 17:16 Chief Complaint: Increased Stroke-Like Symptoms Primary Care Physician: Alyson Chapman History of Present Illness 45 yo F with PMHx recent CVA involving the left hemisphere, greatest in the left occipital and parietal lobes and left basal ganglia, with unchanged encephalomalacia in the right frontal lobe from a prior infarct, DM II, HTN, tobacco abuse prior to CVA in April 2016 and hyperlipidemia sent from [facility] due to worsening stroke like symptoms. The patient has expressive aphasia since recent CVA so is unable to provide information regarding reason for transfer here. She says "hi" initially, then with questioning says "no" or shakes her head yes or no to some of my questions. Spoke with nursing staff at [facility] who reports she was starring more during physical therapy this morning and with recent CVA Dr. Mccray recommended transfer. At baseline pt can perform transfer with minimum assist. On 06/02 had H&H checked = hgb 8.8 and hct 25.9. She has had a heavy menstrual period since arrival at [facility] which was 7 days ago, unknown if the pt was having menstrual bleeding while at [facility]. Here in the ED CT head was performed which is stable; small evolving cortex infarcts in the L parietal lobe region. POC glucose was 53 upon arrival, s/p 1/ 2 amp of dextrose and on recheck was 113, hgb is 7.2. VSS. Family History Patient reports no known family medical history. Social History Smoking Status: Former Smoker Drug Use: none Marital Status: Housing status: lives with family, skilled nursing ([facility]) Allergies Coded Allergies: Penicillins (Unverified Allergy, Unknown, UNKNOWN, 06/04/16) Home Medications Scheduled Amlodipine (Norvasc), 5 MG PO DAILY Aspirin (Aspirin EC Low Dose), 81 MG PO QAM Atorvastatin (Atorvastatin Calcium), 20 MG PO QAM Enoxaparin (Lovenox), 40 MG SQ DAILY Insulin Aspart (Novolog Flexpen), 0 UNITS SC ACHS Insulin Glargine (Lantus Solostar), 12 UNIT SC BID Metoprolol Tartrate (Metoprolol Tartrate), 100 MG PO BID Miscellaneous Medications Acetaminophen Tab (Tylenol), 325 MG PO Senna (Senokot), 1 TAB PO Review of Systems Constitutional: + fatigue, No chills, No fever Eyes: No problem reported ENT: No problem reported Respiratory: No shortness of breath Cardiovascular: No chest pain, No palpitations Abdomen: No nausea, No pain Musculoskeletal: No joint pain, No swelling Genitourinary - Female: + vaginal bleeding Neurologic: + balance problems, + weakness Integumentary: No itch, No rash Physical Exam Vital Signs Date Time Temp Pulse Resp B/P Pulse Ox O2 Delivery O2 Flow Rate FiO2 06/04/16 16:51 81 16 103/73 100 Room Air 06/04/16 15:19 81 18 120/64 98 Room Air 06/04/16 14:26 71 18 113/61 100 Room Air 06/04/16 13:54 71 06/04/16 13:02 74 18 142/83 98 Room Air 06/04/16 12:40 100 Room Air 06/04/16 11:56 77 06/04/16 11:33 36.6 89 18 114/75 100 Room Air General Appearance: no apparent distress, + obese, + pertinent finding ( Difficult to awaken) Head: normocephalic, atraumatic Eyes: PERRL, EOMI ENT: hearing grossly normal, pharynx normal, + pertinent finding (poor dentition. mucous membranes moist) Neck: supple, no JVD Respiratory/Chest: chest non-tender, normal breath sounds, no respiratory distress, no accessory muscle use Cardiovascular: regular rate, rhythm, no murmur, normal peripheral pulses Abdomen/GI: normal bowel sounds, non tender, soft, no organomegaly Genitourinary - Female: + pertinent finding (+ bleeding on chucks pad in bed) Extremities/Musculoskelatal: no calf tenderness, no pedal edema Neurologic/Psych: + aphasia, + disoriented, + pertinent finding (+ R arm contracture, unable to squeeze with right hand. +Expressive aphasia. Unable to test strength in LE due to not following all commands, pt moves BLE throughout exam. ) Skin: normal color, warm/dry Diagnostics Laboratory Results Results Past 24 Hours Test 06/04/16 12:38 06/04/16 12:55 06/04/16 12:58 06/04/16 13:40 Range/Units Bedside Glucose 53 117 70-90 mg/dl White Blood Count 11.32 4.8-10.8 K/uL Red Blood Count 2.67 4.2-5.4 M/uL Hemoglobin 7.2 12.0-16.0 g/dL Hematocrit 21.0 37-47 % Mean Corpuscular Volume 78.7 80-100 fL Mean Corpuscular Hemoglobin 27.0 25-34 pg Mean Corpuscular Hemoglobin Concent 34.3 32-36 g/dl Platelet Count 216 130-400 K/uL Mean Platelet Volume 9.4 7.4-10.4 fL Neutrophils (%) (Auto) 76.6 % Lymphocytes (%) (Auto) 17.6 % Monocytes (%) (Auto) 4.3 % Eosinophils (%) (Auto) 0.9 % Basophils (%) (Auto) 0.2 % Neutrophils # (Auto) 8.68 1.4-6.5 K/uL Lymphocytes # (Auto) 1.99 1.2-3.4 K/uL Monocytes # (Auto) 0.49 0.11-0.59 K/uL Eosinophils # (Auto) 0.10 0-0.5 K/uL Basophils # (Auto) 0.02 0-0.2 K/uL RDW Standard Deviation 38.0 36.4-46.3 fL RDW Coefficient of Variation 13.3 11.5-14.5 % Immature Granulocyte % (Auto) 0.4 % Immature Granulocyte # (Auto) 0.04 0.00-0.02 K/uL Red Blood Cell Morphology Unremarkable Prothrombin Time 10.6 9.0-12.0 SECONDS Prothromb Time International Ratio 1.0 0.9-1.1 Activated Partial Thromboplast Time 22.7 21.0-31.0 SECONDS Partial Thromboplastin Ratio 0.9 Sodium Level 139 136-145 mmol/L Potassium Level 4.5 3.5-5.1 mmol/L Chloride Level 110 98-107 mmol/L Carbon Dioxide Level 20 21-32 mmol/L Anion Gap 9.0 3-11 mmol/L Blood Urea Nitrogen 54 7-18 mg/dl Creatinine 2.10 0.60-1.20 mg/dl Est Creatinine Clear Calc Drug Dose 37.3 ml/min Estimated GFR () 32.6 Estimated GFR (Non- 28.1 BUN/Creatinine Ratio 25.6 10-20 Random Glucose 131 70-99 mg/dl Calcium Level 8.7 8.5-10.1 mg/dl Total Creatine Kinase 18 26-192 U/L Creatine Kinase MB < 0.5 0.5-3.6 ng/ml Creatine Kinase MB Ratio 0-3.0 Troponin I < 0.015 0-0.045 ng/ml Human Chorionic Gonadotropin, Qual NEG NEG Urine Color YELLOW Urine Appearance CLOUDY CLEAR Urine pH 5.5 4.5-7.5 Urine Specific [place] 1.009 1.000-1.030 Urine Protein TRACE NEG Urine Glucose (UA) NEG NEG Urine Ketones NEG NEG Urine Occult Blood NEG NEG Urine Nitrite NEG NEG Urine Bilirubin NEG NEG Urine Urobilinogen NEG NEG Urine Leukocyte Esterase NEG NEG Urine WBC (Auto) 1-5 0-5 /hpf Urine RBC (Auto) 0-4 0-4 /hpf Urine Hyaline Casts (Auto) 1-5 0-5 /lpf Urine Epithelial Cells (Auto) 10-20 0-5 /lpf Urine Bacteria (Auto) 1+ NEG Urine Opiates Screen NEG NEG Urine Methadone, Qualitative NEG NEG Urine Barbiturates NEG NEG Urine Phencyclidine (PCP) Level NEG NEG Ur Amphetamine/Methamphetamine NEG NEG MDMA (Ecstasy) Screen NEG NEG Urine Benzodiazepines Screen NEG NEG Urine Cocaine Metabolite NEG NEG Urine Marijuana (THC) NEG NEG Microbiology Results 06/04/16 Urine Culture, Received Pending Diagnostic Radiology CT SCAN OF THE BRAIN WITHOUT IV CONTRAST CLINICAL HISTORY: Strokelike symptoms. COMPARISON STUDY: CT and MRI of the brain dated 05/05/2016. TECHNIQUE: Unenhanced axial CT scan of the brain is performed from the vertex to the skull base. Automated dose control exposure was utilized. CT DOSE: 537.48 mGy.cm FINDINGS: Brain parenchyma: A large region of right frontoparietal encephalomalacia is unchanged and consistent with remote infarct. There is associated ex vacuo dilatation of the right lateral ventricle. Evolving infarcts are again seen in the left posterior parietal region. There are also chronic lacunar infarcts in the basal ganglia. There is no hemorrhage, mass effect, or evidence of acute territorial ischemia by CT criteria. No extra-axial fluid collection is seen. Ventricles, sulci, cisterns: Normal in configuration. Megacisterna magna is incidentally noted. Intracranial vasculature: The visualized intracranial vasculature at the skull base is normal in appearance. Calvarium: Unremarkable. Sinuses and mastoids: The visualized paranasal sinuses are clear. The mastoid air cells are well pneumatized. Orbits: The bony orbits are grossly intact. IMPRESSION: 1. There is no hemorrhage, mass effect, or evidence of acute territorial ischemia by CT criteria. 2. A remote right frontoparietal infarct is unchanged. 3. Small evolving cortical infarcts are identified in the left parietal lobe region. These were also seen on 05/05/2016. Electronically signed by: Chirag Finney M.D. 06/04/2016 1:21 PM Dictated Date/Time: 06/04/2016 1:16 PM The status of this report is Signed. CHEST ONE VIEW PORTABLE CLINICAL HISTORY: Stroke like symptoms. COMPARISON STUDY: Chest radiograph May 05, 2016 per FINDINGS: Lung volumes are normal. Lungs are clear. There is no pneumothorax or pleural effusion. Cardiomediastinal silhouette is normal. There is no evidence of pulmonary edema. IMPRESSION: No acute cardiopulmonary findings. Electronically signed by: Delmar Hood M.D. 06/04/2016 2:05 PM Dictated Date/Time: 06/04/2016 2:05 PM The status of this report is Signed. EXAMINATION: PELVIC ULTRASOUND CLINICAL HISTORY: heavy vaginal bleeding PELVIC PAIN COMPARISON STUDY: None FINDINGS: The uterus measured 9.9 cm. The endometrial stripe measured 8 mm. The right ovary measured 2.7 cm maximum dimension with normal vascular flow. 1.3 cm cyst.. The left ovary measured 2.2 cm maximum dimension. Normal vascular flow.. There is no ultrasonographic evidence of ovarian torsion. It should be noted that ovarian torsion can be present with normal Doppler ultrasonographic findings. There was no evidence of pathologic free pelvic fluid. IMPRESSION: 1. Small right renal cyst. Otherwise negative study Electronically signed by: Boaz Chiang M.D. 06/04/2016 3:24 PM Dictated Date/Time: 06/04/2016 3:22 PM The status of this report is Signed. Impression Assessment and Plan 45 yo F with PMHx recent CVA involving the left hemisphere, greatest in the left occipital and parietal lobes and left basal ganglia, with unchanged encephalomalacia in the right frontal lobe from a prior infarct, DM II, HTN, tobacco abuse prior to CVA in April 2016, hyperlipidemia and protein C deficiency sent from [facility] due to worsening stroke like symptoms. Acute Blood Loss Anemia - Admit to main campus medical center - Hgb 7.2 today, down from 12 during last admission for CVA (May 05-). H&H check at SNF on 06/02 was 8.2 and 25.9. - Has protein C deficiency - Spoke with sister, Linh Sommers, over the phone at ~ 6:10pm and discussed the care of Deisi. All her questions and concerns were answered. She was agreeable to blood transfusion and verbally consented with Dr. Mariza Cabrera present. - Check type and screen, Will transfuse 1 U PRBCs now - Stop lovenox - NSS at 100mL/hr - Follow daily labs CVA involving the left hemisphere, greatest in the left occipital and parietal lobes and left basal ganglia, with unchanged encephalomalacia in the right frontal lobe from a prior infarct - CT head completed: Impression 1. There is no hemorrhage, mass effect, or evidence of acute territorial ischemia by CT criteria. 2. A remote right frontoparietal infarct is unchanged. 3. Small evolving cortical infarcts are identified in the left parietal lobe region. These were also seen on 05/05/2016. - Passed speech eval during last admission and per SNF- Diet allowed with mechanical soft, thin liquids, aspiration precautions, straws ok, assist with meals - Permissive HTN still allowed as per neuro recs: 150/90 - 120/80 DM II - Possible that an episode of hypoglycemia added to pt symptoms earlier today. POC glucose was 53 and pt required a 1/2 amp of Dextrose - Will cut Lantus in half tonight to 6 U with poor oral intake throughout the day. Will decrease AM Lantus to 10 U instead of 12 U. - ISS with accuchecks ACHS Hyperlipidemia - Cont Statin DVT ppx: chemical anticoagulation contraindicated, SCDs CODE STATUS: FULL CODE Disposition: From [facility], family all out of state. Level of Care Telemetry Resuscitation Status FULL RESUSCITATION VTE Prophylaxis VTE Risk Assessment Done? Y/N: Yes Risk Level: Very Low Given or contraindicated: SCD's Social Service Consult Lives in Alf Reviewed: Pt Seen/Exam by Me, RN Notes, HO Notes, Prior Records, Labs, RAD History I agree with PA H&P with some modifications as below 45 yo F with PMHx recent CVA involving the left hemisphere, greatest in the left occipital and parietal lobes and left basal ganglia, with unchanged encephalomalacia in the right frontal lobe from a prior infarct, DM II, HTN, tobacco abuse prior to CVA in April 2016, hyperlipidemia and protein C deficiency sent from [facility] due to worsening stroke like symptoms. Constitutional: denies: chills Respiratory: negative: cough Cardiovascular: denies chest pain Gastrointestinal/Abdominal: negative: abdominal pain Musculoskeletal: negative: back pain Neurological/Psych: negative: anxiety Hematologic/Lymphatic: negative: anemia General Appearance: WD/WN, no apparent distress Eye Exam: bilateral eye normal inspection Ears, Nose, Throat: hearing grossly normal Neck: full range of motion Respiratory: chest non-tender Cardiovascular: normal peripheral pulses, no gallop Gastrointestinal: soft Extremities: non-tender Neurologic/Psychiatric: normal mood/affect Skin Characteristics: cyanosis Assessment/Plan 45 yo F with PMHx recent CVA involving the left hemisphere, greatest in the left occipital and parietal lobes and left basal ganglia, with unchanged encephalomalacia in the right frontal lobe from a prior infarct, DM II, HTN, tobacco abuse prior to CVA in April 2016, hyperlipidemia and protein C deficiency sent from [facility] due to worsening stroke like symptoms. Acute Blood Loss Anemia Hgb 7.2 today, down from 12 during last admission for CVA (May 05-). H&H check at SNF on 06/02 was 8.2 and 25.9. Has protein C deficiency transfuse 1 U PRBCs now Stop lovenox NSS at 100mL/hr CVA involving the left hemisphere, greatest in the left occipital and parietal lobes and left basal ganglia, with unchanged encephalomalacia in the right frontal lobe from a prior infarct CT head completed: Impression 1. There is no hemorrhage, mass effect, or evidence of acute territorial ischemia by CT criteria. 2. A remote right frontoparietal infarct is unchanged. 3. Small evolving cortical infarcts are identified in the left parietal lobe region. These were also seen on 05/05/2016. Passed speech eval during last admission and per SNF- Diet allowed with mechanical soft, thin liquids, aspiration precautions, straws ok, assist with meals Permissive HTN still allowed as per neuro recs: 150/90 - 120/80 DM II with hypoglycemia, POC glucose was 53 and pt required a 1/2 amp of Dextrose cut Lantus in half tonight to 6 U with poor oral intake throughout the day. Will decrease AM Lantus to 10 U instead of 12 U. ISS with accuchecks ACHS Hyperlipidemia Cont Statin DVT proph: chemical anticoagulation contraindicated, SCDs CODE STATUS: FULL CODE Disposition: From [facility], family all out of state. case discussed with SHIRA Palm time spent 40 min
[2016-06-04] MEDS ORDERED: ACETAMINOPHEN 325 MG TAB PO PRN ×2 (17:45)
[2016-06-04] MEDS ORDERED: ONDANSETRON INJ 2 MG/ML 2 ML VIAL IV PRN (17:45)
[2016-06-04] MEDS ORDERED: GLUCAGON FOR INJ 1 MG VIAL SQ PRN ×2 (18:45)
[2016-06-04] MEDS ORDERED: DEXTROSE 50% 50 ML SYR IV PRN ×2 (18:45)
[2016-06-04] MEDS ORDERED: GLUCOSE 40% GEL 15 GM TUBE PO PRN ×2 (18:45)
[2016-06-04] MEDS ORDERED: GLUCOSE 10 TABS/TUBE PO PRN ×2 (18:45)
[2016-06-04] MEDS ORDERED: IV FLUIDS COMPLETED PRN (20:15)
[2016-06-04] MEDS: INSULIN ASPART 100 UNITS/ML 3 ML PEN SC SCH (21:00)
[2016-06-04] MEDS ORDERED: INSULIN ASPART 100 UNITS/ML 3 ML PEN SC SCH (21:00)
[2016-06-04] MEDS ORDERED: INSULIN GLARGINE SOLOSTAR 100 UNITS/ML 3 ML PEN SC SCH (21:00)
[2016-06-04] MEDS: METOPROLOL TARTRATE 100 MG TAB PO SCH (21:28)
[2016-06-04] MEDS: INSULIN GLARGINE SOLOSTAR 100 UNITS/ML 3 ML PEN SC SCH (21:30)
[2016-06-05] VITALS (10 sets, daily range): BP systolic 81–138; BP diastolic 53–78; PULSE 67–79; TEMP 36.3–37; O2SAT 95–99; Ht 162.6 cm; Wt 88.3 kg
[2016-06-05 05:59] LABS: BASO % 0.1 %; BASO ABS # 0.01 K/uL (0-0.2); EOS % 3.1 %; HEMATOCRIT 23.9 % (37-47); IG% 0.3 %; LYMPH % 33.1 %; LYMPH ABS # 2.63 K/uL (1.2-3.4); MEAN CELL VOLUME 82.1 fL (80-100); MEAN CORPUSCULAR HEMOGLOBIN 27.8 pg (25-34); MEAN CORPUSCULAR HGB CONC 33.9 g/dl (32-36); MEAN PLATELET VOLUME 9.3 fL (7.4-10.4); MONO % 6.8 %; NEUT % 56.6 %; PLATELET COUNT 185 K/uL (130-400); RED BLOOD COUNT 2.91 M/uL (4.2-5.4); WHITE BLOOD COUNT 7.94 K/uL (4.8-10.8)
[2016-06-05 06:26] LABS: COMPLETE YES
[2016-06-05 06:36] LABS: BUN/CREATININE RATIO 24.7 (10-20); CALCIUM 8.5 mg/dl (8.5-10.1); CREATININE 1.8 mg/dl (0.60-1.20); POTASSIUM 4.8 mmol/L (3.5-5.1)
[2016-06-05] MEDS: INSULIN ASPART 100 UNITS/ML 3 ML PEN SC SCH ×4 (07:30→20:47)
[2016-06-05] MEDS: AMLODIPINE BESYLATE 5 MG TAB PO SCH (08:03)
[2016-06-05] MEDS: ATORVASTATIN 20 MG TAB PO SCH (08:03)
[2016-06-05] MEDS: METOPROLOL TARTRATE 100 MG TAB PO SCH ×2 (08:03→20:47)
[2016-06-05] MEDS: ASPIRIN 81 MG ECTAB PO SCH (08:03)
[2016-06-05] MEDS: SENNA 8.6 MG TAB PO SCH (08:03)
[2016-06-05] MEDS: INSULIN GLARGINE SOLOSTAR 100 UNITS/ML 3 ML PEN SC SCH ×2 (08:10→20:46)
--- NOTE | 2016-06-05 10:17 | Progress Note ---
Subjective Date of Service: Jun 05, 2016. Subjective Pt evaluation today including: conversation w/ patient, physical exam, chart review (including last hospital stay as well), lab review, review of studies, review of inpatient medication list very little HPI and ROS obtainable - and difficult to verify accuracy of the nodding she answers given that she doesn't reliably follow commands and answers nodding "yes" far more than nodding "no" appears bright, makes eye contact, smiling. no answer to asking if she feels better/if she feels like she's more her recent self than before yes to heavier than normal period yes to seeing blood in stool - but with a bright smile no to vomiting/vomiting blood no other HPI or ROS obtainable at this time Problem List Medical Problems: (1) Altered mental status Status: Acute (2) Hyperglycemia Status: Acute (3) Hypertension Status: Acute (4) Hypoglycemia Status: Acute (5) Severe anemia Status: Acute (6) Vaginal bleeding Status: Acute Review of Systems ros otherwise negative except for as above Objective Vital Signs Date Time Temp Pulse Resp B/P Pulse Ox O2 Delivery O2 Flow Rate FiO2 06/05/16 07:42 69 110/72 06/05/16 06:59 36.3 67 18 99/65 95 Room Air 81/53 06/05/16 04:16 36.7 77 18 100/66 99 Room Air 06/05/16 04:00 Room Air 06/05/16 01:46 36.8 70 18 91/64 99 06/05/16 01:10 36.8 75 20 118/78 98 06/05/16 00:10 36.5 79 18 117/75 99 06/05/16 00:00 Room Air 06/04/16 23:10 36.5 80 18 89/59 99 06/04/16 23:08 36.5 80 18 89/59 99 Room Air 06/04/16 22:40 36.7 77 18 95/68 96 06/04/16 22:25 36.6 82 20 104/74 100 06/04/16 22:05 37.2 83 18 102/72 99 06/04/16 20:43 36.7 68 18 105/71 96 Room Air 06/04/16 20:30 Room Air 06/04/16 20:07 88 16 124/87 98 Room Air 06/04/16 18:33 90 18 121/72 96 Room Air 06/04/16 17:54 90 06/04/16 16:51 81 16 103/73 100 Room Air 06/04/16 15:19 81 18 120/64 98 Room Air 06/04/16 14:26 71 18 113/61 100 Room Air 06/04/16 13:54 71 06/04/16 13:02 74 18 142/83 98 Room Air 06/04/16 12:40 100 Room Air 06/04/16 11:56 77 06/04/16 11:33 36.6 89 18 114/75 100 Room Air Physical Exam General Appearance: no apparent distress (smiling, bright eye contact, nad) Eyes: EOMI (but doesn't follow command to follow fingers with eyes) ENT: hearing grossly normal (responds regularly to voice) Neck: trachea midline Respiratory/Chest: lungs clear, normal breath sounds, no respiratory distress, no accessory muscle use Cardiovascular: regular rate, rhythm Extremities: + pertinent finding (no calf tenderness) Neurologic/Psychiatric: alert, + pertinent finding (L side hemiparesis, expressive aphasia - no verbalization, nods yes, nods no, smiles. irregularly follows commands (squeeze hand, followed by squeeze hand twice was done well, but no other commands were reliably followed)) Laboratory Results Last 24 Hours Test 06/04/16 12:38 06/04/16 12:55 06/04/16 12:58 06/04/16 13:40 Bedside Glucose 53 mg/dl 117 mg/dl White Blood Count 11.32 K/uL Red Blood Count 2.67 M/uL Hemoglobin 7.2 g/dL Hematocrit 21.0 % Mean Corpuscular Volume 78.7 fL Mean Corpuscular Hemoglobin 27.0 pg Mean Corpuscular Hemoglobin Concent 34.3 g/dl Platelet Count 216 K/uL Mean Platelet Volume 9.4 fL Neutrophils (%) (Auto) 76.6 % Lymphocytes (%) (Auto) 17.6 % Monocytes (%) (Auto) 4.3 % Eosinophils (%) (Auto) 0.9 % Basophils (%) (Auto) 0.2 % Neutrophils # (Auto) 8.68 K/uL Lymphocytes # (Auto) 1.99 K/uL Monocytes # (Auto) 0.49 K/uL Eosinophils # (Auto) 0.10 K/uL Basophils # (Auto) 0.02 K/uL RDW Standard Deviation 38.0 fL RDW Coefficient of Variation 13.3 % Immature Granulocyte % (Auto) 0.4 % Immature Granulocyte # (Auto) 0.04 K/uL Red Blood Cell Morphology Unremarkable Prothrombin Time 10.6 SECONDS Prothromb Time International Ratio 1.0 Activated Partial Thromboplast Time 22.7 SECONDS Partial Thromboplastin Ratio 0.9 Sodium Level 139 mmol/L Potassium Level 4.5 mmol/L Chloride Level 110 mmol/L Carbon Dioxide Level 20 mmol/L Anion Gap 9.0 mmol/L Blood Urea Nitrogen 54 mg/dl Creatinine 2.10 mg/dl Est Creatinine Clear Calc Drug Dose 37.3 ml/min Estimated GFR () 32.6 Estimated GFR (Non- 28.1 BUN/Creatinine Ratio 25.6 Random Glucose 131 mg/dl Calcium Level 8.7 mg/dl Total Creatine Kinase 18 U/L Creatine Kinase MB < 0.5 ng/ml Creatine Kinase MB Ratio Troponin I < 0.015 ng/ml Human Chorionic Gonadotropin, Qual NEG Urine Color YELLOW Urine Appearance CLOUDY Urine pH 5.5 Urine Specific [place] 1.009 Urine Protein TRACE Urine Glucose (UA) NEG Urine Ketones NEG Urine Occult Blood NEG Urine Nitrite NEG Urine Bilirubin NEG Urine Urobilinogen NEG Urine Leukocyte Esterase NEG Urine WBC (Auto) 1-5 /hpf Urine RBC (Auto) 0-4 /hpf Urine Hyaline Casts (Auto) 1-5 /lpf Urine Epithelial Cells (Auto) 10-20 /lpf Urine Bacteria (Auto) 1+ Urine Opiates Screen NEG Urine Methadone, Qualitative NEG Urine Barbiturates NEG Urine Phencyclidine (PCP) Level NEG Ur Amphetamine/Methamphetamine NEG MDMA (Ecstasy) Screen NEG Urine Benzodiazepines Screen NEG Urine Cocaine Metabolite NEG Urine Marijuana (THC) NEG Test 06/04/16 19:29 06/04/16 21:27 06/05/16 01:43 06/05/16 05:44 Bedside Glucose 89 mg/dl 98 mg/dl 122 mg/dl White Blood Count 7.94 K/uL Red Blood Count 2.91 M/uL Hemoglobin 8.1 g/dL Hematocrit 23.9 % Mean Corpuscular Volume 82.1 fL Mean Corpuscular Hemoglobin 27.8 pg Mean Corpuscular Hemoglobin Concent 33.9 g/dl Platelet Count 185 K/uL Mean Platelet Volume 9.3 fL Neutrophils (%) (Auto) 56.6 % Lymphocytes (%) (Auto) 33.1 % Monocytes (%) (Auto) 6.8 % Eosinophils (%) (Auto) 3.1 % Basophils (%) (Auto) 0.1 % Neutrophils # (Auto) 4.49 K/uL Lymphocytes # (Auto) 2.63 K/uL Monocytes # (Auto) 0.54 K/uL Eosinophils # (Auto) 0.25 K/uL Basophils # (Auto) 0.01 K/uL RDW Standard Deviation 42.7 fL RDW Coefficient of Variation 14.3 % Immature Granulocyte % (Auto) 0.3 % Immature Granulocyte # (Auto) 0.02 K/uL Red Blood Cell Morphology Unremarkable Sodium Level 143 mmol/L Potassium Level 4.8 mmol/L Chloride Level 114 mmol/L Carbon Dioxide Level 18 mmol/L Anion Gap 11.0 mmol/L Blood Urea Nitrogen 45 mg/dl Creatinine 1.80 mg/dl Est Creatinine Clear Calc Drug Dose 43.2 ml/min Estimated GFR () 39.3 Estimated GFR (Non- 33.9 BUN/Creatinine Ratio 24.7 Random Glucose 102 mg/dl Calcium Level 8.5 mg/dl Test 06/05/16 07:16 Bedside Glucose 120 mg/dl Assessment and Plan worsening stroke like symptoms -seems to have been more staring episodes -currently not showing this, but also unable to provide meaningful HPI or ROS, and neurologic exam already with diffuse and dense deficits -- more than likely the staring spells/appearance of worsening relates to anemia - and if at all cerebrovascular likely watershed due to poor perfusion - but without being able to tell reliably, and with ongoing concern of ?does she need anticoagulation - MRI brain to eval for new areas of infarct -also concerning on ddx that would not be stroke - low sugar - see below. -as best can be reliably ascertained - seems better post transfusion -continue tele to screen for occult afib Acute Blood Loss Anemia -hemodynamically stable - Hgb improved post transfusion - continue to follow - seems most likely to have been menstruel blood loss exacerbated by DVT proph lovenox and antiplatelet. no other obvious bleeding. answers "yes" to blood in stool however - will follow and check fecal occult blood - to clarify - has protein C elevation not deficiency - which does not raise risk for thromboembolic events - continue to hold lovenox for now - NSS at 100mL/hr - Follow daily labs CVA involving the left hemisphere, greatest in the left occipital and parietal lobes and left basal ganglia, with unchanged encephalomalacia in the right frontal lobe from a prior infarct - CT head completed: Impression 1. There is no hemorrhage, mass effect, or evidence of acute territorial ischemia by CT criteria. 2. A remote right frontoparietal infarct is unchanged. 3. Small evolving cortical infarcts are identified in the left parietal lobe region. These were also seen on 05/05/2016. - Passed speech eval during last admission and per SNF- Diet allowed with mechanical soft, thin liquids, aspiration precautions, straws ok, assist with meals - as above noted - will need to f/u MRI to look for new areas of stroke given no reliable HPI and difficult to interpret neurologic exam given already present dense deficits - continue to follow for occult PAF and continue to re-evaluate +/- of anticoagulation; consider [facility] -likely mostly from anemia -follow creatinine - had 1 unit blood, ongoing IVF - showing improvement hyperchloremic metabolic acidosis -probably relates to situation w anemia and ARF -anticipate improvement w blood and fluids DM II - Possible that an episode of hypoglycemia added to pt symptoms. POC glucose was 53 and pt required a 1/2 amp of Dextrose - sugars more acceptable on less insulin - but may need to reduce further Hyperlipidemia - Cont Statin bacteriuria -can't reliably give +/- in regards to sx - no appearance of sepsis; follow off abx; low threshold to reculture DVT ppx: chemical anticoagulation contraindicated until clear with situation regarding anemia, SCDs CODE STATUS: FULL CODE Disposition: From [facility], family all out of state.
[2016-06-05] MEDS: SODIUM CHLORIDE 0.45% 1000ML 1,000 ML IV SCH ×2 (10:26→20:48)
--- NOTE | 2016-06-05 16:01 | DIAGNOSTIC IMAGING REPORT ---
MRI OF THE BRAIN WITHOUT IV CONTRAST CLINICAL HISTORY: Progressive neurologic deficits. COMPARISON STUDY: CT of the brain dated 06/04/16. MRI of the brain dated 05/05/2016. TECHNIQUE: MRI of the brain was performed utilizing various T1 and T2-weighted sequences in the axial, sagittal, and coronal planes. IV contrast was not administered for this examination. The examination is significantly degraded by motion artifact. FINDINGS: Brain parenchyma: There are numerous foci of faint restricted diffusion seen within the left parietal-occipital region as well as in the left basal ganglia and the left-sided periventricular white matter. These were all seen on 05/05/2016 and likely represent evolving infarcts. No new foci of restricted diffusion are identified. There is a large chronic right frontoparietal infarct with associated ex vacuo dilatation of the right lateral ventricle. There is no evidence of hemorrhage or mass effect. No extra-axial fluid collection is seen. The cerebellar tonsils are normal in configuration. Ventricles, sulci, and cisterns: Normal in configuration. Megacisterna magna is incidentally noted. Pituitary and sella: Unremarkable. Intracranial vasculature: There is loss of the right internal carotid artery flow void. The remaining flow voids at the skull base appear maintained. Orbits: The bony orbits are grossly intact. Orbital contents are normal in appearance. Sinuses and mastoids: Clear. Calvarium: Unremarkable. Cervical cord: Partially visualized cervical spinal cord is normal in morphology and signal intensity. IMPRESSION: 1. Motion degraded examination. 2. There are numerous foci of faint restricted diffusion. These were all seen on the 05/05/2016 examination and these likely represent evolving infarcts. 3. No new foci of restricted diffusion are clearly identified. There is no evidence of hemorrhage or mass effect. Electronically signed by: Chirag Finney M.D. 06/05/2016 4:00 PM Dictated Date/Time: 06/05/2016 3:54 PM
[2016-06-06] MEDS: SODIUM CHLORIDE 0.45% 1000ML 1,000 ML IV SCH (03:55)
[2016-06-06 04:25] VITALS: BP 132/83; PULSE 77; TEMP 36.5; O2SAT 95
[2016-06-06 05:53] LABS: BASO % 0.1 %; BASO ABS # 0.01 K/uL (0-0.2); EOS % 3.3 %; HEMATOCRIT 25.2 % (37-47); IG% 0.1 %; LYMPH % 34.6 %; LYMPH ABS # 2.41 K/uL (1.2-3.4); MEAN CELL VOLUME 82.4 fL (80-100); MEAN CORPUSCULAR HEMOGLOBIN 27.5 pg (25-34); MEAN CORPUSCULAR HGB CONC 33.3 g/dl (32-36); MEAN PLATELET VOLUME 9.8 fL (7.4-10.4); NEUT % 53.9 %; PLATELET COUNT 206 K/uL (130-400); RED BLOOD COUNT 3.06 M/uL (4.2-5.4); WHITE BLOOD COUNT 6.96 K/uL (4.8-10.8)
[2016-06-06 06:21] LABS: BUN/CREATININE RATIO 19.8 (10-20); CALCIUM 8.2 mg/dl (8.5-10.1); CREATININE 1.6 mg/dl (0.60-1.20); POTASSIUM 4.3 mmol/L (3.5-5.1)
[2016-06-06 06:29] LABS: COMPLETE YES
[2016-06-06 07:34] VITALS: BP 146/87; PULSE 75; TEMP 36.3; O2SAT 100
[2016-06-06] MEDS: INSULIN ASPART 100 UNITS/ML 3 ML PEN SC SCH ×2 (08:11→12:17)
[2016-06-06] MEDS: SENNA 8.6 MG TAB PO SCH (08:12)
[2016-06-06] MEDS: AMLODIPINE BESYLATE 5 MG TAB PO SCH (08:12)
[2016-06-06] MEDS: ATORVASTATIN 20 MG TAB PO SCH (08:14)
[2016-06-06] MEDS: ASPIRIN 81 MG ECTAB PO SCH (08:14)
[2016-06-06] MEDS: INSULIN GLARGINE SOLOSTAR 100 UNITS/ML 3 ML PEN SC SCH (08:14)
[2016-06-06] MEDS: METOPROLOL TARTRATE 100 MG TAB PO SCH (08:15)
[2016-06-06 11:19] VITALS: BP 142/90; PULSE 78; TEMP 36.5; O2SAT 97
[2016-06-06] MEDS ORDERED: VTMD1000 PO (13:20)
[2016-06-06] MEDS ORDERED: INSDGIPEN SC (13:20)
--- NOTE | 2016-06-06 13:24 | Discharge Instructions ---
Discharge Instructions Admission Reason for Admission: Acute Blood Loss Anemia Discharge Discharge Diagnosis / Problem: anemia - from menstruel losses Discharge Goals Goal(s): Diagnostic testing, Therapeutic intervention Activity Recommendations Activity Level: Assistance Required Therapies: Physical Therapy, Occupational Therapy . Additional Information Patient informed of condition: Yes Advance Directives: No DNR: No Level of Care: Skilled Communicable Disease: No Prognosis: Improving Current Hospital Diet Patient's current hospital diet: Diabetes Type 2 Diet, AHA Diet (Heart Healthy) Discharge Diet Recommended Diet: AHA Diet (Heart Healthy), Diabetes Type 2 Diet Pending Studies Studies pending at discharge: no Physician Orders On Transfer Additional Orders: staring spells - concern on new stroke/TIA - improved dramatically after transfusion, and repeat MRI brain without any new areas of acute infarct -- most likely due to anemia - appears related to menses augmented by aspirin and lovenox. CBC, BMP tomorrow then 06/09 then as directed encourage PO fluids at least 80oz daily pending further BMP call PCP if menstruel blood loss resumes (for considerations for holding aspirin or lovenox, or possibly for need for stat CBC) had low end sugars initially - unclear if it's due to tighter overall control or just poor PO intake from feeling poor from anemia - reduced lantus to 10 units - continue to titrate as warranted vitamin D low at 17 - replacement started, repeat level ~3 months Laboratory Results Hemoglobin A1c Test 05/05/16 20:16 Range/Units Estimated Average Glucose 372 mg/dl Hemoglobin A1c 14.6 H 4.5-5.6 % Lipid Panel Test 05/06/16 03:55 Range/Units Triglycerides Level 582 H 0-150 mg/dl Cholesterol Level 254 H 0-200 mg/dl HDL Cholesterol 34 mg/dl Cholesterol/HDL Ratio 7.5 LDL Cholesterol, Calculated mg/dl Medical Emergencies . Who to Call and When: Medical Emergencies: If at any time you feel your situation is an emergency, please call 911 immediately. . Non-Emergent Contact Non-Emergency issues call your: Primary Care Provider . . "Provider Documentation" section prepared by Omar Friedman. Core Measure Problem Core Measures: None
[2016-06-06 14:13] VITALS: BP 142/90; PULSE 78; TEMP 36.5; O2SAT 97
--- NOTE | 2016-06-06 17:07 | Discharge Summary ---
Discharge Summary Admission Date: Jun 04, 2016 at 18:25 Discharge Date: Jun 06, 2016 Discharge Disposition: long term facility Principal Diagnosis: weakness/staring spells due to anemia (from menstruel blood loss) Problems/Secondary Diagnoses: to clarify for quality measures etc -- THIS DOES NOT APPEAR TO BE IN ANY WAY A NEW STROKE OR NEW TIA - was initially suspected, but after further review ( improvement after transfusion, negative MRI) it fortunately did not appear to be stroke/TIA Procedures: MRI OF THE BRAIN WITHOUT IV CONTRAST CLINICAL HISTORY: Progressive neurologic deficits. COMPARISON STUDY: CT of the brain dated 06/04/16. MRI of the brain dated 05/05/2016. TECHNIQUE: MRI of the brain was performed utilizing various T1 and T2-weighted sequences in the axial, sagittal, and coronal planes. IV contrast was not administered for this examination. The examination is significantly degraded by motion artifact. FINDINGS: Brain parenchyma: There are numerous foci of faint restricted diffusion seen within the left parietal-occipital region as well as in the left basal ganglia and the left-sided periventricular white matter. These were all seen on 05/05/2016 and likely represent evolving infarcts. No new foci of restricted diffusion are identified. There is a large chronic right frontoparietal infarct with associated ex vacuo dilatation of the right lateral ventricle. There is no evidence of hemorrhage or mass effect. No extra-axial fluid collection is seen. The cerebellar tonsils are normal in configuration. Ventricles, sulci, and cisterns: Normal in configuration. Megacisterna magna is incidentally noted. Pituitary and sella: Unremarkable. Intracranial vasculature: There is loss of the right internal carotid artery flow void. The remaining flow voids at the skull base appear maintained. Orbits: The bony orbits are grossly intact. Orbital contents are normal in appearance. Sinuses and mastoids: Clear. Calvarium: Unremarkable. Cervical cord: Partially visualized cervical spinal cord is normal in morphology and signal intensity. IMPRESSION: 1. Motion degraded examination. 2. There are numerous foci of faint restricted diffusion. These were all seen on the 05/05/2016 examination and these likely represent evolving infarcts. 3. No new foci of restricted diffusion are clearly identified. There is no evidence of hemorrhage or mass effect. Electronically signed by: Chirag Finney M.D. 06/05/2016 4:00 PM Dictated Date/Time: 06/05/2016 3:54 PM EXAMINATION: PELVIC ULTRASOUND CLINICAL HISTORY: heavy vaginal bleeding PELVIC PAIN COMPARISON STUDY: None FINDINGS: The uterus measured 9.9 cm. The endometrial stripe measured 8 mm. The right ovary measured 2.7 cm maximum dimension with normal vascular flow. 1.3 cm cyst.. The left ovary measured 2.2 cm maximum dimension. Normal vascular flow.. There is no ultrasonographic evidence of ovarian torsion. It should be noted that ovarian torsion can be present with normal Doppler ultrasonographic findings. There was no evidence of pathologic free pelvic fluid. IMPRESSION: 1. Small right renal cyst. Otherwise negative study Electronically signed by: Boaz Chiang M.D. 06/04/2016 3:24 PM Dictated Date/Time: 06/04/2016 3:22 PM CHEST ONE VIEW PORTABLE CLINICAL HISTORY: Stroke like symptoms. COMPARISON STUDY: Chest radiograph May 05, 2016 per FINDINGS: Lung volumes are normal. Lungs are clear. There is no pneumothorax or pleural effusion. Cardiomediastinal silhouette is normal. There is no evidence of pulmonary edema. IMPRESSION: No acute cardiopulmonary findings. Electronically signed by: Delmar Hood M.D. 06/04/2016 2:05 PM Dictated Date/Time: 06/04/2016 2:05 PM [~ rep ct add3]] CT SCAN OF THE BRAIN WITHOUT IV CONTRAST CLINICAL HISTORY: Strokelike symptoms. COMPARISON STUDY: CT and MRI of the brain dated 05/05/2016. TECHNIQUE: Unenhanced axial CT scan of the brain is performed from the vertex to the skull base. Automated dose control exposure was utilized. CT DOSE: 537.48 mGy.cm FINDINGS: Brain parenchyma: A large region of right frontoparietal encephalomalacia is unchanged and consistent with remote infarct. There is associated ex vacuo dilatation of the right lateral ventricle. Evolving infarcts are again seen in the left posterior parietal region. There are also chronic lacunar infarcts in the basal ganglia. There is no hemorrhage, mass effect, or evidence of acute territorial ischemia by CT criteria. No extra-axial fluid collection is seen. Ventricles, sulci, cisterns: Normal in configuration. Megacisterna magna is incidentally noted. Intracranial vasculature: The visualized intracranial vasculature at the skull base is normal in appearance. Calvarium: Unremarkable. Sinuses and mastoids: The visualized paranasal sinuses are clear. The mastoid air cells are well pneumatized. Orbits: The bony orbits are grossly intact. IMPRESSION: 1. There is no hemorrhage, mass effect, or evidence of acute territorial ischemia by CT criteria. 2. A remote right frontoparietal infarct is unchanged. 3. Small evolving cortical infarcts are identified in the left parietal lobe region. These were also seen on 05/05/2016. Electronically signed by: Chirag Finney M.D. 06/04/2016 1:21 PM Dictated Date/Time: 06/04/2016 1:16 PM Last Resulted CBC 06/06/16 05:15 Red Blood Count 3.06, Mean Corpuscular Volume 82.4, Mean Corpuscular Hemoglobin 27.5, Mean Corpuscular Hemoglobin Concent 33.3, Mean Platelet Volume 9.8, Neutrophils (%) (Auto) 53.9, Lymphocytes (%) (Auto) 34.6, Monocytes (%) (Auto) 8.0, Eosinophils (%) (Auto) 3.3, Basophils (%) (Auto) 0.1, Neutrophils # (Auto) 3.74, Lymphocytes # (Auto) 2.41, Monocytes # (Auto) 0.56, Eosinophils # (Auto) 0.23, Basophils # (Auto) 0.01 Last Resulted BMP 06/06/16 05:15 vitamin D 17.2 Medication Reconciliation New Medications: Cholecalciferol (Vitamin D3) 1,000 Inter.unit Tab 2 TAB PO DAILY, #60 TAB Changed Medications: Insulin Glargine (Lantus Solostar) 100 Unit/Ml Inj 10 UNIT SC BID, #1 BOX 3 Refills (Changed from: 12 UNIT) Continued Medications: Acetaminophen Tab (Tylenol) 325 Mg Tab 325 MG PO, TAB Amlodipine (Norvasc) 5 Mg Tab 5 MG PO DAILY, TAB Aspirin (Aspirin EC Low Dose) 81 Mg Ectab 81 MG PO QAM, #30 TABS 3 Refills Atorvastatin (Atorvastatin Calcium) 20 Mg Tab 20 MG PO QAM, #30 TAB 3 Refills Enoxaparin (Lovenox) 40 Mg/0.4 Ml Inj 40 MG SQ DAILY, SYR Insulin Aspart (Novolog Flexpen) 100 Units/Ml Inj 0 UNITS SC ACHS for 30 Days, #1 BOX 3 Refills Sliding scale: goal LOW 100, HIGH 150 correction factor 15 mg/dL/unit carbohydrate ratio 1 unit per 16 gm carbs consumed Metoprolol Tartrate (Metoprolol Tartrate) 100 Mg Tab 100 MG PO BID, #60 TAB 3 Refills Senna (Senokot) 8.6 Mg Tab 1 TAB PO, TAB Discharge Exam Physical Exam: General Appearance: no apparent distress Eyes: EOMI ENT: hearing grossly normal Neck: trachea midline Respiratory/Chest: no respiratory distress, no accessory muscle use Extremities: normal inspection Neurologic/Psychiatric: outbound telemarketer II-XII nml as tested, alert, + pertinent finding (chronic L sided weakness, but more alert, bright. expressive aphasia but nods yes/no (?reliability / veracity of answers) and verbalizes a little) Hospital Course worsening stroke like symptoms -seems to have been more staring episodes -due to already abnormal neuro exam and difficulty in obtaining HPI - repeat MRI obtained - no new areas of stroke -improved w transfusion -appears to have been (with benefit of hindsight) symptoms due to symptomatic anemia superimposed on her neurologic baseline Acute Blood Loss Anemia -hemodynamically stable - Hgb improved post transfusion - continue to follow up as outpt - seems most likely to have been menstruel blood loss exacerbated by DVT proph lovenox and antiplatelet. period appears to have stopped - given risks/benefits , will resume asa and lovenox - ordered fecal occult blood for completeness but no specimen to test - will ask that this be done as outpt CVA involving the left hemisphere, greatest in the left occipital and parietal lobes and left basal ganglia, with unchanged encephalomalacia in the right frontal lobe from a prior infarct -no afib on monitor -continue to follow -if no etiology presents, may consider [facility] -likely mostly from anemia -creatinine improving -encourage PO intake, follow BMP closely. might need recurrent IVFs but likely to improve w improved PO intake, no further blood loss, and time hyperchloremic metabolic acidosis -probably relates to situation w anemia and ARF DM II - Possible that an episode of hypoglycemia added to pt symptoms. POC glucose was 53 and pt required a 1/2 amp of Dextrose - sugars more acceptable on less insulin - for now will send on reduced lantus ( 10 units) Hyperlipidemia - Cont Statin bacteriuria -can't reliably give +/- in regards to sx - no appearance of sepsis; follow off abx; has had no sx stable for return to [facility] CBC, BMP serially check fecal occult blood for completeness although most likely that anemia was from menses This includes examination of the patient, discharge planning, medication reconciliation, and communication with other providers. Discharge Instructions Please refer to the electronic Patient Visit Report (Discharge Instructions) for additional information. Additional Copies To [place], [place]
== END 2016-06-06 15:02 | DRG 812 ==
LOC: ENRESERVTM → ENRESERVDT → EDBD 11:27 → C.EDC 11:28 → C.MED 18:25 → EDBEDREQSVC 18:52 → EDBEDREQ 19:03
PROVIDERS: ADMIT Hospitalist; ATTEND Hospitalist
DX: D62 Acute posthemorrhagic anemia (principal); N17.9 Acute kidney failure, unspecified; E87.2 Acidosis; D68.59 Other primary thrombophilia; I69.354 Hemiplegia and hemiparesis following cerebral infarction affecting left non-dominant side; N92.0 Excessive and frequent menstruation with regular cycle; T45.525A Adverse effect of antithrombotic drugs, initial encounter; T45.515A Adverse effect of anticoagulants, initial encounter; R41.82 Altered mental status, unspecified; I69.398 Other sequelae of cerebral infarction; G93.89 Other specified disorders of brain; I69.320 Aphasia following cerebral infarction; E11.649 Type 2 diabetes mellitus with hypoglycemia without coma; I48.0 Paroxysmal atrial fibrillation; I10 Essential (primary) hypertension; E78.5 Hyperlipidemia, unspecified; R82.71 Bacteriuria; Z79.01 Long term (current) use of anticoagulants; Z79.4 Long term (current) use of insulin; Z79.82 Long term (current) use of aspirin; Z79.899 Other long term (current) drug therapy; Z87.891 Personal history of nicotine dependence

== ENCOUNTER → 2016-06-09 | Outpatient (CLI) | payer OTHER ==
[~2016-06-09] MED LIST changes: +ACET325T96 PO; +AMLO-110 PO; +ENOX40IN SQ; -LSN20 PO; +SENN-61 PO; +VTMD1000 PO
[2016-06-09 09:29] LABS: HEMATOCRIT 24.1 % (37-47); MEAN CELL VOLUME 81.4 fL (80-100); MEAN CORPUSCULAR HEMOGLOBIN 28.4 pg (25-34); MEAN CORPUSCULAR HGB CONC 34.9 g/dl (32-36); MEAN PLATELET VOLUME 9.4 fL (7.4-10.4); PLATELET COUNT 231 K/uL (130-400); RED BLOOD COUNT 2.96 M/uL (4.2-5.4); WHITE BLOOD COUNT 7.87 K/uL (4.8-10.8)
[2016-06-09 09:36] LABS: BLOOD UREA NITROGEN 28 mg/dl (7-18); BUN/CREATININE RATIO 19.8 (10-20); CALCIUM 8.8 mg/dl (8.5-10.1); CARBON DIOXIDE 21 mmol/L (21-32); CHLORIDE 111 mmol/L (98-107); GLUCOSE 105 mg/dl (70-99); POTASSIUM 3.8 mmol/L (3.5-5.1); SODIUM 144 mmol/L (136-145)
== END ==
LOC: C.LABCC 08:42
PROVIDERS: ATTEND Internal Medicine
DX: Z79.01 Long term (current) use of anticoagulants (principal)

== ENCOUNTER → 2016-06-10 | Outpatient (CLI) | payer OTHER ==
[2016-06-10 08:43] LABS: BASO % 0.3 %; BASO ABS # 0.02 K/uL (0-0.2); EOS % 3.4 %; HEMATOCRIT 23.4 % (37-47); IG% 0.1 %; LYMPH % 35.6 %; LYMPH ABS # 2.72 K/uL (1.2-3.4); MEAN CORPUSCULAR HGB CONC 34.6 g/dl (32-36); MEAN PLATELET VOLUME 9.6 fL (7.4-10.4); MONO % 9.3 %; NEUT % 51.3 %; PLATELET COUNT 237 K/uL (130-400); RED BLOOD COUNT 2.89 M/uL (4.2-5.4); WHITE BLOOD COUNT 7.65 K/uL (4.8-10.8)
[2016-06-10 08:51] LABS: ALT/SGPT 26 U/L (12-78); AST/SGOT 13 U/L (15-37); BLOOD UREA NITROGEN 28 mg/dl (7-18); BUN/CREATININE RATIO 18.4 (10-20); CALCIUM 8.6 mg/dl (8.5-10.1); CARBON DIOXIDE 23 mmol/L (21-32); CHLORIDE 109 mmol/L (98-107); GLUCOSE 127 mg/dl (70-99); SODIUM 142 mmol/L (136-145)
[2016-06-10 08:53] LABS: ALB/GLOB RATIO 0.7 (0.9-2); ALKALINE PHOSPHATASE 78 U/L (45-117)
[2016-06-10 09:24] LABS: COMPLETE YES
== END ==
LOC: C.LABCC 08:02
PROVIDERS: ATTEND Internal Medicine
DX: D64.9 Anemia, unspecified (principal); E11.9 Type 2 diabetes mellitus without complications

== ENCOUNTER → 2016-06-12 | Outpatient (CLI) | payer OTHER ==
[2016-06-12 08:33] LABS: BASO % 0.5 %; BASO ABS # 0.04 K/uL (0-0.2); EOS % 3.4 %; HEMATOCRIT 24.8 % (37-47); IG% 0.3 %; LYMPH % 37.6 %; LYMPH ABS # 2.77 K/uL (1.2-3.4); MEAN CELL VOLUME 81.8 fL (80-100); MEAN CORPUSCULAR HEMOGLOBIN 27.7 pg (25-34); MEAN CORPUSCULAR HGB CONC 33.9 g/dl (32-36); MEAN PLATELET VOLUME 9.5 fL (7.4-10.4); MONO % 7.5 %; NEUT % 50.7 %; PLATELET COUNT 267 K/uL (130-400); RED BLOOD COUNT 3.03 M/uL (4.2-5.4); WHITE BLOOD COUNT 7.36 K/uL (4.8-10.8)
[2016-06-12 09:09] LABS: COMPLETE YES; HYPOCHROMIA PRESENT; POLYCHROMASIA 1+
== END ==
LOC: C.LABCC 07:57
PROVIDERS: ATTEND Internal Medicine
DX: D64.9 Anemia, unspecified (principal)

== ENCOUNTER → 2016-06-17 | Outpatient (CLI) | payer OTHER ==
[2016-06-17 08:07] LABS: BASO % 0.4 %; BASO ABS # 0.03 K/uL (0-0.2); EOS % 2.6 %; IG% 0.2 %; LYMPH % 33.7 %; LYMPH ABS # 2.73 K/uL (1.2-3.4); MEAN CELL VOLUME 82.3 fL (80-100); MEAN CORPUSCULAR HEMOGLOBIN 27.2 pg (25-34); MEAN CORPUSCULAR HGB CONC 33.1 g/dl (32-36); MEAN PLATELET VOLUME 9.4 fL (7.4-10.4); MONO % 7.2 %; NEUT % 55.9 %; PLATELET COUNT 305 K/uL (130-400); RED BLOOD COUNT 3.16 M/uL (4.2-5.4); WHITE BLOOD COUNT 8.11 K/uL (4.8-10.8)
[2016-06-17 08:14] LABS: BLOOD UREA NITROGEN 15 mg/dl (7-18); BUN/CREATININE RATIO 12.4 (10-20); CALCIUM 8.4 mg/dl (8.5-10.1); CARBON DIOXIDE 21 mmol/L (21-32); CHLORIDE 107 mmol/L (98-107); GLUCOSE 99 mg/dl (70-99); POTASSIUM 3.4 mmol/L (3.5-5.1); SODIUM 140 mmol/L (136-145)
[2016-06-17 08:33] LABS: COMPLETE YES
== END ==
LOC: C.LABCC 07:47
PROVIDERS: ATTEND Internal Medicine
DX: Z79.01 Long term (current) use of anticoagulants (principal)

== ENCOUNTER → 2016-06-24 | Outpatient (CLI) | payer OTHER ==
[2016-06-24 08:20] LABS: BASO % 0.3 %; BASO ABS # 0.02 K/uL (0-0.2); COMPLETE YES; EOS % 2.5 %; HEMATOCRIT 27.6 % (37-47); IG% 0.1 %; LYMPH % 32.6 %; MEAN CELL VOLUME 82.4 fL (80-100); MEAN CORPUSCULAR HEMOGLOBIN 27.5 pg (25-34); MEAN CORPUSCULAR HGB CONC 33.3 g/dl (32-36); MEAN PLATELET VOLUME 9.5 fL (7.4-10.4); MONO % 10.1 %; NEUT % 54.4 %; PLATELET COUNT 301 K/uL (130-400); RED BLOOD COUNT 3.35 M/uL (4.2-5.4); WHITE BLOOD COUNT 6.74 K/uL (4.8-10.8)
[2016-06-24 08:27] LABS: BLOOD UREA NITROGEN 14 mg/dl (7-18); CALCIUM 8.6 mg/dl (8.5-10.1); CARBON DIOXIDE 23 mmol/L (21-32); CHLORIDE 104 mmol/L (98-107); GLUCOSE 137 mg/dl (70-99); POTASSIUM 3.7 mmol/L (3.5-5.1); SODIUM 137 mmol/L (136-145)
== END | disposition home or self-care (01) ==
LOC: C.LABCC 08:07
PROVIDERS: ATTEND Internal Medicine
DX: E87.6 Hypokalemia (principal); Z79.01 Long term (current) use of anticoagulants